=== PATIENT | female | born 1980 | race Caucasian/White ===

== ENCOUNTER 2017-04-14 13:45 | Inpatient (IN) ==
[2017-04-14] MEDS ORDERED: Famotidine 20 MG/2 ML VIAL IVP PRN (13:59)
[2017-04-14] MEDS ORDERED: Metoclopramide 10 MG/2 ML VIAL IVP PRN (13:59)
[2017-04-14] MEDS ORDERED: Naloxone 0.4 MG/ML INJ IVP PRN (13:59)
[2017-04-14] MEDS ORDERED: Ondansetron 4 MG/2 ML VIAL IVP PRN (13:59)
[2017-04-14] MEDS ORDERED: Ringers Solution, Lactated 1,000 ML IVC SCH (14:00)
[2017-04-14] MEDS ORDERED: miSOPROStol 25 MCG TABLET PO PRN (14:35)
[2017-04-14] MEDS ORDERED: Lidocaine 1% 20 ML MDV INFILT PRN (14:35)
[2017-04-14 14:47] LABS: Basophils % 0.3 %; Eosinophils # 0.1 K/mcL (0.0-0.6); Immature Granulocytes % 0.5 % (0-4); Lymphocytes % 24.7 %; Mean Corpuscular HGB Conc 31.4 g/dL (31.6-35.5); Mean Corpuscular Volume 89.1 fL (83.0-100.0); Mean Platelet Volume 10.3 fL (9.4-12.4); Monocytes # 0.5 K/mcL (0.0-1.3); Monocytes % 4.4 %; Neutrophils # 8.4 K/mcL (1.6-8.9); Platelet Count 572 K/mcL (140-400); Red Blood Count 3.93 M/mcL (3.82-4.97); Segmented Neutrophils % 69.1 %
[2017-04-14 14:59] LABS: Alanine Aminotransferase 20 Units/L (7-52); Aspartate Amino Transferase 20 Units/L (13-39); BUN/Creatinine Ratio 20 (6-26); Blood Urea Nitrogen 8 mg/dL (6-20); Lactate Dehydrogenase 123 Units/L (140-271); Uric Acid 4.4 mg/dL (2.3-7.6); eGFR For African Americans > 60 (> 60); eGFR For Non-African Americans > 60 (> 60)
--- NOTE | 2017-04-14 15:02 | OB/GYN History & Physical ---
Date of Encounter: 04/14/17 Time of Encounter: 15:11 Assessment and Plan (1) 39 weeks gestation of Current visit: Yes Status: Acute Plan: - admit to L&D - PIH labs obtained - NST reactive - obtain CBC and drug screen - expectant management. Begin induction with cytotec - anticipate (2) complicated by subutex maintenance, antepartum Current visit: Yes Status: Acute (3) History of heroin use Current visit: Yes Status: Acute History of Present Illness Chief complaint: induction of labor for elevated BP HPI: Ms. Hoover is a 37 year old female at 39+1 weeks presented to labor and delivery for induction of labor 2/2 to elevated blood pressure in the office today and N/V, and changes in vision for the past 4 days. Patient's is uncomplicated subutex use. Reports active movement. Patient denies vaginal bleeding, contractions, leakage of fluids. Denies N/V, changes in vision, SANDRA. Patient follows up with Dr. Cruz. PNL: Blood type A+. GBS neg, RI, HBsAG neg, HIV neg. RPR neg. d Past Med Surg Social Fam HX - Past Medical History Source: patient Medical history: hypertension Psychiatric history: anxiety, depression - Past Surgical History Surgical History: no surgical history - Social History Smoking Status: Current every day smoker Packs per day: 1 Smokeless Tobacco Status: No Alcohol use: none Drug use: marijuana - Family History Sister Adopted: [place]: Summer Allen Age: 39 Living Status: Still Living Hx Family Cardiac Disorders: No Hx Family Respiratory Disorders: No Hx Family Cancer: No Hx Family GI Disorders: No Hx Family Genitourinary Disorders: No Hx Family Endocrine Disorder: No Hx Family Musculoskeletal Disorders: No Hx Family Neuromuscular Disorders: No Hx Family Neurologic Disorders: No Hx Family HEENT Disorders: No Hx Family Autoimmune Disorders: No Hx Family Reproductive Disorders: No Hx Family Psychosocial Disorders: No Hx Family Medical Disorders: No Obstetrical History - Pregnancies : 5 Para: 2 Term: 2 : 0 Ab's: 2 Livin - History/Complications History/Complications: Total pregnancies 5. Total living children 2. Miscarriage(s) 1. (s) 1. # 1: 1999-- elective termination. # 2: 2001--miscarriage--- with hemorrage. # 3 11-17-2002-- vag del at 38 weeks, had increased bp -- induction-- female -- 7 lbs 2 oz at [facility]. # 4: 11-07-2008-- VAG DEL AT 38 WEEKS -- FEMALE 6 LBS 0 OZ-- elevated BP-- INDUCTION-- AT [facility] Medications and Allergies Pepcid 2 tab PO BID 03/12/17 [History] Tablet 1 tab PO DAILY 03/12/17 [History] Subutex 8 mg PO BID 03/12/17 [History] Ferrous Sulfate [Iron] 325 mg PO DAILY 04/14/17 [History] 3 Allergy/AdvReac Type Severity Reaction Status Date / Time No Known Allergies Allergy Verified 08/17/16 12:28 Review of System OB All systems PM: reviewed and no additional remarkable complaints except as stated Exam - Constitutional Constitutional: no acute distress - HEENT HEENT: EOMI - Neck Neck exam: full ROM - Lungs Respiratory exam: CTAB - Cardiovascular Cardiovascular exam: RRR - Abdomen Abdomen: Present: bowel sounds normal - Extremities Extremities exam: full ROM - Cervix Dilation: 1 (per Dr. Cruz's exam) Effacement: 80 - Uterus Uterus exam: Present: normal size Results Result Diagrams: 04/14/17 14:30 04/14/17 14:30 Abnormal lab results WBC 12.1 K/mcL (4.3-11.1) H 04/14/17 14:30 Hgb 11.0 g/dL (11.5-15.4) L 04/14/17 14:30 Hct 35.0 % (35.3-44.9) L 04/14/17 14:30 MCHC 31.4 g/dL (31.6-35.5) L 04/14/17 14:30 RDW 15.0 % (11.5-14.5) H 04/14/17 14:30 Plt Count 572 K/mcL (140-400) H 04/14/17 14:30 Creatinine 0.40 mg/dL (0.60-1.20) L 04/14/17 14:30 Lactate Dehydrogenase 123 Units/L (140-271) L 04/14/17 14:30 All other labs normal. - VTE Reasons for not Prescribing Prophylaxis: Treatment not Indicated - Low risk for VTE - Attending Attestation I examined this patient and my medical decision-making was reviewed with the Resident Physician. I agree with the documented findings, disposition and treatment plan as described. Enid Alvarado CNM
--- NOTE | 2017-04-14 18:49 | Anesthesia Evaluation PreOp ---
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 Currently on Subutex. Started subutex June 2016. Former IV drug user. Had 2 relapses during while on subutex, August and October.), Other (chronic low back pain, pain in both hips.) Anesthesia History: No Prior Anesthetic Complications, Past Anesthesia (Had ORIF of wrist fracture, no problems with GA. No FHAP. Had epidurals with previous 2 pregnancies with no problems.) Alcohol Use: none Drug use: marijuana Medications and Allergies Pepcid 2 tab PO BID 03/12/17 [History] Tablet 1 tab PO DAILY 03/12/17 [History] Subutex 8 mg PO BID 03/12/17 [History] Ferrous Sulfate [Iron] 325 mg PO DAILY 04/14/17 [History] 3 Allergy/AdvReac Type Severity Reaction Status Date / Time No Known Allergies Allergy Verified 08/17/16 12:28 - Meds/Allergy Pre-op Review Medications Reviewed: Yes Allergies Reviewed: Yes Beta Blockers on Current Med List: No Anesthesia Results - Labs 04/14/17 14:30 04/14/17 14:30 Anesthesia Exam 112/62, 95, 16. FHTs 120s. Height: 1.68m Weight: 77kg NPO (# of Hours): >12 Pain Scale: 6 Pain Scale Used: Numeric (1 - 10) - HEENT Pupil (Motor): Pupils equal Mallampati: II Teeth: Poor dentition Oral Opening: Greater than 3 - WHALE FISHERMAN LOC: Oriented WHALE FISHERMAN Motor: Normal RUE, Normal LUE, Normal RLE, Normal LLE, Normal Face WHALE FISHERMAN Sensory: Normal: RUE, LUE, RLE, LLE, Face - Cardiac Rhythm: Regular - Pulmonary Breath Sounds: bilateral Clear Respiratory Effort: Symmetrical Anesthesia Assess/Plan ASA Score: 3 Modified Booker Scale for Level of Consciousness: Cooperative, oriented, and tranquil Anesthetic Plan: Regional Monitoring Plan: Standard Monitors
[2017-04-14] MEDS ORDERED: Bupivacaine-MPF 0.25% 10 ML VIAL EP ONE (18:54)
[2017-04-14] MEDS ORDERED: *HR* FentaNYL (PF) 100 MCG/2 ML VIAL EP ONE (18:54)
[2017-04-14] MEDS ORDERED: Epidural Premix (fent/bupiv) 110 ML EP SCH (19:00)
[2017-04-14] MEDS ORDERED: *HR* Buprenorphine HCl 2 MG SUBLINGUAL TABLET SL SCH (21:00)
[2017-04-14] MEDS ORDERED: Oxytocin 20 units/ LR 1000 mL 20 UNIT/1,000 ML BAG IVC SCH (21:45)
[2017-04-14] MEDS ORDERED: *HR* FentaNYL (PF) 100 MCG/2 ML VIAL ONE (23:56)
[2017-04-14] MEDS ORDERED: Bupivacaine-MPF 0.25% 10 ML VIAL ONE (23:56)
[2017-04-14] MEDS ORDERED: Epidural Premix (fent/bupiv) 110 ML EP ONE (23:56)
[2017-04-15] MEDS ORDERED: Famotidine 20 MG TABLET PO SCH (01:00)
--- NOTE | 2017-04-15 01:02 | Anesthesia Procedures ---
Date of Encounter: 04/15/17 Time of Encounter: 23:59 Procedures: Anesthesia - Epidural/Spinal Patient ID/Chart reviewed: Yes Patient examined: Yes OB Eval: Gestational age: 39 OB Eval: : 5 OB Eval: Hx Para: 2 OB Eval: Dilated at (cm): 3 OB Eval: Contractions: Non-stressed pattern Consent Obtained: Yes Supplemental Oxygen: None/Room Air Site Prep: Aseptic Technique, Sterile prep and drape, Povidone-Iodine 1% Patient position: upright Local Anesthetic: Lidocaine 1% (5) Amount of Local Anesthetic used: 5 Touhy Needle Gauge: 18 Touhy Needle Depth (cm): 5 Catheter Depth at Skin (cm): 15 Test Dose (1.5% Lido + Epi): Volume given (mls): 3 Test Dose Result: Negative Loading Dose: 0.25% Marcaine (mls): 8 Loading Dose: Fentanyl (mcg): 100 Loading Dose Administered: Thru Catheter Infusion Med: 0.125% Bupivacaine w/ 2 mcg/ml Fentanyl Infusion Rate (mls/hr): [address]: Tegaderm, Tape Interspace Used: L2-L3 Loss of Resistance (SUNDAY): Yes Blood: No CSF: No Paresthesia: No Procedure: Attempted procedure initially at L3-4, easily found epidural space, but catheter would not thread. Moved up to L2-3 space and easily placed catheter into epidural space. Vitals + FHT's: 3 Vital Signs Time 2359 0034 0035 0040 0045 BP 113/73 118/75 121/75 115/64 107/59 Pulse 77 86 100 92 89 FHTs 120 120 120 120 120
--- NOTE | 2017-04-15 01:59 | OB Labor Progress Note ---
Date of Encounter: 04/15/17 Time of Encounter: 01:55 Labor Progress Note - Subjective Subjective: Patient resting comfortably after epidural placement - Vital Signs Vital Signs: VSS - Cervix Cervix: 3/80/-2 - Heart Tones Heart Tones: 135 category I - [place]: Contractions every 2-3 m inutes - Plan Plan: Continue routine labor management GBS negative Pain is well controlled Pitocin currently infusing, titrate for adequate labor Anticipate vaginal delivery POC per consult with Dr Lala.
--- NOTE | 2017-04-15 02:19 | OB Labor Progress Note ---
Date of Encounter: 04/15/17 Time of Encounter: 02:23 Labor Progress Note - Subjective Subjective: Patient resting comfortably in bed. - Vital Signs Vital Signs: vss - Cervix Cervix: 3-4/80/-2 - Heart Tones Heart Tones: 130's moderate variability - [place]: contractions every 2-4 minutes - Interventions Interventions: AROM for large amount of clear fluid, IUPC placed without difficulty. Patient and fetus tolerated well. - Plan Plan: Continue routine labor management GBS negative Epidural adequate for pain control IUPC placed/titrate pitocin for adequate labor Anticipate vaginal delivery POC per consult with Dr Lala.
[2017-04-15] MEDS ORDERED: Ibuprofen 600 MG TABLET PO PRN (05:09)
[2017-04-15] MEDS ORDERED: Acetaminophen 325 MG TABLET PO PRN ×2 (05:09→08:02)
[2017-04-15] MEDS ORDERED: Oxytocin 20 units/ LR 1000 mL 20 UNIT/1,000 ML BAG IVC SCH ×2 (05:15→08:02)
[2017-04-15] MEDS ORDERED: Ibuprofen 600 MG TABLET PO ONE (05:24)
--- NOTE | 2017-04-15 05:34 | OB/GYN Procedure Note ---
Delivery - Delivery Date: 04/15/17 Provider: Faith Alvarado ([place] PGY1 Assist) Intrapartum events: none Delivery induction: misoprostol Delivery augmentation: rupture of membranes, pitocin Delivery monitor: external FHT, internal uterine Anesthesia: epidural Estimated Blood Loss: 150 - (s) Infant A Delivery Date: 04/15/17 Infant Delivery Time: 05:33 Presentation: vertex Position: BERRY Route of delivery: Gender: Female Viability: Viable Pounds: 7 Ounces: 8 Weight Gram: 3405 kg at 1 minute: 8 at 5 mins: 8 Shoulder Dystocia: not encountered Placenta: spontaneous Cord: 3 umbilical vessels - Repair Episiotomy: none Laceration Description: None - Complications Delivery complications: none Delivery comments: Patient progressed to complete and began pushing. Patient pushed to of viable, vigorous, female in the BERRY position over an intact perineum. No nuchal, no shoulder dystocia, no meconium encountered. placed on maternal abdomen. Cord double clamped and cut when pulsations ceased. Apgars 8 and 8 at 1 and 5 minutes of age. Placenta delivered spontaneously and appears grossly intact with 3 vessel cord. Upon perineal inspection there are no lacerations noted. EBL 150. Mother stable in recovery. care taken over by nursery team. Dr. Callahan PHY1 assisted with delivery. Dr. Lala notified. - Disposition Mom disposition: stable in LDR [place] disposition: taken to nursery
[2017-04-15] MEDS ORDERED: *HR* Heparin 5,000 UNIT/ML VIAL SQ SCH ×2 (06:00→18:00)
[2017-04-15] MEDS: Prenatal Vit/FA 1 EACH TABLET PO SCH (08:18)
[2017-04-15] MEDS: *HR* Buprenorphine HCl 2 MG SUBLINGUAL TABLET SL SCH ×2 (08:46→21:26)
[2017-04-15] MEDS ORDERED: Prenatal Vit/FA 1 EACH TABLET PO SCH (09:00)
[2017-04-15] MEDS: Ibuprofen 600 MG TABLET PO PRN ×2 (10:15→21:28)
[2017-04-15] MEDS: *HR* Heparin 5,000 UNIT/ML VIAL SQ SCH (19:56)
[2017-04-16] MEDS: Ibuprofen 600 MG TABLET PO PRN (03:03)
[2017-04-16 05:19] LABS: Basophils # 0.1 K/mcL (0.0-0.2); Basophils % 0.4 %; Eosinophils # 0.2 K/mcL (0.0-0.6); Eosinophils % 1.3 %; Hematocrit 28.6 % (35.3-44.9); Immature Granulocytes % 0.6 % (0-4); Lymphocytes % 29.6 %; Mean Corpuscular HGB Conc 32.9 g/dL (31.6-35.5); Mean Corpuscular Hemoglobin 29.1 pg (28.0-33.3); Mean Corpuscular Volume 88.5 fL (83.0-100.0); Mean Platelet Volume 10.1 fL (9.4-12.4); Monocytes # 0.8 K/mcL (0.0-1.3); Monocytes % 6.1 %; Neutrophils # 8.4 K/mcL (1.6-8.9); Platelet Count 506 K/mcL (140-400); Red Blood Count 3.23 M/mcL (3.82-4.97); Red Cell Distribution Width 14.6 % (11.5-14.5)
[2017-04-16 05:22] LABS: Hemoglobin 9.4 g/dL (11.5-15.4)
[2017-04-16] MEDS: *HR* Buprenorphine HCl 2 MG SUBLINGUAL TABLET SL SCH (07:41)
[2017-04-16] MEDS: *HR* Heparin 5,000 UNIT/ML VIAL SQ SCH (07:41)
[2017-04-16] MEDS: Prenatal Vit/FA 1 EACH TABLET PO SCH (07:42)
[2017-04-16 08:27] VITALS: BP 115/79
--- NOTE | 2017-04-16 09:34 | Discharge Summary ---
Date of Encounter: 04/16/17 Time of Encounter: 09:32 - Discharge Diagnosis (1) Vaginal delivery Priority: Primary Status: Acute Comments: Pt meeting all milestones. (2) Breast feeding status of mother Priority: Secondary Status: Acute Comments: Pt has seen (3) History of heroin use Priority: Secondary Status: Acute Comments: Continue subutex - Discharge Medications Prescriptions: Ibuprofen [Motrin] 600 mg PO Q6HR PRN #30 tablet PRN Reason: Cramping Docusate [Colace] 100 mg PO BID #30 capsule Home Medications: Pepcid 2 tab PO BID 03/12/17 [History] Tablet 1 tab PO DAILY 03/12/17 [History] Subutex 8 mg PO BID 03/12/17 [History] Ferrous Sulfate [Iron] 325 mg PO DAILY 04/14/17 [History] Docusate [Colace] 100 mg PO BID #30 capsule 04/16/17 [Rx] Ibuprofen [Motrin] 600 mg PO Q6HR PRN #30 tablet 04/16/17 [Rx] Mupirocin [Bactroban Oint] 1 appl TP BID tube 04/16/17 [Rx] Allergies/Adverse Reactions: 3 Allergy/AdvReac Type Severity Reaction Status Date / Time No Known Allergies Allergy Verified 08/17/16 12:28 Data Procedures and tests throughout hospitalization: Laboratory Tests 04/14/17 04/14/17 04/16/17 14:30 14:30 05:11 WBC 12.1 H 13.5 H RBC 3.93 3.23 L Hgb 11.0 L 9.4 L D Hct 35.0 L 28.6 L MCV 89.1 88.5 MCH 28.0 29.1 MCHC 31.4 L 32.9 RDW 15.0 H 14.6 H Plt Count 572 H 506 H MPV 10.3 10.1 Immature Gran % 0.5 0.6 Seg Neutrophils % 69.1 62.0 Lymphocytes % 24.7 29.6 Monocytes % 4.4 6.1 Eosinophils % 1.0 1.3 Basophils % 0.3 0.4 Neutrophils # 8.4 8.4 Lymphocytes # 3.0 4.0 Monocytes # 0.5 0.8 Eosinophils # 0.1 0.2 Basophils # 0.0 0.1 BUN 8 Creatinine 0.40 L Est GFR ( Amer) > 60 Est GFR (Non-Af Amer) > 60 BUN/Creatinine Ratio 20 Uric Acid 4.4 AST 20 ALT 20 Lactate Dehydrogenase 123 L Labs on day of discharge: Labs from last 24 hours 04/16/17 05:11 WBC 13.5 H RBC 3.23 L Hgb 9.4 L D Hct 28.6 L MCV 88.5 MCH 29.1 MCHC 32.9 RDW 14.6 H Plt Count 506 H MPV 10.1 Immature Gran % 0.6 Seg Neutrophils % 62.0 Lymphocytes % 29.6 Monocytes % 6.1 Eosinophils % 1.3 Basophils % 0.4 Neutrophils # 8.4 Lymphocytes # 4.0 Monocytes # 0.8 Eosinophils # 0.2 Basophils # 0.1 Date of admission: 04/14/17 13:45 Primary care physician: PCP VAUGHN Consults: 04/15/17 05:09 Consult to Stem Dryer Maintainer [CONS] Routine Comment: Vaginal delivery, consult needed Consult to Value Engineer [CONS] Routine Reason for SW Consult: Subutex use Discharging clinician: Lisa Ribeiro Anticipated date of discharge: 04/16/17 - Patient Status Disposition: Home, Self-Care Condition: Good Functional capacity at discharge: independent ambulation Overall status at discharge: patient is progressing back to baseline - Discharge Instructions Follow Up With: NONE,PCP [Primary Care Provider] - Alvaro Cruz MD [Partnered Physician] - - Diet and Activity Activity: increase activity as tolerated Diet: regular diet Hospital Course Reason for admission: induction of labor Delivery: Episiotomy: none Laceration: none Other procedures: none complications: none Discharge diagnosis: IUP at term delivered baby: female Hospital course: - Delivery Date: 04/15/17 Provider: Faith Alvarado ([place] PGY1 Assist) Intrapartum events: none Delivery induction: misoprostol Delivery augmentation: rupture of membranes, pitocin Delivery monitor: external FHT, internal uterine Anesthesia: epidural Estimated Blood Loss: 150 - (s) Infant A Infant Delivery Date: 04/15/17 Infant Delivery Time: 05:33 Presentation: vertex Position: BERRY Route of delivery: Gender: Female Viability: Viable Pounds: 7 Ounces: 8 Weight Gram: 3405 kg at 1 minute: 8 at 5 mins: 8 Shoulder Dystocia: not encountered Placenta: spontaneous Cord: 3 umbilical vessels - Repair Episiotomy: none Laceration Description: None - Complications Delivery complications: none - Disposition Mom disposition: discharge to guest PPD#1 disposition: in nursery for KAYLA observation Time Attestation: Total time spent providing and/or coordinating discharge services: Time Spent: Less than 30 minutes Exam - Constitutional Vitals: Temp Pulse Resp BP Pulse Ox 97.5 F L 78 18 115/79 100 04/16/17 03:30 04/16/17 08:26 04/16/17 08:26 04/16/17 08:26 04/16/17 08:26 General appearance IM: A&O X 3, pleasant, no acute distress - Respiratory Respiratory exam: Present: CTAB - Cardiovascular Cardiovascular exam IM: Present: RRR, +S1, +S2 - GI/Abdominal GI/Abdominal exam IM: soft - External exam: normal external exam Uterine Tone: Firm - Extremities Exam Extremities exam IM: Present: normal inspection - Neurological Exam Neurological exam: normal gait, oriented X3 - Psychiatric Additional comments: reports good mood
== END 2017-04-16 12:53 | disposition home or self-care (01) | DRG 560 ==
LOC: 1NENULAB → OBSVTOIN 13:45 → 1NENUOBS 04-15 08:24
PROVIDERS: ADMIT Obstetrics & Gynecology; ATTEND Obstetrics & Gynecology

== ENCOUNTER 2017-04-25 18:15 | Observation (INO) ==
[2017-04-25 18:42] LABS: Bilirubin,Urine Small (Negative); Blood,Urine Large (Negative); Clarity,Urine Clear (Clear); Color,Urine Yellow (Yellow); Glucose,Urine (UA) Normal (Normal); Ketones,Urine Negative (Negative); Leukocyte Esterase,Urine Negative (Negative); Nitrite,Urine Negative (Negative); Protein,Urine Trace mg/dL (Neg-Trace); Specific Gravity,Urine > 1.030 (1.010-1.025); Urobilinogen,Urine Normal (Normal)
[2017-04-25 18:44] LABS: Bacteria,Urine None Seen per hpf (None-Few); Hyaline Casts,Urine None Seen per lpf (None-Few); Squamous Epithelial Cell,Urine Many per lpf (None-Few); WBC,Urine 15-30 per hpf (0-3)
[2017-04-25 18:59] LABS: Basophils # 0.1 K/mcL (0.0-0.2); Basophils % 0.5 %; Eosinophils # 0.1 K/mcL (0.0-0.6); Hemoglobin 12.7 g/dL (11.5-15.4); Immature Granulocytes % 0.4 % (0-4); Lymphocytes # 2.2 K/mcL (0.6-4.6); Lymphocytes % 20.3 %; Mean Corpuscular HGB Conc 31.8 g/dL (31.6-35.5); Mean Corpuscular Hemoglobin 27.7 pg (28.0-33.3); Mean Corpuscular Volume 87.1 fL (83.0-100.0); Mean Platelet Volume 9.2 fL (9.4-12.4); Monocytes # 0.4 K/mcL (0.0-1.3); Neutrophils # 8.1 K/mcL (1.6-8.9); Platelet Count 538 K/mcL (140-400); Red Blood Count 4.59 M/mcL (3.82-4.97); Red Cell Distribution Width 14.6 % (11.5-14.5); Segmented Neutrophils % 73.8 %
[2017-04-25 19:01] LABS: RBC,Urine 0-3 per hpf (0-3)
[2017-04-25 19:15] LABS: Alanine Aminotransferase 46 Units/L (7-52); Albumin 3.9 g/dL (3.5-5.7); Alkaline Phosphatase 121 Units/L (34-104); Aspartate Amino Transferase 35 Units/L (13-39); BUN/Creatinine Ratio 18 (6-26); Bilirubin,Direct 0.1 mg/dL (0.0-0.2); Bilirubin,Indirect 0.3 mg/dL (0.0-1.2); Bilirubin,Total 0.4 mg/dL (0.3-1.0); Blood Urea Nitrogen 9 mg/dL (6-20); Calcium 9.6 mg/dL (8.6-10.3); Carbon Dioxide 25 mEq/L (23-29); Chloride 103 mEq/L (98-107); Glucose 108 mg/dL (70-105); Lipase 6 Units/L (11-82); Osmolality,Calculated 279 (280-300); Sodium 135 mEq/L (136-145); Total Protein 7.9 g/dL (6.4-8.9); eGFR For African Americans > 60 (> 60); eGFR For Non-African Americans > 60 (> 60)
[2017-04-25] MEDS ORDERED: *HR* FentaNYL (PF) 100 MCG/2 ML VIAL IVP ONE ×2 (19:47→23:07)
[2017-04-25] MEDS ORDERED: 0.9 % Sodium Chloride 1,000 ML IVC ONE (19:47)
--- NOTE | 2017-04-25 19:49 | Emergency Department Note ---
START Narrative - START START: START NOTE: Patient arrives to the treatment area c/o lower abd pain. Recent w/o reported complications. H/O 15 cm ovarian cyst. Labs including CBC, BMP, UA results drawn at triage reviewed by me. Patient uncomfortable appearing on exam. Further care to be completed by Dr. Márquez as of 19:48
[2017-04-25] MEDS ORDERED: Ondansetron 4 MG/2 ML VIAL ONE (19:58)
[2017-04-25] MEDS: Ondansetron 4 MG/2 ML VIAL IVP ONE ×2 (20:07→23:15)
--- NOTE | 2017-04-25 20:19 | Emergency Department Note ---
Disposition Clinical Impression: Vaginal delivery Abdominal pain Qualifiers: Abdominal location: left lower quadrant Qualified Code(s): R10.32 - Left lower quadrant pain Ovarian cyst Qualifiers: Laterality: left Qualified Code(s): N83.202 - Unspecified ovarian cyst, left side Disposition: Admitted As Inpatient Condition: Fair Referrals: NONE,PCP [Primary Care Provider] - Forms: ED Satisfaction Letter, Work/School Release Time of Disposition: 23:17 General Adult HPI - General Chief complaint: ED Abdominal Pain Stated complaint: pain Time Seen by Provider: 04/25/17 19:38 Source: patient Limitations: no limitations Nursing Notes Reviewed: Yes Vital Signs Reviewed: Yes - History of Present Illness HPI Narrative: pt presents for abdominal pain that started this morning just before waking. pt is 10 days at this time. delivered a baby vaginally without issue. she has a know 15 cm cyst on her left ovary. pain is in her left lower abdomen. pt had had worsening pain throughout the day and pain is not going away. pt denies fever, chlls, cp, sob, hardy, vision changes, n/v,d. main complaint and reason for evaluation was pain in the left abdomen. Onset (ago): hour(s) Location: abdomen Radiation: abdomen Pain Severity: moderate Pain Scale: 8 Quality: aching, sharp Consistency: Worsening Improves with: nothing Worsens with: movement Associated symptoms: Reports: denies other symptoms Treatments Prior to Arrival: none - Related Data Home Medications Medication Instructions Recorded Confirmed Pepcid 2 tab PO BID 03/12/17 04/14/17 Tablet 1 tab PO DAILY 03/12/17 04/14/17 Subutex 8 mg PO BID 03/12/17 04/14/17 Ferrous Sulfate [Iron] 325 mg PO DAILY 04/14/17 04/14/17 Previous Rx's Medication Instructions Recorded Docusate [Colace] 100 mg PO BID #30 capsule 04/16/17 Ibuprofen [Motrin] 600 mg PO Q6HR PRN #30 tablet 04/16/17 Mupirocin [Bactroban Oint] 1 appl TP BID tube 04/16/17 Allergies Allergy/AdvReac Type Severity Reaction Status Date / Time No Known Allergies Allergy Verified 08/17/16 12:28 All systems ED: reviewed and negative except as stated. Review of Systems: As Per HPI Constitutional: Denies: fever, chills, weakness ENT ED: Denies: ear pain Cardiovascular: Denies: chest pain, palpitations, dyspnea on exertion, orthopnea Respiratory: Denies: dyspnea, wheezes Gastrointestinal: Reports: abdominal pain. Denies: nausea, vomiting, diarrhea, constipation Musculoskeletal: Denies: back pain, neck pain Integumentary: Denies: rash Neurological: Denies: headache, weakness Psychiatric: Denies: anxiety Past Medical History - Past Medical History Attestation: Yes The following information was validated with the patient. Source: patient Medical history: Reports: no medical history Surgical history: Reports: no surgical history Psychiatric history: Reports: anxiety, depression - Social History Smoking Status: Current every day smoker Smokeless Tobacco Status: No Alcohol use: Reports: none Drug use: Reports: opiates, marijuana Physical Exam - General Limitations: no limitations General appearance: alert - ENT ENT exam: normal exam, normal oropharynx, mucous membranes moist - Neck Neck exam: Present: normal inspection, full ROM, trachea midline. Absent: tenderness - Chest Chest inspection: Present: normal inspection, symmetric chest wall rise. Absent : tenderness - Respiratory Respiratory exam: Present: normal lung sounds bilaterally. Absent: respiratory distress, wheezes - Cardiovascular Cardiovascular exam: Present: regular rate, normal rhythm, normal heart sounds - Abdominal Exam Abdominal exam: Present: soft, tenderness, normal bowel sounds. Absent: distention, guarding, rebound, rigidity, Velasquez's sign, Rovsing's sign, tenderness at McBurney's Point - Extremities Exam Extremities exam: Present: normal inspection - Back Exam Back exam: Present: normal inspection, full ROM. Absent: tenderness - Neurological Exam Neurological exam: Present: alert, oriented X3, CN II-XII intact, normal gait - Skin Skin exam: Present: warm, dry, intact, normal color Course Course Narrative: pt seen and examined at the time of arrival. see hpi. pt is 10 days . denied fever, chills, n/v/d, no hardy, no vision changes. pt is otherwise denying all other issues except for pain in the left lower abdomen that came on this morning just prior to waking from sleep. pt has a know cyst on the left ovary that is 15 cm in diameter. pt is scheduled for surgery to remove the cyst in 3 months. no other new symptoms or complaints. on exam, pain is noted diffusely in the abdomen. concern is that the patient may have torsed the ovary secondary to the cyst. hemodynamics are stable. no fever. abdomen is not rigid. no peritoneal symptoms at this time. lungs are clear, heart regular. no discharge or foul smell vaginally. pt has not been seen by ob since the delivery. fluids, pain medication, labs, ua, and us of abdomen ordered to address torsion at this time. pt may need ct of the abdomen once initial work up is completed. will consult ob once work up is completed. - Reevaluation(s) Reevaluation #1: patient found to have concern for vascular insufficiency to the left ovary. consult placed to obstetrics and gigi. China maxwell and I reviewed the imaging and us. She will review the findings with her Attending Dr. Amos. pt is stable. pt will need further evaluation. no pelvic completed at this time. We will wait for their interpretation of the us for disposition. Time: 22:48 Reevaluation #2: Pt evaluated by big data lead and the attending physician. pt will be taken to the surgical suite for evaluation and treatment. no other recommendations. pain medication given. Time: 23:16 Vital Signs Temperature 97.9 F 04/25/17 18:21 Pulse Rate 77 04/25/17 18:21 Respiratory Rate 18 04/25/17 18:21 Blood Pressure 133/86 04/25/17 18:21 O2 Sat by Pulse Oximetry 100 04/25/17 18:21 Temperature 97.9 F 04/25/17 18:21 Pulse Rate 61 04/25/17 22:24 Respiratory Rate 18 04/25/17 22:24 Blood Pressure 114/93 04/25/17 22:24 O2 Sat by Pulse Oximetry 97 04/25/17 22:24 Oxygen Delivery Oxygen Delivery Room Air Medical Decision Making - MDM Narrative Medical decision making narrative: abdominal pain, post vaginal delivery pain, ovarian cyst - Medical Records Medical records reviewed: Yes I reviewed the patient's medical records. - Lab Data Lab results reviewed: Yes I reviewed the patient's lab results. Result diagrams: 04/25/17 18:49 04/25/17 18:49 Lab Results 04/25/17 04/25/17 04/25/17 Range/Units 18:30 18:49 18:49 WBC 11.0 (4.3-11.1) K/mcL RBC 4.59 (3.82-4.97) M/mcL Hgb 12.7 (11.5-15.4) g/dL Hct 40.0 (35.3-44.9) % MCV 87.1 (83.0-100.0) fL MCH 27.7 L (28.0-33.3) pg MCHC 31.8 (31.6-35.5) g/dL RDW 14.6 H (11.5-14.5) % Plt Count 538 H (140-400) K/mcL MPV 9.2 L (9.4-12.4) fL Immature Gran % 0.4 (0-4) % Seg Neutrophils % 73.8 % Lymphocytes % 20.3 % Monocytes % 4.0 % Eosinophils % 1.0 % Basophils % 0.5 % Neutrophils # 8.1 (1.6-8.9) K/mcL Lymphocytes # 2.2 (0.6-4.6) K/mcL Monocytes # 0.4 (0.0-1.3) K/mcL Eosinophils # 0.1 (0.0-0.6) K/mcL Basophils # 0.1 (0.0-0.2) K/mcL Sodium 135 L (136-145) mEq/L Potassium 5.0 (3.5-5.1) mEq/L Chloride 103 (98-107) mEq/L Carbon Dioxide 25 (23-29) mEq/L BUN 9 (6-20) mg/dL Creatinine 0.49 L (0.60-1.20) mg/dL Est GFR ( Amer) > 60 (> 60) Est GFR (Non-Af Amer) > 60 (> 60) BUN/Creatinine Ratio 18 (6-26) Glucose 108 H (70-105) mg/dL Calculated Osmolality 279 L (280-300) Lactic Acid (0.5-2.2) mmol/L Calcium 9.6 (8.6-10.3) mg/dL Total Bilirubin 0.4 (0.3-1.0) mg/dL Direct Bilirubin 0.1 (0.0-0.2) mg/dL Indirect Bilirubin 0.3 (0.0-1.2) mg/dL AST 35 (13-39) Units/L ALT 46 (7-52) Units/L Alkaline Phosphatase 121 H (34-104) Units/L Serum Total Protein 7.9 (6.4-8.9) g/dL Albumin 3.9 (3.5-5.7) g/dL Globulin 4.0 H (2.4-3.5) g/dL Albumin/Globulin Ratio 1.0 L (1.1-2.2) Lipase 6 L (11-82) Units/L Urine Color Yellow (Yellow) Urine Clarity Clear (Clear) Urine pH 6.0 (5.0-8.0) pH Units Ur Specific [place] > 1.030 H (1.010-1.025) Urine Protein Trace (Neg-Trace) mg/dL Urine Glucose (UA) Normal (Normal) mg/dL Urine Ketones Negative (Negative) mg/dL Urine Blood Large H (Negative) Urine Nitrite Negative (Negative) Urine Bilirubin Small H (Negative) Urine Urobilinogen Normal (Normal) mg/dL Ur Leukocyte Esterase Negative (Negative) Urine Microscopic RBC 0-3 (0-3) per hpf Urine Microscopic WBC 15-30 H (0-3) per hpf Ur Squamous Epith Cells Many H (None-Few) per lpf Urine Bacteria None Seen (None-Few) per hpf Hyaline Casts None Seen (None-Few) per lpf Ur Culture Indicated? NO (NO) 04/25/17 Range/Units 20:44 WBC (4.3-11.1) K/mcL RBC (3.82-4.97) M/mcL Hgb (11.5-15.4) g/dL Hct (35.3-44.9) % MCV (83.0-100.0) fL MCH (28.0-33.3) pg MCHC (31.6-35.5) g/dL RDW (11.5-14.5) % Plt Count (140-400) K/mcL MPV (9.4-12.4) fL Immature Gran % (0-4) % Seg Neutrophils % % Lymphocytes % % Monocytes % % Eosinophils % % Basophils % % Neutrophils # (1.6-8.9) K/mcL Lymphocytes # (0.6-4.6) K/mcL Monocytes # (0.0-1.3) K/mcL Eosinophils # (0.0-0.6) K/mcL Basophils # (0.0-0.2) K/mcL Sodium (136-145) mEq/L Potassium (3.5-5.1) mEq/L Chloride (98-107) mEq/L Carbon Dioxide (23-29) mEq/L BUN (6-20) mg/dL Creatinine (0.60-1.20) mg/dL Est GFR ( Amer) (> 60) Est GFR (Non-Af Amer) (> 60) BUN/Creatinine Ratio (6-26) Glucose (70-105) mg/dL Calculated Osmolality (280-300) Lactic Acid 1.6 (0.5-2.2) mmol/L Calcium (8.6-10.3) mg/dL Total Bilirubin (0.3-1.0) mg/dL Direct Bilirubin (0.0-0.2) mg/dL Indirect Bilirubin (0.0-1.2) mg/dL AST (13-39) Units/L ALT (7-52) Units/L Alkaline Phosphatase (34-104) Units/L Serum Total Protein (6.4-8.9) g/dL Albumin (3.5-5.7) g/dL Globulin (2.4-3.5) g/dL Albumin/Globulin Ratio (1.1-2.2) Lipase (11-82) Units/L Urine Color (Yellow) Urine Clarity (Clear) Urine pH (5.0-8.0) pH Units Ur Specific [place] (1.010-1.025) Urine Protein (Neg-Trace) mg/dL Urine Glucose (UA) (Normal) mg/dL Urine Ketones (Negative) mg/dL Urine Blood (Negative) Urine Nitrite (Negative) Urine Bilirubin (Negative) Urine Urobilinogen (Normal) mg/dL Ur Leukocyte Esterase (Negative) Urine Microscopic RBC (0-3) per hpf Urine Microscopic WBC (0-3) per hpf Ur Squamous Epith Cells (None-Few) per lpf Urine Bacteria (None-Few) per hpf Hyaline Casts (None-Few) per lpf Ur Culture Indicated? (NO) - Radiology Data Radiology results reviewed: Yes I reviewed the patient's radiology results. us concerning for cyst vs. vascular insufficiency
--- NOTE | 2017-04-25 23:34 | OB/GYN History & Physical ---
Date of Encounter: 04/26/17 Time of Encounter: 23:33 Assessment and Plan (1) Ovarian cyst Current visit: Yes Status: Acute Acute abdomen,Ovarian cyst unchanged in size from antepartum US, surgical consent obtained by Dr. Amos Pelvis Ultrasound 04/25/17 19:56 IMPRESSION: 1. No definite findings ovarian torsion. Of note, there is suboptimal visualization of arterial waveforms in the left ovary. However, left ovarian size is unchanged compared to 01/21/2017. 2. 13.1 cm x 12.6 cm x 8.8 cm simple left ovarian physiologic cyst. Recommend follow-up sonography in 1 year. 3. Appropriate enlargement of the uterus given recent childbirth. The endometrium is indistinct, possibly related to status. However, tiny hyperechoic areas within the anterior endometrium could be related to some retained products. Of note, there is fluid within the endometrial cavity, potentially physiologic secretions or blood. 4. Heterogeneous myometrium with indistinct junctional zone margins, findings that can be seen with adenomyosis. D/ / Wang Zelaya MD / Wang Zelaya MD Interpreting Provider: Wang Zelaya MD Risks, benefits, and alternatives discussed with the patient. Informed consent obtained for laparoscopy with possible laparotomy, left oophrectomy and bilateral tubal coagulation/bilateral salpingectomy as patient does not desire future fertility. Qualifiers: Laterality: left Qualified Code(s): N83.202 - Unspecified ovarian cyst, left side (2) History of heroin use Current visit: No Status: Acute On suboxone currently within [facility]. (3) Hepatitis C antibody positive in blood Current visit: Yes Status: Acute (4) Encounter for sterilization Current visit: Yes Status: Acute Papers have previously been signed. Informed consent obtained for permanent sterilization. History of Present Illness Chief complaint: LLQ pain HPI: Ms. Hoover is a 37 year old female 10 days presented to ED with LLQ pain. Pt states she woke up this morning with new onset LLQ pain that increased during the day, currently rates pain 10/10 and it has not been relieved by IV pain medication. Last bowel movement 04/25, Denies fever, flu symptoms, constipation, nausea or emesis, headache today, shortness of breath, visual changes, urinary urgency or dysuria. Continues to have moderate locia, using 6 pads per day. Diagnosed with a large simple left ovarian cyst at suppressed menses. [id number] in January 2017. Pt desires tubal ligation. Past Med Surg Social Fam HX - Past Medical History Source: patient Medical history: hepatitis (C), other (opiod dependance ) Psychiatric history: anxiety, depression - Past Surgical History Surgical History: other (Bone "rebroken" and repaired. Abcess drained on face) - Social History Smoking Status: Current every day smoker Smokeless Tobacco Status: No Alcohol use: none Drug use: opiates, marijuana Current living situation: With Family - Family History Sister Adopted: No Living Status: Still Living Hx Family Cardiac Disorders: No Hx Family Respiratory Disorders: No Hx Family Cancer: No Hx Family GI Disorders: No Hx Family Endocrine Disorder: No Hx Family Neuromuscular Disorders: No Hx Family Neurologic Disorders: No Hx Family HEENT Disorders: No Hx Family Autoimmune Disorders: No Obstetrical History - Pregnancies : 5 Para: 3 Term: 3 : 0 Ab's: 2 Livin Medications and Allergies Pepcid 2 tab PO BID 03/12/17 [History] Tablet 1 tab PO DAILY 03/12/17 [History] Ferrous Sulfate [Iron] 325 mg PO DAILY 04/14/17 [History] Docusate [Colace] 100 mg PO BID #30 capsule 04/16/17 [Rx] Ibuprofen [Motrin] 600 mg PO Q6HR PRN #30 tablet 04/16/17 [Rx] Mupirocin [Bactroban Oint] 1 appl TP BID tube 04/16/17 [Rx] Buprenorphine HCl/Naloxone HCl [Suboxone 8 mg-2 mg Sl Film] 1 each SL BID [History] 3 Allergy/AdvReac Type Severity Reaction Status Date / Time No Known Allergies Allergy Verified 08/17/16 12:28 Review of System OB - Constitutional Constitutional ROS IM: headache(s) (In the last week, but none today. ), no anorexia, no chills, no fatigue, no fever(s), no lethargy - Cardiovascular Cardiovascular: no chest pain with activity, no dyspnea on exertion - Gastrointestinal Gastrointestinal: as per HPI - Menstruation Menstruation: other (Locia continues ) Exam - Vital Signs Vital signs: Initial Vital Signs Temp Pulse Resp BP Pulse Ox 97.9 F 77 18 133/86 100 04/25/17 18:21 18 18:21 04/25/17 18:21 18 18:21 18 18:21 - Constitutional Constitutional: well developed, average body habitus - HEENT HEENT: Mucus Membranes Moist, Other (dentition in poor repair) - Neck Neck exam: full ROM - Lungs Respiratory exam: CTAB - Cardiovascular Cardiovascular exam: +S1, +S2 - Abdomen Abdomen: Present: bowel sounds normal, diffuse tenderness, guarding noted Abdomen detail: right upper quadrant: tenderness (Pt with complaints of severe abdominal pain in all quadrants, Pt rates highest pain in LLQ with palpation.), right lower quadrant: tenderness, left upper quadrant: tenderness, left lower quadrant: tenderness - Extremities Extremities exam: normal capillary refill, normal inspection - Uterus Uterus exam: Present: normal size Results Result Diagrams: 04/25/17 18:49 04/25/17 18:49 Abnormal lab results MCH 27.7 pg (28.0-33.3) L 04/25/17 18:49 RDW 14.6 % (11.5-14.5) H 04/25/17 18:49 Plt Count 538 K/mcL (140-400) H 04/25/17 18:49 MPV 9.2 fL (9.4-12.4) L 18 18:49 Sodium 135 mEq/L (136-145) L 04/25/17 18:49 Creatinine 0.49 mg/dL (0.60-1.20) L 04/25/17 18:49 Glucose 108 mg/dL (70-105) H 18 18:49 Calculated Osmolality 279 (280-300) L 18 18:49 Alkaline Phosphatase 121 Units/L (34-104) H 18 18:49 Globulin 4.0 g/dL (2.4-3.5) H 18 18:49 Albumin/Globulin Ratio 1.0 (1.1-2.2) L 18 18:49 Lipase 6 Units/L (11-82) L 18 18:49 Ur Specific [place] > 1.030 (1.010-1.025) H 04/25/17 18:30 Urine Blood Large (Negative) H 04/25/17 18:30 Urine Bilirubin Small (Negative) H 04/25/17 18:30 Urine Microscopic WBC 15-30 per hpf (0-3) H 04/25/17 18:30 Ur Squamous Epith Cells Many per lpf (None-Few) H 04/25/17 18:30 All other labs normal. US - abdomen: report reviewed, image reviewed
--- NOTE | 2017-04-26 00:06 | Anesthesia Evaluation PreOp ---
Date of Encounter: 04/26/17 Time of Encounter: 00:10 - Past History Planned Operation: Diagnostic Lap Possible Oophorectomy Cardiac History: Denies any Significant Hx Pulmonary History: Smoker RETURN TO VENDOR History: Denies Any Significant HX Other Medical History: Denies Any Significant HX Anesthesia History: No Prior Anesthetic Complications : No Alcohol Use: none Drug use: opiates, marijuana Medications and Allergies Pepcid 2 tab PO BID 03/12/17 [History] Tablet 1 tab PO DAILY 03/12/17 [History] Subutex 8 mg PO BID 03/12/17 [History] Ferrous Sulfate [Iron] 325 mg PO DAILY 04/14/17 [History] Docusate [Colace] 100 mg PO BID #30 capsule 04/16/17 [Rx] Ibuprofen [Motrin] 600 mg PO Q6HR PRN #30 tablet 04/16/17 [Rx] Mupirocin [Bactroban Oint] 1 appl TP BID tube 04/16/17 [Rx] 3 Allergy/AdvReac Type Severity Reaction Status Date / Time No Known Allergies Allergy Verified 08/17/16 12:28 - Meds/Allergy Pre-op Review Medications Reviewed: Yes Allergies Reviewed: Yes Beta Blockers on Current Med List: No Anesthesia Results - Labs 04/25/17 18:49 04/25/17 18:49 Laboratory Tests 04/25/17 04/25/17 18:49 18:49 Hgb 12.7 Hct 40.0 Plt Count 538 H Sodium 135 L Potassium 5.0 BUN 9 Creatinine 0.49 L Anesthesia Exam O2 Sat Height 1.68 m Weight 72.121 kg O2 Sat by Pulse Oximetry 99 O2 Sat by Pulse Oximetry 97 O2 Sat by Pulse Oximetry 100 O2 Sat by Pulse Oximetry 100 O2 Sat by Pulse Oximetry 100 Vital Signs Temp Pulse Resp BP Pulse Ox 97.9 F 77 18 133/86 100 04/25/17 18:21 04/25/17 18:21 04/25/17 18:21 04/25/17 18:21 04/25/17 18:21 Height: 5'6 Weight: 159 lbs NPO (# of Hours): MN Pain Scale: 0 - HEENT Pupil (Motor): Pupils equal, EOMI Mallampati: II Teeth: Normal Oral Opening: Greater than 3 - RETURN TO VENDOR LOC: Oriented RETURN TO VENDOR Motor: Normal RUE, Normal LUE, Normal RLE, Normal LLE, Normal Face RETURN TO VENDOR Sensory: Normal: RUE, LUE, RLE, LLE, Face - Cardiac Rhythm: Regular Murmur: None JVD: No Carotid Bruit: No - Pulmonary Breath Sounds: bilateral Clear Respiratory Effort: Symmetrical Anesthesia Assess/Plan ASA Score: 2, E Modified Booker Scale for Level of Consciousness: Cooperative, oriented, and tranquil Anesthetic Plan: General, Regional Monitoring Plan: Standard Monitors Recovery Plan: PACU (Discussed GA and possible TAP Block post op, agrees to proceed)
[2017-04-26] MEDS ORDERED: *HR* Rocuronium Bromide 50 MG/5 ML VIAL ONE (00:10)
[2017-04-26] MEDS ORDERED: *HR* FentaNYL (PF) 100 MCG/2 ML VIAL ONE (00:10)
[2017-04-26] MEDS ORDERED: Dexamethasone 4 MG/ML VIAL ONE (00:10)
[2017-04-26] MEDS ORDERED: *HR* Propofol 200 MG/20 ML VIAL IVP ONE (00:10)
[2017-04-26] MEDS ORDERED: Lidocaine -MPF 2% 2 ML VIAL ONE (00:10)
[2017-04-26] MEDS ORDERED: Ondansetron 4 MG/2 ML VIAL ONE (00:10)
[2017-04-26] MEDS ORDERED: Albuterol 2.5 MG/3 ML NEBULIZER ONE (00:27)
[2017-04-26] MEDS ORDERED: Ringers Solution, Lactated 1,000 ML ONE (00:27)
[2017-04-26] MEDS ORDERED: Bupivacaine/EPI 1:200k 0.5%PF 30 ML VIAL ONE (00:43)
[2017-04-26] MEDS ORDERED: Famotidine 20 MG/2 ML VIAL ONE (00:44)
[2017-04-26] MEDS ORDERED: Lidocaine 1% 20 ML MDV ONE (00:45)
[2017-04-26] MEDS ORDERED: *HR* Ropivacaine/PF 0.5% 20 ML VIAL ONE (00:45)
[2017-04-26] MEDS ORDERED: *HR* PHENYLEPHRINE 1,000 MCG/10 ML SYRINGE IVP ONE (01:17)
[2017-04-26] MEDS ORDERED: Neostigmine Methylsulfate 3 MG/3 ML SYRINGE ONE (02:21)
--- NOTE | 2017-04-26 02:33 | OB/GYN Procedure Note ---
Laparoscopy Procedure - Diagnosis Date of procedure: 04/26/17 Pre-op diagnosis: acute pelvic pain, ovarian cyst (left ovarian torsion, undesired fertility) Post-op diagnosis: same - Procedure Laparoscopy procedure: operative laparoscopy, left salpingo oophorectomy, other (right salpingectomy) Surgeon: Simona Amos Was there an doctor assistant present: No Anesthesia provider: Jose Alberto Lang Anesthesia Type: General Estimated blood loss (cc): 10 Complications: none Specimens: left ovary, right fallopian tube, left fallopian tube Findings: enlarged left ovary was dark in appearance and torsed on IP ligament. Normal appearing right ovary and tube. uterus. Disposition: PACU Narrative: Patient is taken to the operative suite and placed under general anesthesia without difficulty. She was then prepped and draped in normal sterile fashion in the dorsal lithotomy position. Timeout was then performed. Antibiotics were given at room time. A weighted speculum was placed in the patient's vagina and the anterior lip of the cervix grasped with single-tooth tenaculum. Uterine manipulator is then placed. Attention is then turned to the patient's abdomen.The infra umbilical area is anesthetized using half percent Marcaine with epinephrine and a stab incision is then made. A bladeless trocar is then inserted under direct visualization. Pneumoperitoneum was then created. Evaluation the pelvis reveals an enlarged left ovary that is dark in appearance and torsed on the left infundibulopelvic ligament. A 12 mm suprapubic port is then placed under direct visualization. A 5 mm left pelvic port is then placed under direct visualization. This enlarged ovary is retracted medially and the infundibulopelvic ligament and tube were transected and coagulated using the LigaSure device thus freeing the ovary and tube. Attention is then turned to the patient's right tube which is normal in appearance, the tube is dissected off the mesosalpinx and transected. The right tube was then placed in an Endo Catch bag and removed from the abdomen. The left ovary was then drained of 750 mL of blood-tinged and serosanguineous fluid. The right ovary is then brought to the suprapubic incision which was extended to allow removal of the ovarian complex. The fascial incision at the suprapubic location is then closed using 0 Vicryl in a running locked fashion. Pneumoperitoneum was then reestablished. Irrigation was used to clear the abdomen of all clots and debris. Hemostasis assured at all dissection points. The left pelvic port was then removed under direct visualization. The gas allowed to escape from the abdomen through the umbilical trocar. The umbilical trochars and removed. The suprapubic port skin incision is closed with 3-0 Vicryl in a running fashion. The remainder of the incisions are closed using 4- 0 Vicryl in an interrupted fashion. Steri-Strips and sterile dressing are placed. All instruments removed from the patient's vagina. Sponge and needle counts correct in the procedure. Patient was taken to PACU extubated and in stable condition.
--- NOTE | 2017-04-26 03:12 | Anesthesia Procedures ---
Date of Encounter: 04/26/17 Time of Encounter: 00:05 Procedures: Anesthesia - Nerve Block Procedure Date: 04/26/17 Time: 02:40 Pre-op Diagnosis: Torsion Ovary Surgical Procedure: Diagnostic Lap Oophorectomy Checklist: Correct Patient Identifier Correct side: Right Blood Thinner: No Monitor Applied: EKG, BP, Pulse Oximetry Indication: Post Op Analgesia Pre-op Neuro Deficits: No Block Type: Other (TAP Block) Catheter placed: No Depth at skin (cm): 2 Sterile Technique: Yes Ultrasound used: Yes Anatomy identified: Yes Visual spread of Local: Yes Neuro Stimulation: No Blood on Needle Aspiration: No Smooth Injection of Local: Yes Pain with Injection of Local: No Prep: Chlorhexadine Needle: 22 x 50 mm Stimuplex Local: Ropivacaine (0.25%), Other (Lidocaine 1%) Volume (cc): 50cc Number of Attempts: 1 Complications: None/effective block Vitals: Vital Signs/O2 Sat/Glucose, Most Current Temp Pulse Resp BP Pulse Ox 04/26/17 03:03 68 14 105/64 97 04/26/17 02:53 97.9 F 79 12 104/75 92 04/25/17 23:40 22 112/58 04/25/17 23:17 66 22 114/93 99
--- NOTE | 2017-04-26 03:14 | Anesthesia Evaluation Post Op ---
Date of Encounter: 04/26/17 Time of Encounter: 03:25 - Vital Signs Vital Signs: Vital Signs/O2 Sat/Glucose, Most Current Temp Pulse Resp BP Pulse Ox 04/26/17 03:03 68 14 105/64 97 04/26/17 02:53 97.9 F 79 12 104/75 92 04/25/17 23:40 22 112/58 04/25/17 23:17 66 22 114/93 99 - Lungs Lungs: Clear Ascult./Percussion - Airway Airway: Non-obstructed - Cardiovascular Regular Rate - Mental Status Mental Status: Alert & Oriented, Answers Appropriately - Pain Pain Scale: 0 - Nausea Vomiting Nausea Vomiting: Not Present - Hydration Hydration: Ice chips - Discharge PostOp Status: Transfer Patient to floor
[2017-04-26] MEDS ORDERED: Ringers Solution, Lactated 1,000 ML IVC SCH (03:50)
[2017-04-26] MEDS ORDERED: *HR* OxyCODONE Immed Rel 5 MG TABLET PO PRN (03:50)
[2017-04-26] MEDS ORDERED: Ibuprofen 600 MG TABLET PO PRN (03:50)
[2017-04-26] MEDS ORDERED: Naloxone 0.4 MG/ML INJ IVP PRN (03:50)
[2017-04-26] MEDS: *HR* OxyCODONE Immed Rel 5 MG TABLET PO PRN ×2 (04:07→08:43)
[2017-04-26 08:45] VITALS: BP 91/43
[2017-04-26] MEDS ORDERED: (Suboxone 8 Mg-2 Mg SL) SL SCH (09:00)
--- NOTE | 2017-04-26 11:09 | Discharge Summary ---
Outpatient Proc Discharge Plan - Plan Prescriptions: OxyCODONE Immed Rel [Roxicodone 5 MG] 10 mg PO Q4HR PRN 2 Days #12 tablet PRN Reason: Moderate Pain (4-6) Home Medications: Pepcid 2 tab PO BID 03/12/17 [History] Tablet 1 tab PO DAILY 03/12/17 [History] Ferrous Sulfate [Iron] 325 mg PO DAILY 04/14/17 [History] Docusate [Colace] 100 mg PO BID #30 capsule 04/16/17 [Rx] Ibuprofen [Motrin] 600 mg PO Q6HR PRN #30 tablet 04/16/17 [Rx] Mupirocin [Bactroban Oint] 1 appl TP BID tube 04/16/17 [Rx] Buprenorphine HCl/Naloxone HCl [Suboxone 8 mg-2 mg Sl Film] 1 each SL BID [History] OxyCODONE Immed Rel [Roxicodone 5 MG] 10 mg PO Q4HR PRN 2 Days #12 tablet [Rx]
== END 2017-04-26 11:50 | disposition home or self-care (01) ==
LOC: EMEROO 18:15 → 1NENUOBS 18:15
PROVIDERS: ADMIT Obstetrics & Gynecology; ATTEND Obstetrics & Gynecology

== ENCOUNTER 2018-05-25 10:44 | Inpatient (IN) ==
[2018-05-25 11:56] LABS: Bilirubin,Urine Large (Negative); Blood,Urine Negative (Negative); Clarity,Urine Cloudy (Clear); Color,Urine Orange (Yellow); Glucose,Urine (UA) Normal (Normal); Ketones,Urine Trace mg/dL (Negative); Leukocyte Esterase,Urine Small (Negative); Nitrite,Urine Positive (Negative); Protein,Urine 30 mg/dL (Neg-Trace); Specific Gravity,Urine 1.021 (1.010-1.025); Urobilinogen,Urine Normal (Normal)
[2018-05-25 12:02] LABS: Bacteria,Urine None Seen per hpf (None-Few); Hyaline Casts,Urine None Seen per lpf (None-Few); RBC,Urine 0-3 per hpf (0-3); Squamous Epithelial Cell,Urine Many per lpf (None-Few); WBC,Urine 0-3 per hpf (0-3)
[2018-05-25 12:32] LABS: Basophils % 0.5 %; Eosinophils % 0.4 %; Hematocrit 43.6 % (35.3-44.9); Hemoglobin 14.2 g/dL (11.5-15.4); Immature Granulocytes % 0.2 % (0-4); Lymphocytes # 1.3 K/mcL (0.6-4.6); Lymphocytes % 15.7 %; Mean Corpuscular HGB Conc 32.6 g/dL (31.6-35.5); Mean Corpuscular Hemoglobin 28.3 pg (28.0-33.3); Mean Platelet Volume 10.6 fL (9.4-12.4); Monocytes # 0.4 K/mcL (0.0-1.3); Monocytes % 4.9 %; Neutrophils # 6.7 K/mcL (1.6-8.9); Platelet Count 291 K/mcL (140-400); Red Blood Count 5.01 M/mcL (3.82-4.97); Red Cell Distribution Width 15.2 % (11.5-14.5); Segmented Neutrophils % 78.3 %
[2018-05-25 12:43] LABS: Alanine Aminotransferase 392 Units/L (7-52); Albumin 4.6 g/dL (3.5-5.7); Albumin/Globulin Ratio 1.2 (1.1-2.2); Alkaline Phosphatase 568 Units/L (34-104); Aspartate Amino Transferase 222 Units/L (13-39); BUN/Creatinine Ratio 11 (6-26); Bilirubin,Direct 5.7 mg/dL (0.0-0.2); Bilirubin,Indirect 2.4 mg/dL (0.0-1.2); Bilirubin,Total 8.1 mg/dL (0.3-1.0); Blood Urea Nitrogen 6 mg/dL (6-20); Carbon Dioxide 30 mEq/L (23-29); Chloride 98 mEq/L (98-107); Glucose 102 mg/dL (70-105); Lipase 7 Units/L (11-82); Osmolality,Calculated 280 (280-300); Sodium 136 mEq/L (136-145); Total Protein 8.6 g/dL (6.4-8.9); eGFR For Non-African Americans > 60 (> 60)
[2018-05-25] MEDS ORDERED: 0.9 % Sodium Chloride 1,000 ML IVC ONE ×2 (14:35→21:52)
[2018-05-25] MEDS ORDERED: Ketorolac 30 MG/ML VIAL IVP ONE (14:35)
[2018-05-25] MEDS ORDERED: Metoclopramide 10 MG/2 ML VIAL IVP ONE (14:36)
--- NOTE | 2018-05-25 14:39 | Emergency Department Note ---
Disposition Clinical Impression: Obstructive jaundice Disposition: Admitted As Inpatient Condition: Fair Referrals: Elisa Steele MD [Primary Care Provider] - Forms: ED Satisfaction Letter Time of Disposition: 17:33 General Adult HPI - General Chief complaint: ED Nausea/Vomiting/Diarrhea Stated complaint: Mulitple complaints Time Seen by Provider: 05/25/18 14:30 Source: patient Limitations: no limitations - History of Present Illness HPI Narrative: This is a 38-year-old female presents emergency department for acute jaundice. Beginning just this week. She has had some pain in the right upper quadrant. She states that her urine is discolored. Pain is rated as a 10 out of 10. She states that she is having trouble with food and fluid intake. No fever. No recent travel. No sick contacts. Pain Scale: 9 - Related Data Home Medications Medication Instructions Recorded Confirmed Pepcid 2 tab PO BID 03/12/17 04/14/17 Tablet 1 tab PO DAILY 03/12/17 04/14/17 Ferrous Sulfate [Iron] 325 mg PO DAILY 04/14/17 04/14/17 Buprenorphine HCl/Naloxone HCl 1 each SL BID 04/26/17 04/26/17 [Suboxone 8 mg-2 mg Sl Film] Previous Rx's Medication Instructions Recorded Docusate [Colace] 100 mg PO BID #30 capsule 04/16/17 Ibuprofen [Motrin] 600 mg PO Q6HR PRN #30 tablet 04/16/17 Mupirocin [Bactroban Oint] 1 appl TP BID tube 04/16/17 OxyCODONE Immed Rel [Roxicodone 5 10 mg PO Q4HR PRN 2 Days #12 tablet 04/26/17 MG] Allergies Allergy/AdvReac Type Severity Reaction Status Date / Time No Known Allergies Allergy Verified 08/17/16 12:28 All systems ED: reviewed and negative except as stated. Constitutional: Denies: fever Cardiovascular: Denies: chest pain Respiratory: Denies: dyspnea Gastrointestinal: Reports: nausea, vomiting Past Medical History - Past Medical History Medical history: Reports: hepatitis, other Surgical history: Reports: other (Bone "rebroken" and repaired. Abcess drained on face) Psychiatric history: Reports: anxiety, depression - Social History Smoking Status: Current every day smoker Smokeless Tobacco Status: No Alcohol use: Reports: none Drug use: Reports: opiates, marijuana Physical Exam - General Limitations: no limitations General appearance: alert, in no apparent distress - Head Head exam: atraumatic, normocephalic - Eye Eye exam: Present: EOMI, scleral icterus - ENT ENT exam: normal oropharynx - Neck Neck exam: Present: normal inspection - Chest Chest inspection: Present: normal inspection, symmetric chest wall rise - Respiratory Respiratory exam: Present: normal lung sounds bilaterally. Absent: wheezes - Cardiovascular Cardiovascular exam: Present: regular rate, normal rhythm - Abdominal Exam Abdominal exam: Present: other (RUQ tenderness) - Neurological Exam Neurological exam: Present: alert, oriented X3 - Psychiatric Psychiatric exam: Present: normal affect - Skin Skin exam: Present: other (Jaundiced appearing) Course Course Narrative: This patient presents with grossly obvious jaundice and scleral icterus. Her total bilirubin is greater than 8 and her liver transaminases are elevated. She does have right upper quadrant pain. This is suggestive of a biliary obstr uctive process. We have obtained a gallbladder ultrasound which was interpreted by the radiologist with evidence of cholecystitis but also dilatation of the common bile duct which in conjunction with the labs suggest that she likely has a CBD stone. The case was initially discussed with general surgery Dr. Desean Crane do feel that this should go to medicine with a GI consult and this has been arranged. Vital Signs Temperature 98.8 F 05/25/18 10:56 Pulse Rate 98 05/25/18 10:56 Respiratory Rate 15 05/25/18 10:56 Blood Pressure 150/81 05/25/18 10:56 O2 Sat by Pulse Oximetry 96 05/25/18 10:56 Temperature 98.8 F 05/25/18 10:56 Pulse Rate 66 05/25/18 16:43 Respiratory Rate 16 05/25/18 16:43 Blood Pressure 112/81 05/25/18 16:43 O2 Sat by Pulse Oximetry 99 05/25/18 16:43 Oxygen Delivery Oxygen Delivery Room Air Medical Decision Making - Medical Records Medical records reviewed: Yes I reviewed the patient's medical records. - Lab Data Lab results reviewed: Yes I reviewed the patient's lab results. Result diagrams: 05/25/18 11:41 05/25/18 11:41 Lab Results 05/25/18 05/25/18 05/25/18 Range/Units 11:32 11:32 11:41 WBC 8.5 (4.3-11.1) K/mcL RBC 5.01 H (3.82-4.97) M/mcL Hgb 14.2 (11.5-15.4) g/dL Hct 43.6 (35.3-44.9) % MCV 87.0 (83.0-100.0) fL MCH 28.3 (28.0-33.3) pg MCHC 32.6 (31.6-35.5) g/dL RDW 15.2 H (11.5-14.5) % Plt Count 291 (140-400) K/mcL MPV 10.6 (9.4-12.4) fL Immature Gran % 0.2 (0-4) % Seg Neutrophils % 78.3 % Lymphocytes % 15.7 % Monocytes % 4.9 % Eosinophils % 0.4 % Basophils % 0.5 % Neutrophils # 6.7 (1.6-8.9) K/mcL Lymphocytes # 1.3 (0.6-4.6) K/mcL Monocytes # 0.4 (0.0-1.3) K/mcL Eosinophils # 0.0 (0.0-0.6) K/mcL Basophils # 0.0 (0.0-0.2) K/mcL Sodium (136-145) mEq/L Potassium (3.5-5.1) mEq/L Chloride (98-107) mEq/L Carbon Dioxide (23-29) mEq/L BUN (6-20) mg/dL Creatinine (0.60-1.20) mg/dL Est GFR ( Amer) (> 60) Est GFR (Non-Af Amer) (> 60) BUN/Creatinine Ratio (6-26) Glucose (70-105) mg/dL Calculated Osmolality (280-300) Calcium (8.6-10.3) mg/dL Total Bilirubin (0.3-1.0) mg/dL Direct Bilirubin (0.0-0.2) mg/dL Indirect Bilirubin (0.0-1.2) mg/dL AST (13-39) Units/L ALT (7-52) Units/L Alkaline Phosphatase (34-104) Units/L Serum Total Protein (6.4-8.9) g/dL Albumin (3.5-5.7) g/dL Globulin (2.4-3.5) g/dL Albumin/Globulin Ratio (1.1-2.2) Lipase (11-82) Units/L Urine Color [place] A (Yellow) Urine Clarity Cloudy A (Clear) Urine pH 7.0 (5.0-8.0) pH Units Ur Specific [place] 1.021 (1.010-1.025) Urine Protein 30 H (Neg-Trace) mg/dL Urine Glucose (UA) Normal (Normal) mg/dL Urine Ketones Trace H (Negative) mg/dL Urine Blood Negative (Negative) Urine Nitrite Positive A (Negative) Urine Bilirubin Large H (Negative) Urine Urobilinogen Normal (Normal) mg/dL Ur Leukocyte Esterase Small H (Negative) Urine Microscopic RBC 0-3 (0-3) per hpf Urine Microscopic WBC 0-3 (0-3) per hpf Ur Squamous Epith Cells Many H (None-Few) per lpf Urine Bacteria None Seen (None-Few) per hpf Hyaline Casts None Seen (None-Few) per lpf Urine Test Negative (Negative) 05/25/18 Range/Units 11:41 WBC (4.3-11.1) K/mcL RBC (3.82-4.97) M/mcL Hgb (11.5-15.4) g/dL Hct (35.3-44.9) % MCV (83.0-100.0) fL MCH (28.0-33.3) pg MCHC (31.6-35.5) g/dL RDW (11.5-14.5) % Plt Count (140-400) K/mcL MPV (9.4-12.4) fL Immature Gran % (0-4) % Seg Neutrophils % % Lymphocytes % % Monocytes % % Eosinophils % % Basophils % % Neutrophils # (1.6-8.9) K/mcL Lymphocytes # (0.6-4.6) K/mcL Monocytes # (0.0-1.3) K/mcL Eosinophils # (0.0-0.6) K/mcL Basophils # (0.0-0.2) K/mcL Sodium 136 (136-145) mEq/L Potassium 4.0 (3.5-5.1) mEq/L Chloride 98 (98-107) mEq/L Carbon Dioxide 30 H (23-29) mEq/L BUN 6 (6-20) mg/dL Creatinine 0.57 L (0.60-1.20) mg/dL Est GFR ( Amer) > 60 (> 60) Est GFR (Non-Af Amer) > 60 (> 60) BUN/Creatinine Ratio 11 (6-26) Glucose 102 (70-105) mg/dL Calculated Osmolality 280 (280-300) Calcium 10.0 (8.6-10.3) mg/dL Total Bilirubin 8.1 H (0.3-1.0) mg/dL Direct Bilirubin 5.7 H (0.0-0.2) mg/dL Indirect Bilirubin 2.4 H (0.0-1.2) mg/dL AST 222 H (13-39) Units/L ALT 392 H (7-52) Units/L Alkaline Phosphatase 568 H (34-104) Units/L Serum Total Protein 8.6 (6.4-8.9) g/dL Albumin 4.6 (3.5-5.7) g/dL Globulin 4.0 H (2.4-3.5) g/dL Albumin/Globulin Ratio 1.2 (1.1-2.2) Lipase 7 L (11-82) Units/L Urine Color (Yellow) Urine Clarity (Clear) Urine pH (5.0-8.0) pH Units Ur Specific [place] (1.010-1.025) Urine Protein (Neg-Trace) mg/dL Urine Glucose (UA) (Normal) mg/dL Urine Ketones (Negative) mg/dL Urine Blood (Negative) Urine Nitrite (Negative) Urine Bilirubin (Negative) Urine Urobilinogen (Normal) mg/dL Ur Leukocyte Esterase (Negative) Urine Microscopic RBC (0-3) per hpf Urine Microscopic WBC (0-3) per hpf Ur Squamous Epith Cells (None-Few) per lpf Urine Bacteria (None-Few) per hpf Hyaline Casts (None-Few) per lpf Urine Test (Negative) - Radiology Data Radiology results reviewed: Yes I reviewed the patient's radiology results.
[2018-05-25] MEDS ORDERED: *HR* FentaNYL (PF) 100 MCG/2 ML VIAL IVP ONE (17:07)
--- NOTE | 2018-05-25 18:23 | Internal Med History&Physical ---
Date of Encounter: 05/25/18 Time of Encounter: 11:00 Internal Medicine - H&P: HPI Chief complaint: Abdominal pain Admitted From: Home Plans for Post Hospital Care: Home History of present illness: Patient is a 38-year-old female with past medical history significant for IV drug abuse and hepatitis C who presents to the ER due to abdominal pain and jaundice. She reports a one-week history of generalized abdominal pain and jaundice with nausea/vomiting. Patient decided to come to the ER for evaluation. In the ER patient was found to have elevated transaminases with a total bili of 8.1 direct bili of 5.7 and direct bili of 2.4 AST of 222 ALT 392 and alk phosphatase 568. Upper quadrant ultrasound demonstrated cholelithiasis along with findings concerning for acute cholecystitis with positive Velasquez sign. She will be admitted to medical surgical floor for further management. Past Med Surg Social Fam HX - Past Medical History Medical history: hepatitis, other Psychiatric history: anxiety, depression - Past Surgical History Surgical History: other (Bone "rebroken" and repaired. Abcess drained on face) - Social History Smoking Status: Current every day smoker Smokeless Tobacco Status: No Alcohol use: none Drug use: opiates, marijuana - Family History Sister Adopted: No Living Status: Still Living Hx Family Cardiac Disorders: No Hx Family Respiratory Disorders: No Hx Family Cancer: No Hx Family GI Disorders: No Hx Family Endocrine Disorder: No Hx Family Neuromuscular Disorders: No Hx Family Neurologic Disorders: No Hx Family HEENT Disorders: No Hx Family Autoimmune Disorders: No Internal Medicine - H&P: Meds Pepcid 2 tab PO BID 03/12/17 [History] Tablet 1 tab PO DAILY 03/12/17 [History] Ferrous Sulfate [Iron] 325 mg PO DAILY 04/14/17 [History] Docusate [Colace] 100 mg PO BID #30 capsule 04/16/17 [Rx] Ibuprofen [Motrin] 600 mg PO Q6HR PRN #30 tablet 04/16/17 [Rx] Mupirocin [Bactroban Oint] 1 appl TP BID tube 04/16/17 [Rx] Buprenorphine HCl/Naloxone HCl [Suboxone 8 mg-2 mg Sl Film] 1 each SL BID 04/26/17 [History] OxyCODONE Immed Rel [Roxicodone 5 MG] 10 mg PO Q4HR PRN 2 Days #12 tablet 04/26/17 [Rx] Allergy/AdvReac Type Severity Reaction Status Date / Time No Known Allergies Allergy Verified 08/17/16 12:28 All Systems PM: A 10-system review of systems was performed and is negative for pertinent findings except as documented above in the HPI. - Constitutional Vitals: Temp Pulse Resp BP Pulse Ox 98.8 F 75 16 100/70 99 05/25/18 10:56 05/25/18 17:00 05/25/18 17:00 05/25/18 17:00 05/25/18 17:00 General appearance: Present: A&O X 3 Exam: As above - Head Head exam: Present: normocephalic - Eye Eye exam: Present: normal appearance - Respiratory Respiratory exam: Present: CTAB. Absent: accessory muscle use, rales, rhonchi, wheezes - Cardiovascular Cardiovascular exam: Present: RRR, +S1, +S2. Absent: diastolic murmur, gallop, rubs, systolic murmur - GI/Abdominal GI/Abdominal exam: Present: normal bowel sounds, soft, no peritoneal signs. Absent: distended, tenderness - Neurological Exam Neurological exam: Present: oriented X3 - Psychiatric Psychiatric exam: Present: normal mood Internal Med - H&P Results - Labs CBC & Chem 7: 05/25/18 11:41 05/25/18 11:41 Labs: Short CBC 05/25/18 Range/Units 11:41 WBC 8.5 (4.3-11.1) K/mcL Hgb 14.2 (11.5-15.4) g/dL Hct 43.6 (35.3-44.9) % Plt Count 291 (140-400) K/mcL Neutrophils # 6.7 (1.6-8.9) K/mcL BMP 05/25/18 11:41 Sodium 136 Potassium 4.0 Chloride 98 Carbon Dioxide 30 H BUN 6 Creatinine 0.57 L Glucose 102 Calcium 10.0 Liver Function 05/25/18 Range/Units 11:41 Total Bilirubin 8.1 H (0.3-1.0) mg/dL Direct Bilirubin 5.7 H (0.0-0.2) mg/dL AST 222 H (13-39) Units/L ALT 392 H (7-52) Units/L Alkaline Phosphatase 568 H (34-104) Units/L Albumin 4.6 (3.5-5.7) g/dL Urine 05/25/18 Range/Units 11:32 Urine Color [place] A (Yellow) Urine Clarity Cloudy A (Clear) Urine pH 7.0 (5.0-8.0) pH Units Ur Specific [employer] [facility] 1.021 (1.010-1.025) Urine Protein 30 H (Neg-Trace) mg/dL Urine Glucose (UA) Normal (Normal) mg/dL - Impressions ITS Impressions Gallbladder Ultrasound 05/25/18 14:34 IMPRESSION: Cholelithiasis along with findings concerning for acute cholecystitis with positive sonographic Velasquez's sign along with gallbladder wall thickening. Distention of common bile duct along with intrahepatic biliary ducts without definite intraluminal filling defect to the visualized common bile duct but possibly with some tapering of the duct towards intrapancreatic portion. With the clinical history of jaundice consider further evaluation with MRCP or ERCP. D/ / 05/25/2018 16:11:40 Filemon Palmer MD / renetta Interpreting Provider: Filemon Palmer MD - Assessment and Plan (1) Jaundice Current Visit: Yes Status: Acute Assessment and plan: Patient presents with a one-week history of jaundice with abdominal pain found to have elevated transaminases on admission. Patient with cholelithiasis on right upper quadrant ultrasound therefore concerns of obstructive jaundice. Will order MRCP GI will be consulted for potential ERCP (2) Cholecystitis with cholelithiasis Current Visit: Yes Status: Acute Assessment and plan: Right Upper quadrant ultrasound demonstrated cholelithiasis along with findings concerning for acute cholecystitis with positive Velasquez sign. Discussed with general surgery who recommends GI consultation for potential ERCP first before evaluating for potential cholecystectomy Qualifiers: Biliary obstruction: with biliary obstruction Qualified Code(s): K80.01 - Calculus of gallbladder with acute cholecystitis with obstruction (3) Elevated transaminase level Current Visit: Yes Status: Acute Assessment and plan: In the ER patient was found to have elevated transaminases with a total bili of 8.1 direct bili of 5.7 and direct bili of 2.4 AST of 222 ALT 392 and alk phosphatase 568. Right Upper quadrant ultrasound demonstrated cholelithiasis along with findings concerning for acute cholecystitis with positive Velasquez sign. Patient does have a history of hepatitis C Will order hepatitis panel GI consulted and appreciate recommendations (4) History of heroin use Current Visit: No Status: Acute Assessment and plan: Patient with history of 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 Currently on Suboxone - Time Spent With Patient Total time spent is greater than 50% in coordination of care (as documented) at patient's floor/unit and/or counseling patient:
[2018-05-25] MEDS ORDERED: Naloxone 0.4 MG/ML INJ IVP PRN (18:40)
[2018-05-25 21:44] LABS: Basophils % 0.4 %; Eosinophils % 0.3 %; Hematocrit 39.1 % (35.3-44.9); Hemoglobin 13.1 g/dL (11.5-15.4); Immature Granulocytes % 0.3 % (0-4); Lymphocytes # 1.7 K/mcL (0.6-4.6); Lymphocytes % 18.1 %; Mean Corpuscular HGB Conc 33.5 g/dL (31.6-35.5); Mean Corpuscular Hemoglobin 29.2 pg (28.0-33.3); Mean Corpuscular Volume 87.1 fL (83.0-100.0); Mean Platelet Volume 10.8 fL (9.4-12.4); Monocytes # 0.6 K/mcL (0.0-1.3); Monocytes % 6.1 %; Neutrophils # 6.9 K/mcL (1.6-8.9); Platelet Count 251 K/mcL (140-400); Red Blood Count 4.49 M/mcL (3.82-4.97); Red Cell Distribution Width 15.2 % (11.5-14.5); Segmented Neutrophils % 74.8 %
[2018-05-25] MEDS ORDERED: cefTRIAXone 2,000 MG in Water for inj. (sterile) 20 ML 20 ML IVP SCH (22:00)
[2018-05-25 22:04] LABS: Albumin 4.1 g/dL (3.5-5.7); Albumin/Globulin Ratio 1.2 (1.1-2.2); Bilirubin,Direct 5.2 mg/dL (0.0-0.2); Bilirubin,Indirect 2.6 mg/dL (0.0-1.2); Bilirubin,Total 7.8 mg/dL (0.3-1.0); Globulin 3.5 g/dL (2.4-3.5); Total Protein 7.6 g/dL (6.4-8.9)
[2018-05-25] MEDS: MetroNIDAZOLE 500 MG/100 ML 500 MG/100 ML BAG IVPB SCH (23:10)
--- NOTE | 2018-05-26 00:01 | Event Note ---
Date of Encounter: 05/25/18 Time of Encounter: 21:30 Received results of patient's MRCP: IMPRESSION: 1. Obstructing choledocholithiasis. Severe intrahepatic biliary ductal dilatation and dilatation of the proximal half of the common bowel duct secondary to a 1.4 cm obstructing mid common bowel duct stone. 2. Gallbladder loaded with stones most between 1 and 1.5 cm in size. Discussed case with Dr. Melo. He agreed to see patient in the morning, recommended starting the patient on cipro. We started the patient on cipro and flagyl, patient also positive for likely UTI. Also started patient on continued therapy of subutex as her home suboxone is not available. Discussed with pharmacy and 10mg dose appeared to be what she was on at home.
[2018-05-26] MEDS: *HR* Buprenorphine HCl 2 MG SUBLINGUAL TABLET SL SCH ×2 (00:09→08:51)
[2018-05-26] MEDS: Ketorolac 30 MG/ML VIAL IVP PRN ×3 (01:54→15:51)
[2018-05-26] MEDS: Ondansetron 4 MG/2 ML VIAL IVP PRN ×2 (01:55→10:50)
[2018-05-26 06:18] LABS: Basophils % 0.5 %; Eosinophils # 0.1 K/mcL (0.0-0.6); Eosinophils % 1.2 %; Hematocrit 36.4 % (35.3-44.9); Hemoglobin 11.8 g/dL (11.5-15.4); Immature Granulocytes % 0.3 % (0-4); Lymphocytes # 1.5 K/mcL (0.6-4.6); Lymphocytes % 19.3 %; Mean Corpuscular HGB Conc 32.4 g/dL (31.6-35.5); Mean Corpuscular Hemoglobin 28.4 pg (28.0-33.3); Mean Corpuscular Volume 87.5 fL (83.0-100.0); Monocytes # 0.5 K/mcL (0.0-1.3); Monocytes % 6.5 %; Neutrophils # 5.5 K/mcL (1.6-8.9); Platelet Count 220 K/mcL (140-400); Red Blood Count 4.16 M/mcL (3.82-4.97); Red Cell Distribution Width 15.3 % (11.5-14.5); Segmented Neutrophils % 72.2 %
[2018-05-26 06:37] LABS: Alanine Aminotransferase 368 Units/L (7-52); Albumin 3.5 g/dL (3.5-5.7); Albumin/Globulin Ratio 1.1 (1.1-2.2); Alkaline Phosphatase 459 Units/L (34-104); Aspartate Amino Transferase 252 Units/L (13-39); BUN/Creatinine Ratio 15 (6-26); Blood Urea Nitrogen 8 mg/dL (6-20); Calcium 8.7 mg/dL (8.6-10.3); Carbon Dioxide 28 mEq/L (23-29); Chloride 103 mEq/L (98-107); Globulin 3.1 g/dL (2.4-3.5); Glucose 85 mg/dL (70-105); Osmolality,Calculated 284 (280-300); Potassium 3.5 mEq/L (3.5-5.1); Sodium 138 mEq/L (136-145); Total Protein 6.6 g/dL (6.4-8.9); eGFR For Non-African Americans > 60 (> 60)
[2018-05-26] MEDS: MetroNIDAZOLE 500 MG/100 ML 500 MG/100 ML BAG IVPB SCH ×3 (08:51→23:47)
--- NOTE | 2018-05-26 10:57 | Gastroenterology Consult Note ---
<Wang Calzada - Last Filed: 05/26/18 10:54> Date of Encounter: 05/26/18 Time of Encounter: 10:00 - Assessment and plan (1) Choledocholithiasis Current Visit: Yes Status: Acute Assessment and plan: MRCP with obstructing choledocholithiasis severe intrahepatic biliary ductal dilation, dilation of proximal half of CBD secondary to 1.4 cm obstructing mid CBD stone. Liver ultrasound with cholelithiasis, cholecystitis, and choledocholithiasis. On admission TB 8.1, DB 5.7, AST 222, ALT 392, and alk phos 568. Today TB 8, AST 252, ALT 368, alk phos 459. Plan for ERCP. Keep NPO for procedure. (2) Hep C w/o coma, chronic Current Visit: Yes Status: Acute Assessment and plan: Hepatitis C viral load 6.2 million with genotype 3A on 11/25/2016. Check liver workup (AFP, alpha-1 antitrypsin, MI, ceruloplasmin, F actin, ferritin, fibrosis score, hepatitis C quantitative and genotype, AMA, PT/INR). Instructed patient to not share any thing that could potentially cause bleeding such as razors, nail clippers, hair clippers. Instructed patient that if they were to cut themselves they need to clean up the blood or if someone else cleans up they need to wear gloves. Instructed patient they need to use protection while having sex. (3) Cholecystitis with cholelithiasis Current Visit: Yes Status: Acute Qualifiers: Biliary obstruction: with biliary obstruction Qualified Code(s): K80.01 - Calculus of gallbladder with acute cholecystitis with obstruction - Time Spent With Patient Total time spent is greater than 50% in coordination of care (as documented) at patient's floor/unit and/or counseling patient: GI History of Present Illness - Data of Consult Patient: new to practice Consult date: 05/26/18 Requesting Physician: Geena Ramos MD - Consult Narrative Reason for consult: Obstructive jaundice History of present illness: Ms. Hoover is a 38 year old female with PMHx of hepatitis C, IVDU who presented to the ED with abdominal pain and jaundice. She reports history of IV drug use with shared needles, several tattoos, and sexual partner with hepatitis C. She denies any intranasal drug use. She 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 been clean for 2 years. On admission TB 8.1, DB 5.7, AST 222, ALT 392, and alk phos 568. MRCP with obstructing choledocholithiasis severe intrahepatic biliary ductal dilation, dilation of proximal half of CBD secondary to 1.4 cm obstructing mid CBD stone. Liver ultrasound with cholelithiasis, cholecystitis, and choledocholithiasis. Procedures: None NSAIDs: None Anticoagulation: None Past Med Surg Social Fam HX - Past Medical History Medical history: hepatitis, other Psychiatric history: anxiety, depression - Past Surgical History Surgical History: other Additional surgical history: L ovary removed Apr 2017 - Social History Smoking Status: Current every day smoker Smokeless Tobacco Status: No Alcohol use: none Drug use: opiates, marijuana - Family History Sister Adopted: No Living Status: Still Living Hx Family Cardiac Disorders: No Hx Family Respiratory Disorders: No Hx Family Cancer: No Hx Family GI Disorders: No Hx Family Endocrine Disorder: No Hx Family Neuromuscular Disorders: No Hx Family Neurologic Disorders: No Hx Family HEENT Disorders: No Hx Family Autoimmune Disorders: No - Gastrointestinal Gastrointestinal: Present: as per HPI - Constitutional Constitutional: as per HPI - EENT Eyes: as per HPI Ears: Present: as per HPI Nose, mouth and throat: Present: as per HPI - Cardiovascular Cardiovascular ROS: Present: as per HPI - Respiratory Respiratory IM: Present: as per HPI - Genitourinary Genitourinary: Absent: change in color, Urinary frequency - Neurological ROS Neurological GI: Present: as per HPI - Hematologic/Lymphatic Hematologic/Lymphatic pediatric: Present: as per HPI - Musculoskeletal Musculoskeletal ROS GI: Present: as per HPI - Integumentary Integumentary GI: Present: as per HPI - Psychiatric ROS Psychiatric GI: Present: as per HPI - Endocrine Endocrine IM: Present: as per HPI - Constitutional Vitals: Temp Pulse Resp BP Pulse Ox 98.4 F 91 15 148/80 94 05/26/18 10:34 05/26/18 10:34 05/26/18 10:34 05/26/18 10:34 05/26/18 10:34 General appearance: Present: cooperative, A&O X 3, no acute distress, answers questions appropriately - Head Head exam: Present: atraumatic, normocephalic - Eye Eye exam: Present: scleral icterus - ENT ENT exam: Present: mucous membranes dry - Neck Neck exam general surgery: Present: normal inspection, trachea midline - Respiratory Respiratory exam: Present: CTAB. Absent: rales, rhonchi - Cardiovascular Cardiovascular exam: Present: RRR, +S1, +S2 - GI/Abdominal GI/Abdominal exam: Present: soft, tenderness (RUQ), no peritoneal signs. Absent: distended, firm, guarding - Rectal Rectal exam: Present: deferred - Extremities Exam Extremities exam: Present: warm - Neurological Exam Neurological exam: Present: no focal deficits - Psychiatric Psychiatric exam: Present: normal affect, normal mood - Skin Skin exam: Present: dry, intact, warm. Absent: normal color (Jaundice) Results - Labs CBC & Chem 7: 05/26/18 05:26 05/26/18 05:26 Labs: Last Result Calcium 8.7 mg/dL (8.6-10.3) 05/26/18 05:26 Entire Visit Hgb 11.8 g/dL (11.5-15.4) 05/26/18 05:26 Hct 36.4 % (35.3-44.9) 05/26/18 05:26 Total Bilirubin 8.0 mg/dL (0.3-1.0) H 05/26/18 05:26 AST 252 Units/L (13-39) H 05/26/18 05:26 ALT 368 Units/L (7-52) H 05/26/18 05:26 Lipase 7 Units/L (11-82) L 05/25/18 11:41 - Impressions Impressions Gallbladder Ultrasound 05/25/18 14:34 IMPRESSION: Cholelithiasis along with findings concerning for acute cholecystitis with positive sonographic Velasquez's sign along with gallbladder wall thickening. Distention of common bile duct along with intrahepatic biliary ducts without definite intraluminal filling defect to the visualized common bile duct but possibly with some tapering of the duct towards intrapancreatic portion. With the clinical history of jaundice consider further evaluation with MRCP or ERCP. D/ / 05/25/2018 16:11:40 Filemon Palmer MD / [facility] Interpreting Provider: Filemon Palmer MD Abdomen MRI 05/25/18 18:30 IMPRESSION: 1. Obstructing choledocholithiasis. Severe intrahepatic biliary ductal dilatation and dilatation of the proximal half of the common bowel duct secondary to a 1.4 cm obstructing mid common bowel duct stone. 2. Gallbladder loaded with stones most between 1 and 1.5 cm in size. The findings were sent to the Radiology Results Communication Center at 8:39 pm on 05/25/2018to be communicated to a licensed caregiver. D/ / Desmond Williamson MD / Desmond Williamson MD Interpreting Provider: Desmond Williamson MD Consult Discharge Plan - Plan Referrals: Elisa Steele MD [Primary Care Provider] - <Skyalr Meloed - Last Filed: 05/26/18 19:00> Date of Encounter: 05/26/18 Time of Encounter: 17:00 - Time Spent With Patient Total time spent is greater than 50% in coordination of care (as documented) at patient's floor/unit and/or counseling patient: GI History of Present Illness - Data of Consult Requesting Physician: Geena Ramos MD - Consult Narrative History of present illness: Ms. Hoover is a 38 year old female - Constitutional Vitals: Temp Pulse Resp BP Pulse Ox 98.2 F 71 18 118/74 98 05/26/18 18:47 05/26/18 18:47 05/26/18 18:47 05/26/18 18:47 05/26/18 18:47 Results - Labs CBC & Chem 7: 05/26/18 05:26 05/26/18 05:26 Labs: Last Result Calcium 8.7 mg/dL (8.6-10.3) 05/26/18 05:26 Ferritin 95 ng/mL (10-120) 05/26/18 11:56 Entire Visit Hgb 11.8 g/dL (11.5-15.4) 05/26/18 05:26 Hct 36.4 % (35.3-44.9) 05/26/18 05:26 PT 11.5 Seconds (9.4-12.1) 05/26/18 11:56 Ferritin 95 ng/mL (10-120) 05/26/18 11:56 Total Bilirubin 8.0 mg/dL (0.3-1.0) H 05/26/18 05:26 AST 252 Units/L (13-39) H 05/26/18 05:26 ALT 368 Units/L (7-52) H 05/26/18 05:26 Lipase 7 Units/L (11-82) L 05/25/18 11:41 - ABG ABG results: PT/INR, D-dimer PT 11.5 Seconds (9.4-12.1) 05/26/18 11:56 - Impressions Impressions Abdomen MRI 05/25/18 18:30 IMPRESSION: 1. Obstructing choledocholithiasis. Severe intrahepatic biliary ductal dilatation and dilatation of the proximal half of the common bowel duct secondary to a 1.4 cm obstructing mid common bowel duct stone. 2. Gallbladder loaded with stones most between 1 and 1.5 cm in size. The findings were sent to the Radiology Results Communication Center at 8:39 pm on 05/25/2018to be communicated to a licensed caregiver. D/ / Desmond Williamson MD / Desmond Williamson MD Interpreting Provider: Desmond Williamson MD - Attending Attestation I have personally performed a face to face evaluation on this patient. I have reviewed and agree with the care plan. History and Exam by me shows: Patient seen . Admitted because of jaundice. On examination patient is deeply jaundice. Assessment: Patient with the underlying history of hepatitis C now with large gallstone and also a large CBD stone with obstructive jaundice. Recommendation : ERCP with the possible stent placement and removal of the stone
[2018-05-26 12:23] LABS: Prothrombin Time 11.5 Seconds (9.4-12.1)
--- NOTE | 2018-05-26 14:22 | Internal Med Progress Note ---
Hospitalist Progress Note - Encounter Date of Encounter: 05/26/18 Time of Encounter: 14:19 - Subjective Interval History: Pt seen and examined at bedside. Reports of right upper quadrant abd pain with radiation to the back. Denies any nausea or vomiting. Denies any dysuria or increased urinary frequency. MRCP reviewed, GI consulted, pt tentatively scheduled for ERCP later today. Ten point ROS negative except as listed above - Exam Vitals: Temp Pulse Resp BP Pulse Ox 98.7 F 73 15 143/78 99 05/26/18 14:00 05/26/18 14:00 05/26/18 14:00 05/26/18 14:00 05/26/18 14:00 Exam: General: No acute distress, AAO x 3, jaundiced HEENT: EOMI, NC/AT, scleral icterus Respiratory: Clear to auscultate bilaterally, no wheezing, no rales Cardiovascular: Regular, Rate, Rhythm, No murmurs GI: Soft, RUQ tenderness to palpation, non distended, normal bowel sounds Ext: No edema, no tenderness, positive pulses Neuro: AAO x 3, no focal deficits - Assessment and Plan (1) Cholecystitis with cholelithiasis Current Visit: Yes Status: Acute Assessment and Plan: MRCP reviewed, obstructing stone on CBD GI on board and evaluation appreciated tentatively scheduled for ERCP later today NPO at this time continue IV fluids, pain control, IV abx (2) Jaundice Current Visit: Yes Status: Acute Assessment and Plan: as listed above (3) History of heroin use Current Visit: No Status: Acute Assessment and Plan: Patient with history of 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 Currently on Suboxone (4) Elevated transaminase level Current Visit: Yes Status: Acute Assessment and Plan: Likely secondary to choledocholithiasis scheduled for ERCP later today (5) Hep C w/o coma, chronic Current Visit: Yes Status: Acute Assessment and Plan: GI on board, evaluation appreciated continue workup as per GI (6) UTI (urinary tract infection) Current Visit: Yes Status: Acute Assessment and Plan: continue IV abx f/u urine culture report DVT Prophylaxis: SCDs - Time Spent with Patient Total time spent is greater than 50% in coordination of care (as documented) at patient's floor/unit and/or counseling patient: 25 - 35 minutes (patient/RN/case management/pharmacist) Internal Medicine: Result - Labs CBC & Chem 7: 05/26/18 05:26 05/26/18 05:26 Labs: Short CBC 05/25/18 05/26/18 Range/Units 21:29 05:26 WBC 9.2 7.6 (4.3-11.1) K/mcL Hgb 13.1 11.8 (11.5-15.4) g/dL Hct 39.1 36.4 (35.3-44.9) % Plt Count 251 220 (140-400) K/mcL Neutrophils # 6.9 5.5 (1.6-8.9) K/mcL BMP 05/26/18 05:26 Sodium 138 Potassium 3.5 Chloride 103 Carbon Dioxide 28 BUN 8 Creatinine 0.54 L Glucose 85 Calcium 8.7 Liver Function 05/25/18 05/26/18 Range/Units 21:29 05:26 Total Bilirubin 7.8 H 8.0 H (0.3-1.0) mg/dL Direct Bilirubin 5.2 H (0.0-0.2) mg/dL AST 265 H 252 H (13-39) Units/L ALT 396 H 368 H (7-52) Units/L Alkaline Phosphatase 497 H 459 H (34-104) Units/L Albumin 4.1 3.5 (3.5-5.7) g/dL - ABG Interpretation ABG results: PT/INR, D-dimer PT 11.5 Seconds (9.4-12.1) 05/26/18 11:56 - Impressions Impressions Gallbladder Ultrasound 05/25/18 14:34 IMPRESSION: Cholelithiasis along with findings concerning for acute cholecystitis with positive sonographic Velasquez's sign along with gallbladder wall thickening. Distention of common bile duct along with intrahepatic biliary ducts without definite intraluminal filling defect to the visualized common bile duct but possibly with some tapering of the duct towards intrapancreatic portion. With the clinical history of jaundice consider further evaluation with MRCP or ERCP. D/ / 05/25/2018 16:11:40 Filemon Palmer MD / [facility] Interpreting Provider: Filemon Palmer MD Abdomen MRI 05/25/18 18:30 IMPRESSION: 1. Obstructing choledocholithiasis. Severe intrahepatic biliary ductal dilatation and dilatation of the proximal half of the common bowel duct secondary to a 1.4 cm obstructing mid common bowel duct stone. 2. Gallbladder loaded with stones most between 1 and 1.5 cm in size. The findings were sent to the Radiology Results Communication Center at 8:39 pm on 05/25/2018to be communicated to a licensed caregiver. D/ / Desmond Williamson MD / Desmond Williamson MD Interpreting Provider: Desmond Williamson MD Consult Discharge Plan - Plan Referrals: Elisa Steele MD [Primary Care Provider] - (1) Cholecystitis with cholelithiasis Qualifiers: Biliary obstruction: with biliary obstruction Qualified Code(s): K80.01 - Calculus of gallbladder with acute cholecystitis with obstruction (6) UTI (urinary tract infection) Qualifiers: Urinary tract infection type: site unspecified Hematuria presence: without hematuria Qualified Code(s): N39.0 - Urinary tract infection, site not specified
--- NOTE | 2018-05-26 14:48 | Anesthesia Evaluation PreOp ---
Date of Encounter: 05/26/18 Time of Encounter: 15:07 - Past History Planned Operation: ERCP Cardiac History: Denies any Significant Hx Pulmonary History: Smoker WOUND NURSE History: Other (HO HEROIN ABUSE - NON FOR 2 YEARS, ON BUPRENORPHINE) Other Medical History: Hepatic (HEP C, LFTs USUALLY NORMAL, CURRENTLY WITH OBSTRUCTIVE JAUNDICE), GERD (SEVERE) Anesthesia History: No Prior Anesthetic Complications, Past Anesthesia : No Test: Negative (05/25/18) Alcohol Use: none Drug use: opiates, marijuana Medications and Allergies Buprenorphine HCl [Subutex] 10 mg SL DAILY 05/25/18 [History] FLUoxetine HCl [PROzac] 20 mg PO DAILY 05/25/18 [History] Allergy/AdvReac Type Severity Reaction Status Date / Time No Known Allergies Allergy Verified 08/17/16 12:28 - Meds/Allergy Pre-op Review Medications Reviewed: Yes Allergies Reviewed: Yes Anesthesia Results - Labs 05/26/18 05:26 05/26/18 05:26 Laboratory Tests 05/25/18 05/26/18 11:41 05:26 Est GFR (Non-Af Amer) > 60 Calcium 8.7 Total Bilirubin 8.0 H AST 252 H ALT 368 H Alkaline Phosphatase 459 H Serum Total Protein 6.6 Albumin 3.5 Albumin/Globulin Ratio 1.1 Lipase 7 L Laboratory Tests 05/25/18 11:32 Urine Test Negative Anesthesia Exam Vital Signs/O2 Sat/Glucose, Most Recent Temp Pulse Resp BP Pulse Ox 98.7 F 73 15 143/78 99 05/26/18 14:00 05/26/18 14:00 05/26/18 14:00 05/26/18 14:00 05/26/18 14:00 Blood Glucose* 98 Weight: 79 KG - BMI 28 NPO (# of Hours): 8 - HEENT Mallampati: I Teeth: Poor dentition (MULTIPLE CARIES, BROKEN, CHIPPED) Oral Opening: Greater than 3 - Cardiac Rhythm: Regular - Pulmonary Breath Sounds: bilateral Clear Respiratory Effort: Symmetrical Anesthesia Assess/Plan ASA Score: 3 Anesthetic Plan: General Monitoring Plan: Standard Monitors Recovery Plan: PACU
[2018-05-26] MEDS ORDERED: Ondansetron 4 MG/2 ML VIAL ONE (18:32)
[2018-05-26] MEDS ORDERED: *HR* Promethazine 25 MG/ML VIAL ONE (18:32)
[2018-05-26] MEDS ORDERED: *HR* Propofol 200 MG/20 ML VIAL IVP ONE (18:41)
[2018-05-26] MEDS ORDERED: *HR* Succinylcholine 200 MG/10 ML VIAL IVP ONE (18:41)
[2018-05-26] MEDS ORDERED: *HR* FentaNYL (PF) 100 MCG/2 ML VIAL ONE (18:41)
[2018-05-26] MEDS ORDERED: Lidocaine -MPF 2% 2 ML VIAL ONE (18:41)
[2018-05-26] MEDS ORDERED: Dexamethasone 4 MG/ML VIAL ONE (19:42)
[2018-05-26] MEDS ORDERED: *HR* Promethazine 25 MG/ML VIAL IVP PRN (19:43)
[2018-05-26] MEDS ORDERED: *HR* Meperidine 25 MG/ML SYRINGE IVP PRN (19:43)
[2018-05-26] MEDS ORDERED: *HR* FentaNYL (PF) 100 MCG/2 ML VIAL IVP PRN (19:43)
[2018-05-26] MEDS ORDERED: *HR* OxyCODONE Immed Rel 5 MG TABLET PO PRN (19:43)
[2018-05-26] MEDS ORDERED: 0.9 % Sodium Chloride 500 ML IVC SCH (19:45)
[2018-05-26] MEDS ORDERED: Indomethacin 50 MG SUPP.RECT RC ONE (20:34)
--- NOTE | 2018-05-26 21:29 | Anesthesia Evaluation Post Op ---
Date of Encounter: 05/26/18 Time of Encounter: 21:27 - Vital Signs Vital Signs: Vital Signs/O2 Sat, Most Current Temp Pulse Resp BP Pulse Ox 98 F 73 12 130/69 98 05/26/18 21:20 05/26/18 21:20 05/26/18 21:20 05/26/18 21:20 05/26/18 21:20 - Lungs Lungs: Clear Ascult./Percussion - Airway Airway: Non-obstructed - Cardiovascular Regular Rate - Mental Status Mental Status: Asleep with brisk response to light stimulation - Pain Pain Scale: 0 Pain Scale used: Numeric (1 - 10) - Nausea Vomiting Nausea Vomiting: Not Present - Hydration Hydration: Ice chips - Discharge PostOp Status: Transfer Patient to floor
[2018-05-27] MEDS: Ketorolac 30 MG/ML VIAL IVP PRN ×2 (04:18→16:39)
[2018-05-27 04:51] LABS: Basophils % 0.1 %; Hematocrit 42.4 % (35.3-44.9); Hemoglobin 13.9 g/dL (11.5-15.4); Immature Granulocytes % 0.4 % (0-4); Lymphocytes # 0.8 K/mcL (0.6-4.6); Lymphocytes % 7.5 %; Mean Corpuscular HGB Conc 32.8 g/dL (31.6-35.5); Mean Corpuscular Hemoglobin 28.8 pg (28.0-33.3); Mean Platelet Volume 11.2 fL (9.4-12.4); Monocytes # 0.2 K/mcL (0.0-1.3); Monocytes % 1.5 %; Neutrophils # 10.1 K/mcL (1.6-8.9); Platelet Count 269 K/mcL (140-400); Red Blood Count 4.82 M/mcL (3.82-4.97); Red Cell Distribution Width 15.2 % (11.5-14.5); Segmented Neutrophils % 90.5 %
[2018-05-27] MEDS: Ondansetron 4 MG/2 ML VIAL IVP PRN ×3 (05:10→18:17)
[2018-05-27 05:29] LABS: Alanine Aminotransferase 461 Units/L (7-52); Albumin/Globulin Ratio 1.1 (1.1-2.2); Alkaline Phosphatase 517 Units/L (34-104); Aspartate Amino Transferase 314 Units/L (13-39); BUN/Creatinine Ratio 17 (6-26); Bilirubin,Total 8.6 mg/dL (0.3-1.0); Blood Urea Nitrogen 11 mg/dL (6-20); Calcium 9.4 mg/dL (8.6-10.3); Carbon Dioxide 21 mEq/L (23-29); Chloride 102 mEq/L (98-107); Globulin 3.6 g/dL (2.4-3.5); Glucose 159 mg/dL (70-105); Magnesium 1.9 mg/dL (1.6-2.6); Osmolality,Calculated 291 (280-300); Phosphorous 3.7 mg/dL (2.7-4.5); Potassium 4.4 mEq/L (3.5-5.1); Sodium 139 mEq/L (136-145); Total Protein 7.6 g/dL (6.4-8.9); eGFR For Non-African Americans > 60 (> 60)
[2018-05-27] MEDS ORDERED: traMADol 50 MG TABLET PO ONE (06:12)
[2018-05-27] MEDS: MetroNIDAZOLE 500 MG/100 ML 500 MG/100 ML BAG IVPB SCH ×2 (08:55→16:39)
[2018-05-27] MEDS: *HR* Buprenorphine HCl 2 MG SUBLINGUAL TABLET SL SCH (08:55)
[2018-05-27] MEDS ORDERED: OXYCODONE Oral CONC 10 MG/0.5 ML ORAL.SYG SL PRN ×2 (09:53→10:33)
[2018-05-27] MEDS ORDERED: Isovue-370 500 ML BOTTLE IVP ONE (10:12)
[2018-05-27] MEDS ORDERED: *HR* Morphine 2 MG/ML SYRINGE IVP PRN (10:13)
--- NOTE | 2018-05-27 10:30 | Internal Med Progress Note ---
Hospitalist Progress Note - Encounter Date of Encounter: 05/27/18 Time of Encounter: 09:45 - Subjective Interval History: Pt seen and examined at bedside. Sitting in bed and reports of severe abdominal pain associated with nausea. s/p ERCP on 05/26/18 with stent placement. I spoke with Dr. Melo, stat CT abd/pelvis with PO and IV contrast ordered Broadened abx coverage pain medications adjusted. Ten point ROS negative except as listed above. - Exam Vitals: Temp Pulse Resp BP Pulse Ox 98.2 F 73 15 119/67 98 05/27/18 10:10 05/27/18 10:10 05/27/18 10:10 05/27/18 10:10 05/27/18 10:10 Exam: General: No acute distress, AAO x 3, jaundiced HEENT: EOMI, NC/AT, scleral icterus Respiratory: Clear to auscultate bilaterally, no wheezing, no rales Cardiovascular: Regular, Rate, Rhythm, No murmurs GI: Soft, RUQ tenderness to palpation, non distended, normal bowel sounds Ext: No edema, no tenderness, positive pulses Neuro: AAO x 3, no focal deficits - Assessment and Plan (1) Cholecystitis with cholelithiasis Current Visit: Yes Status: Acute Assessment and Plan: MRCP reviewed, obstructing stone on CBD GI on board and evaluation appreciated s/p ERCP on 05/26/18 with stent placement will obtain CT abd/pelvis with PO and IV contrast d/c Ciprofloxacin continue Flagyl and start Zosyn continue IV fluids, pain control (2) Jaundice Current Visit: Yes Status: Acute Assessment and Plan: as listed above (3) History of heroin use Current Visit: No Status: Acute Assessment and Plan: Patient with history of 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 Currently on Suboxone (4) Elevated transaminase level Current Visit: Yes Status: Acute Assessment and Plan: Likely secondary to choledocholithiasis GI on board, evaluation appreciated (5) Hep C w/o coma, chronic Current Visit: Yes Status: Acute Assessment and Plan: GI on board, evaluation appreciated continue workup as per GI (6) UTI (urinary tract infection) Current Visit: Yes Status: Acute Assessment and Plan: continue IV abx urine culture negative thus far DVT Prophylaxis: SCDs - Time Spent with Patient Total time spent is greater than 50% in coordination of care (as documented) at patient's floor/unit and/or counseling patient: Greater than 35 minutes Plan of Care Discussed with: patient (patient/RN/[employer] consultant/pharmacist) Internal Medicine: Result - Labs CBC & Chem 7: 05/27/18 04:17 05/27/18 04:17 Labs: Short CBC 05/27/18 Range/Units 04:17 WBC 11.2 H (4.3-11.1) K/mcL Hgb 13.9 D (11.5-15.4) g/dL Hct 42.4 (35.3-44.9) % Plt Count 269 (140-400) K/mcL Neutrophils # 10.1 H (1.6-8.9) K/mcL BMP 05/27/18 04:17 Sodium 139 Potassium 4.4 D Chloride 102 Carbon Dioxide 21 L BUN 11 Creatinine 0.63 Glucose 159 H Calcium 9.4 Liver Function 05/27/18 Range/Units 04:17 Total Bilirubin 8.6 H (0.3-1.0) mg/dL AST 314 H (13-39) Units/L ALT 461 H (7-52) Units/L Alkaline Phosphatase 517 H (34-104) Units/L Albumin 4.0 (3.5-5.7) g/dL - ABG Interpretation ABG results: PT/INR, D-dimer PT 11.5 Seconds (9.4-12.1) 05/26/18 11:56 - Impressions Impressions Cath/Invasive Procedure 05/26/18 19:28 IMPRESSION: Multiple filling defects in the common duct compatible with choledocholithiasis. A plastic stent is placed in the duct. D/ / Preston Crane MD / Preston Crane MD Interpreting Provider: Preston Crane MD Consult Discharge Plan - Plan Referrals: Elisa Steele MD [Primary Care Provider] - (1) Cholecystitis with cholelithiasis Qualifiers: Biliary obstruction: with biliary obstruction Qualified Code(s): K80.01 - Calculus of gallbladder with acute cholecystitis with obstruction (6) UTI (urinary tract infection) Qualifiers: Urinary tract infection type: site unspecified Hematuria presence: without hematuria Qualified Code(s): N39.0 - Urinary tract infection, site not spe cified
[2018-05-27] MEDS: Piperacillin/Tazobactam 3.375 GM in 0.9 % Sodium Chloride Mini Bag 100 ML IVPB SCH ×2 (10:53→18:18)
[2018-05-27] MEDS ORDERED: 0.9 % Sodium Chloride 1,000 ML ONE (11:31)
[2018-05-27] MEDS: 0.9 % Sodium Chloride 1,000 ML IVC SCH ×2 (11:37→18:20)
[2018-05-27 12:39] LABS: Amylase 703 Units/L (29-103)
[2018-05-27 12:52] LABS: Lipase > 1800 Units/L (11-82)
[2018-05-27] MEDS: OXYCODONE Oral CONC 10 MG/0.5 ML ORAL.SYG SL PRN ×2 (13:14→19:43)
--- NOTE | 2018-05-27 13:59 | Gastroenterology Progress Note ---
<CalzadaWang al Nigel - Last Filed: 05/27/18 13:57> Date of Encounter: 05/27/18 Time of Encounter: 10:40 - Assessment and plan (1) Choledocholithiasis Current Visit: Yes Status: Acute Assessment and plan: ERCP completed yesterday. Severe cholangitis noted, large stone noted but was unable to be removed. Temporary stent placed. TB 8.6, AST 314, ALT 461 today. Monitor hepatic panel daily. Continue antibiotics, pain control, and IV fluids. CT A/P ordered by primary team. (2) Hep C w/o coma, chronic Current Visit: Yes Status: Acute Assessment and plan: Hepatitis C viral load 6.2 million with genotype 3A on 11/25/2016. Check liver workup (AFP, alpha-1 antitrypsin, MI, ceruloplasmin, F actin, ferritin, fibrosis score, hepatitis C quantitative and genotype, AMA, PT/INR). Instructed patient to not share any thing that could potentially cause bleeding such as razors, nail clippers, hair clippers. Instructed patient that if they were to cut themselves they need to clean up the blood or if someone else cleans up they need to wear gloves. Instructed patient they need to use protection while having sex. (3) Cholecystitis with cholelithiasis Current Visit: Yes Status: Acute Qualifiers: Biliary obstruction: with biliary obstruction Qualified Code(s): K80.01 - Calculus of gallbladder with acute cholecystitis with obstruction - Time Spent With Patient Total time spent is greater than 50% in coordination of care (as documented) at patient's floor/unit and/or counseling patient: - Subjective Interval history: ERCP completed yesterday by Dr. Melo. Patient complaining of left sided abdominal pain this AM. - Constitutional Vitals: Temp Pulse Resp BP Pulse Ox 98.4 F 79 15 127/76 99 05/27/18 13:51 05/27/18 13:51 05/27/18 13:51 05/27/18 13:51 05/27/18 13:51 General appearance: Present: cooperative, A&O X 3, no acute distress, answers questions appropriately - Head Head exam: Present: atraumatic, normocephalic - Eye Eye exam: Present: normal appearance, sclera anicteric - ENT ENT exam: Present: mucous membranes moist - Neck Neck exam general surgery: Present: normal inspection, trachea midline - Respiratory Respiratory exam: Present: CTAB. Absent: rales, rhonchi - Cardiovascular Cardiovascular exam: Present: RRR, +S1, +S2 - GI/Abdominal GI/Abdominal exam: Present: soft, tenderness (LUQ and LLQ pain with palpation, mild RUQ tenderness), no peritoneal signs. Absent: distended, firm, guarding - Rectal Rectal exam: Present: deferred - Extremities Exam Extremities exam: Present: warm - Neurological Exam Neurological exam: Present: no focal deficits - Psychiatric Psychiatric exam: Present: normal affect, normal mood - Skin Skin exam: Present: dry, intact, normal color, warm Results - Labs CBC & Chem 7: 05/27/18 04:17 05/27/18 04:17 Labs: Last Result Calcium 9.4 mg/dL (8.6-10.3) 05/27/18 04:17 Ferritin 95 ng/mL (10-120) 05/26/18 11:56 Entire Visit Hgb 13.9 g/dL (11.5-15.4) D 05/27/18 04:17 Hct 42.4 % (35.3-44.9) 05/27/18 04:17 PT 11.5 Seconds (9.4-12.1) 05/26/18 11:56 Ferritin 95 ng/mL (10-120) 05/26/18 11:56 Total Bilirubin 8.6 mg/dL (0.3-1.0) H 05/27/18 04:17 AST 314 Units/L (13-39) H 05/27/18 04:17 ALT 461 Units/L (7-52) H 05/27/18 04:17 Amylase 703 Units/L (29-103) H 05/27/18 04:17 Lipase > 1800 Units/L (11-82) H 05/27/18 04:17 - ABG ABG results: PT/INR, D-dimer PT 11.5 Seconds (9.4-12.1) 05/26/18 11:56 - Impressions Impressions Cath/Invasive Procedure 05/26/18 19:28 IMPRESSION: Multiple filling defects in the common duct compatible with choledocholithiasis. A plastic stent is placed in the duct. D/ / Preston Crane MD / Preston Crane MD Interpreting Provider: Preston Crane MD Abdomen/Pelvis CT 05/27/18 12:30 IMPRESSION: 1. Interval placement of a common bile duct stent with decreasing biliary dilation. 2. Findings of acute pancreatitis with large amounts of new retroperitoneal/peripancreatic free fluid and moderate amount of ascites in the abdomen and pelvis. 3. Cholelithiasis with gallbladder filled with stones. Pericholecystic fluid is nonspecific given the acute pancreatitis. D/ / 05/27/2018 13:17:45 Fausto Bedoya MD / merced Interpreting Provider: Fausto Bedoya MD Consult Discharge Plan - Plan Referrals: Elisa Steele MD [Primary Care Provider] - <Mahad Melo - Last Filed: 05/27/18 17:37> Date of Encounter: 05/27/18 Time of Encounter: 10:00 - Time Spent With Patient Total time spent is greater than 50% in coordination of care (as documented) at patient's floor/unit and/or counseling patient: - Constitutional Vitals: Temp Pulse Resp BP Pulse Ox 98.4 F 79 15 127/76 99 05/27/18 13:51 05/27/18 13:51 05/27/18 13:51 05/27/18 13:51 05/27/18 13:51 Results - Labs CBC & Chem 7: 05/27/18 04:17 05/27/18 04:17 Labs: Last Result Calcium 9.4 mg/dL (8.6-10.3) 05/27/18 04:17 Ferritin 95 ng/mL (10-120) 05/26/18 11:56 Entire Visit Hgb 13.9 g/dL (11.5-15.4) D 05/27/18 04:17 Hct 42.4 % (35.3-44.9) 05/27/18 04:17 PT 11.5 Seconds (9.4-12.1) 05/26/18 11:56 Ferritin 95 ng/mL (10-120) 05/26/18 11:56 Total Bilirubin 8.6 mg/dL (0.3-1.0) H 05/27/18 04:17 AST 314 Units/L (13-39) H 05/27/18 04:17 ALT 461 Units/L (7-52) H 05/27/18 04:17 Amylase 703 Units/L (29-103) H 05/27/18 04:17 Lipase > 1800 Units/L (11-82) H 05/27/18 04:17 - ABG ABG results: PT/INR, D-dimer PT 11.5 Seconds (9.4-12.1) 05/26/18 11:56 - Impressions Impressions Cath/Invasive Procedure 05/26/18 19:28 IMPRESSION: Multiple filling defects in the common duct compatible with choledocholithiasis. A plastic stent is placed in the duct. D/ / Preston Crane MD / Preston Crane MD Interpreting Provider: Preston Crane MD Abdomen/Pelvis CT 05/27/18 12:30 IMPRESSION: 1. Interval placement of a common bile duct stent with decreasing biliary dilation. 2. Findings of acute pancreatitis with large amounts of new retroperitoneal/peripancreatic free fluid and moderate amount of ascites in the abdomen and pelvis. 3. Cholelithiasis with gallbladder filled with stones. Pericholecystic fluid is nonspecific given the acute pancreatitis. D/ / 05/27/2018 13:17:45 Fausto Bedoya MD / merced Interpreting Provider: Fausto Bedoya MD - Attending Attestation I have personally performed a face to face evaluation on this patient. I have reviewed and agree with the care plan. History and Exam by me shows: Patient seen complaining of diffuse upper abdominal pain and also not passing any flatus. On examination: Abdomen is not distended but does has diffuse tenderness. Assessment: Patient with large CBD stone with the obstructive jaundice status post ERCP with stent placement and also finding of severe cholangitis now with post-ERCP pancreatitis. Recommendation: IV fluid nothing by mouth, CT of the abdomen, changing antibiotics to Zosyn,. Pain control.
[2018-05-27] MEDS ORDERED: Triamcinolone Acet Dentl Paste 5 GM TUBE TP PRN (15:17)
[2018-05-28] MEDS: Ketorolac 30 MG/ML VIAL IVP PRN ×2 (00:36→08:41)
[2018-05-28] MEDS: Piperacillin/Tazobactam 3.375 GM in 0.9 % Sodium Chloride Mini Bag 100 ML IVPB SCH ×3 (01:47→17:34)
[2018-05-28] MEDS: 0.9 % Sodium Chloride 1,000 ML IVC SCH ×3 (01:47→22:35)
[2018-05-28] MEDS: OXYCODONE Oral CONC 10 MG/0.5 ML ORAL.SYG SL PRN ×3 (04:21→19:10)
[2018-05-28 06:11] LABS: Basophils % 0.2 %; Eosinophils # 0.1 K/mcL (0.0-0.6); Hematocrit 34.6 % (35.3-44.9); Immature Granulocytes % 0.2 % (0-4); Lymphocytes # 1.9 K/mcL (0.6-4.6); Lymphocytes % 19.6 %; Mean Corpuscular HGB Conc 32.7 g/dL (31.6-35.5); Mean Corpuscular Volume 88.9 fL (83.0-100.0); Mean Platelet Volume 10.9 fL (9.4-12.4); Monocytes # 0.4 K/mcL (0.0-1.3); Monocytes % 4.4 %; Neutrophils # 7.4 K/mcL (1.6-8.9); Platelet Count 228 K/mcL (140-400); Red Blood Count 3.89 M/mcL (3.82-4.97); Red Cell Distribution Width 15.3 % (11.5-14.5); Segmented Neutrophils % 74.6 %
[2018-05-28 06:12] LABS: Hemoglobin 11.3 g/dL (11.5-15.4)
[2018-05-28 06:30] LABS: Alanine Aminotransferase 322 Units/L (7-52); Albumin 3.1 g/dL (3.5-5.7); Albumin/Globulin Ratio 1.1 (1.1-2.2); Alkaline Phosphatase 336 Units/L (34-104); Aspartate Amino Transferase 188 Units/L (13-39); BUN/Creatinine Ratio 17 (6-26); Bilirubin,Total 2.9 mg/dL (0.3-1.0); Blood Urea Nitrogen 8 mg/dL (6-20); Calcium 7.8 mg/dL (8.6-10.3); Carbon Dioxide 25 mEq/L (23-29); Chloride 108 mEq/L (98-107); Globulin 2.8 g/dL (2.4-3.5); Glucose 97 mg/dL (70-105); Magnesium 1.6 mg/dL (1.6-2.6); Osmolality,Calculated 288 (280-300); Phosphorous 2.6 mg/dL (2.7-4.5); Potassium 3.4 mEq/L (3.5-5.1); Sodium 140 mEq/L (136-145); Total Protein 5.9 g/dL (6.4-8.9); eGFR For Non-African Americans > 60 (> 60)
[2018-05-28] MEDS ORDERED: Potassium Chloride 20 MEQ, Lidocaine 1% 2 ML in D5% in Water 250 ML IVPB ONE (07:58)
[2018-05-28] MEDS: *HR* Buprenorphine HCl 2 MG SUBLINGUAL TABLET SL SCH (08:26)
--- NOTE | 2018-05-28 12:48 | Internal Med Progress Note ---
Hospitalist Progress Note - Encounter Date of Encounter: 05/28/18 Time of Encounter: 12:09 - Subjective Interval History: Pt seen and examined with RN present at bedside. Pt resting in bed and reports of severe abdominal pain that is not controlled with current pain medications. Pt does not clinically appear to be in any painful distress and reports of being hungry, and requesting initiation of diet. She denies any nausea or vomiting at this time. Pt is noted to be on Subutex which is likely inhibiting the efficacy of opioid medications. No overnight events reported. Ten point ROS negative except as listed above - Exam Vitals: Temp Pulse Resp BP Pulse Ox 98.2 F 84 18 118/74 97 05/28/18 11:08 05/28/18 11:08 05/28/18 11:08 05/28/18 11:08 05/28/18 11:08 Exam: General: No acute distress, AAO x 3 HEENT: EOMI, NC/AT, scleral icterus Respiratory: Clear to auscultate bilaterally, no wheezing, no rales Cardiovascular: Regular, Rate, Rhythm, No murmurs GI: Soft, diffuse abd tenderness to palpation, non distended, normal bowel sounds Ext: No edema, no tenderness, positive pulses Neuro: AAO x 3, no focal deficits - Assessment and Plan (1) Cholecystitis with cholelithiasis Current Visit: Yes Status: Acute Assessment and Plan: MRCP reviewed, obstructing stone on CBD GI on board and evaluation appreciated s/p ERCP on 05/26/[address] abd/pelvis reviewed, findings consistent with acute pancreatitis continue Zosyn continue IV fluids, pain control extensive counseling provided in regards to opiod use and associated risks will initiate PO intake as per GI (2) Jaundice Current Visit: Yes Status: Acute Assessment and Plan: as listed above (3) History of heroin use Current Visit: No Status: Chronic Assessment and Plan: Patient with history of 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 Currently on Subutex (4) Elevated transaminase level Current Visit: Yes Status: Acute Assessment and Plan: Likely secondary to choledocholithiasis GI on board, evaluation appreciated improving (5) Hep C w/o coma, chronic Current Visit: Yes Status: Chronic Assessment and Plan: GI on board, evaluation appreciated continue workup as per GI (6) UTI (urinary tract infection) Current Visit: Yes Status: Acute Assessment and Plan: continue IV abx urine culture reported no growth will treat for a total of 5 days DVT Prophylaxis: SCDs - Time Spent with Patient Total time spent is greater than 50% in coordination of care (as documented) at patient's floor/unit and/or counseling patient: 25 - 35 minutes Plan of Care Discussed with: patient (patient/RN/pharmacist/technical healthcare consultant/case management) Internal Medicine: Result - Labs CBC & Chem 7: 05/28/18 05:34 05/28/18 05:34 Labs: Short CBC 05/28/18 Range/Units 05:34 WBC 9.9 (4.3-11.1) K/mcL Hgb 11.3 L D (11.5-15.4) g/dL Hct 34.6 L (35.3-44.9) % Plt Count 228 (140-400) K/mcL Neutrophils # 7.4 (1.6-8.9) K/mcL BMP 05/28/18 05:34 Sodium 140 Potassium 3.4 L Chloride 108 H Carbon Dioxide 25 BUN 8 Creatinine 0.46 L Glucose 97 Calcium 7.8 L Liver Function 05/28/18 Range/Units 05:34 Total Bilirubin 2.9 H (0.3-1.0) mg/dL AST 188 H (13-39) Units/L ALT 322 H (7-52) Units/L Alkaline Phosphatase 336 H (34-104) Units/L Albumin 3.1 L (3.5-5.7) g/dL - ABG Interpretation ABG results: PT/INR, D-dimer PT 11.5 Seconds (9.4-12.1) 05/26/18 11:56 - Impressions Impressions Abdomen/Pelvis CT 05/27/18 12:30 IMPRESSION: 1. Interval placement of a common bile duct stent with decreasing biliary dilation. 2. Findings of acute pancreatitis with large amounts of new retroperitoneal/peripancreatic free fluid and moderate amount of ascites in the abdomen and pelvis. 3. Cholelithiasis with gallbladder filled with stones. Pericholecystic fluid is nonspecific given the acute pancreatitis. D/ / 05/27/2018 13:17:45 Fausto Bedoya MD / merced Interpreting Provider: Fausto Bedoya MD Consult Discharge Plan - Plan Referrals: Elisa Steele MD [Primary Care Provider] - (1) Cholecystitis with cholelithiasis Qualifiers: Biliary obstruction: with biliary obstruction Qualified Code(s): K80.01 - Calculus of gallbladder with acute cholecystitis with obstruction (6) UTI (urinary tract infection) Qualifiers: Urinary tract infection type: site unspecified Hematuria presence: without hematuria Qualified Code(s): N39.0 - Urinary tract infection, site not specified
[2018-05-28 13:21] LABS: AFP Tumor Marker Non-Pregnant 2 ng/mL (0-9); Myeloperoxidase Ab 0 AU/mL (0-19); Serine Protease-3 Antibody 1 AU/mL (0-19)
[2018-05-28] MEDS: Ketorolac 30 MG/ML VIAL IVP SCH ×2 (17:33→23:44)
[2018-05-28] MEDS: Ondansetron 4 MG/2 ML VIAL IVP PRN (19:11)
[2018-05-29] MEDS: Piperacillin/Tazobactam 3.375 GM in 0.9 % Sodium Chloride Mini Bag 100 ML IVPB SCH ×3 (02:17→17:46)
[2018-05-29] MEDS: OXYCODONE Oral CONC 10 MG/0.5 ML ORAL.SYG SL PRN ×3 (02:28→23:49)
[2018-05-29] MEDS: Ketorolac 30 MG/ML VIAL IVP SCH ×4 (05:47→23:07)
[2018-05-29] MEDS: 0.9 % Sodium Chloride 1,000 ML IVC SCH ×4 (05:47→19:41)
[2018-05-29 08:57] LABS: Basophils % 0.4 %; Eosinophils # 0.1 K/mcL (0.0-0.6); Eosinophils % 1.1 %; Hematocrit 31.5 % (35.3-44.9); Hemoglobin 10.4 g/dL (11.5-15.4); Immature Granulocytes % 0.2 % (0-4); Lymphocytes % 23.6 %; Mean Corpuscular Hemoglobin 29.8 pg (28.0-33.3); Mean Corpuscular Volume 90.3 fL (83.0-100.0); Mean Platelet Volume 10.5 fL (9.4-12.4); Monocytes # 0.4 K/mcL (0.0-1.3); Monocytes % 5.2 %; Neutrophils # 5.8 K/mcL (1.6-8.9); Platelet Count 222 K/mcL (140-400); Red Blood Count 3.49 M/mcL (3.82-4.97); Red Cell Distribution Width 14.7 % (11.5-14.5); Segmented Neutrophils % 69.5 %
[2018-05-29 09:16] LABS: Alanine Aminotransferase 214 Units/L (7-52); Albumin/Globulin Ratio 1.1 (1.1-2.2); Alkaline Phosphatase 268 Units/L (34-104); Aspartate Amino Transferase 86 Units/L (13-39); Bilirubin,Total 2.1 mg/dL (0.3-1.0); Blood Urea Nitrogen 5 mg/dL (6-20); Calcium 7.9 mg/dL (8.6-10.3); Carbon Dioxide 24 mEq/L (23-29); Chloride 107 mEq/L (98-107); Globulin 2.7 g/dL (2.4-3.5); Glucose 74 mg/dL (70-105); Magnesium 1.8 mg/dL (1.6-2.6); Osmolality,Calculated 282 (280-300); Phosphorous 2.8 mg/dL (2.7-4.5); Potassium 3.4 mEq/L (3.5-5.1); Sodium 138 mEq/L (136-145); Total Protein 5.7 g/dL (6.4-8.9)
[2018-05-29] MEDS: *HR* Buprenorphine HCl 2 MG SUBLINGUAL TABLET SL SCH (09:21)
[2018-05-29 09:30] LABS: BUN/Creatinine Ratio 15 (6-26); eGFR For Non-African Americans > 60 (> 60)
[2018-05-29 10:14] LABS: HCV Quant Interpretation DETECTED (Not Detected); HCV Quant Log <1.00 log IU/mL
[2018-05-29 10:44] LABS: F-Actin (sm muscle) Ab IgG 13 Units (0-19)
[2018-05-29 11:18] LABS: ANA IgG by ELISA NONE DETECTED (None Detected)
--- NOTE | 2018-05-29 14:15 | Internal Med Progress Note ---
Hospitalist Progress Note - Encounter Date of Encounter: 05/29/18 Time of Encounter: 13:32 - Subjective Interval History: Pt seen and examined at bedside. Resting in bed and reports of feeling significantly better compared to previous day. Pain better controlled. States she feels hungry and requests to initiate diet. Denies any nausea or vomiting at this time. Ten point ROS negative except as listed above. No overnight events were reported - Exam Vitals: Temp Pulse Resp BP Pulse Ox 98.8 F 84 14 133/84 97 05/29/18 13:47 05/29/18 13:47 05/29/18 13:47 05/29/18 13:47 05/29/18 13:47 Exam: General: No acute distress, AAO x 3 HEENT: EOMI, NC/AT, no scleral icterus Respiratory: Clear to auscultate bilaterally, no wheezing, no rales Cardiovascular: Regular, Rate, Rhythm, No murmurs GI: Soft,nontender, non distended, normal bowel sounds Ext: No edema, no tenderness, positive pulses Neuro: AAO x 3, no focal deficits - Assessment and Plan (1) Cholecystitis with cholelithiasis Current Visit: Yes Status: Acute Assessment and Plan: MRCP reviewed, obstructing stone on CBD GI on board and evaluation appreciated s/p ERCP on 05/26/[address] abd/pelvis reviewed, findings consistent with acute pancreatitis continue Zosyn continue IV fluids, pain control will start clear liquid diet (2) Jaundice Current Visit: Yes Status: Resolved Assessment and Plan: as listed above (3) History of heroin use Current Visit: No Status: Chronic Assessment and Plan: Patient with history of 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 Currently on Subutex (4) Elevated transaminase level Current Visit: Yes Status: Acute Assessment and Plan: Likely secondary to choledocholithiasis GI on board, evaluation appreciated improving (5) Hep C w/o coma, chronic Current Visit: Yes Status: Chronic Assessment and Plan: GI on board, evaluation appreciated workup as per GI (6) UTI (urinary tract infection) Current Visit: Yes Status: Acute Assessment and Plan: continue IV abx urine culture reported no growth will treat for a total of 5 days DVT Prophylaxis: SCDs pt encouraged to get out of bed to chair and increase activity as tolerated - Time Spent with Patient Total time spent is greater than 50% in coordination of care (as documented) at patient's floor/unit and/or counseling patient: 25 - 35 minutes Plan of Care Discussed with: patient Internal Medicine: Result - Labs CBC & Chem 7: 05/29/18 08:46 05/29/18 08:46 Labs: Short CBC 05/29/18 Range/Units 08:46 WBC 8.3 (4.3-11.1) K/mcL Hgb 10.4 L (11.5-15.4) g/dL Hct 31.5 L (35.3-44.9) % Plt Count 222 (140-400) K/mcL Neutrophils # 5.8 (1.6-8.9) K/mcL BMP 05/29/18 08:46 Sodium 138 Potassium 3.4 L Chloride 107 Carbon Dioxide 24 BUN 5 L Creatinine 0.33 L Glucose 74 Calcium 7.9 L Liver Function 05/29/18 Range/Units 08:46 Total Bilirubin 2.1 H (0.3-1.0) mg/dL AST 86 H (13-39) Units/L ALT 214 H (7-52) Units/L Alkaline Phosphatase 268 H (34-104) Units/L Albumin 3.0 L (3.5-5.7) g/dL - ABG Interpretation ABG results: PT/INR, D-dimer PT 11.5 Seconds (9.4-12.1) 05/26/18 11:56 Consult Discharge Plan - Plan Referrals: Elisa Steele MD [Primary Care Provider] - (1) Cholecystitis with cholelithiasis Qualifiers: Biliary obstruction: with biliary obstruction Qualified Code(s): K80.01 - Calculus of gallbladder with acute cholecystitis with obstruction (6) UTI (urinary tract infection) Qualifiers: Urinary tract infection type: site unspecified Hematuria presence: without hematuria Qualified Code(s): N39.0 - Urinary tract infection, site not specified
[2018-05-30] MEDS: Piperacillin/Tazobactam 3.375 GM in 0.9 % Sodium Chloride Mini Bag 100 ML IVPB SCH ×3 (02:32→18:17)
[2018-05-30] MEDS: 0.9 % Sodium Chloride 1,000 ML IVC SCH ×4 (02:32→22:57)
[2018-05-30] MEDS: Ketorolac 30 MG/ML VIAL IVP SCH ×4 (05:16→22:56)
[2018-05-30 06:43] LABS: Basophils % 0.5 %; Eosinophils # 0.1 K/mcL (0.0-0.6); Eosinophils % 1.6 %; Hemoglobin 9.3 g/dL (11.5-15.4); Immature Granulocytes % 0.2 % (0-4); Lymphocytes # 1.6 K/mcL (0.6-4.6); Lymphocytes % 19.5 %; Mean Corpuscular HGB Conc 32.1 g/dL (31.6-35.5); Mean Corpuscular Hemoglobin 28.9 pg (28.0-33.3); Mean Corpuscular Volume 90.1 fL (83.0-100.0); Mean Platelet Volume 11.2 fL (9.4-12.4); Monocytes # 0.4 K/mcL (0.0-1.3); Monocytes % 5.3 %; Platelet Count 222 K/mcL (140-400); Red Blood Count 3.22 M/mcL (3.82-4.97); Red Cell Distribution Width 14.4 % (11.5-14.5); Segmented Neutrophils % 72.9 %
[2018-05-30 07:02] LABS: Alanine Aminotransferase 157 Units/L (7-52); Albumin 2.9 g/dL (3.5-5.7); Albumin/Globulin Ratio 1.1 (1.1-2.2); Alkaline Phosphatase 231 Units/L (34-104); Aspartate Amino Transferase 44 Units/L (13-39); BUN/Creatinine Ratio 9 (6-26); Bilirubin,Total 1.9 mg/dL (0.3-1.0); Blood Urea Nitrogen 3 mg/dL (6-20); Carbon Dioxide 27 mEq/L (23-29); Chloride 107 mEq/L (98-107); Globulin 2.7 g/dL (2.4-3.5); Glucose 103 mg/dL (70-105); Magnesium 1.7 mg/dL (1.6-2.6); Osmolality,Calculated 285 (280-300); Phosphorous 2.5 mg/dL (2.7-4.5); Potassium 3.6 mEq/L (3.5-5.1); Sodium 139 mEq/L (136-145); Total Protein 5.6 g/dL (6.4-8.9); eGFR For Non-African Americans > 60 (> 60)
[2018-05-30] MEDS: *HR* Buprenorphine HCl 2 MG SUBLINGUAL TABLET SL SCH (09:41)
[2018-05-30] MEDS: OXYCODONE Oral CONC 10 MG/0.5 ML ORAL.SYG SL PRN ×2 (10:50→16:42)
--- NOTE | 2018-05-30 13:34 | Internal Med Progress Note ---
Hospitalist Progress Note - Encounter Date of Encounter: 05/30/18 Time of Encounter: 12:20 - Subjective Interval History: Pt seen and examined at bedside. Pain improving, reports of having a bowel movement. Tolerating clear liquid diet well. Will advance to full diet tonight. Ten point ROS negative except as listed above No overnight events reported. - Exam Vitals: Temp Pulse Resp BP Pulse Ox 98.5 F 70 14 130/80 99 05/30/18 11:30 05/30/18 11:30 05/30/18 11:30 05/30/18 11:30 05/30/18 11:30 Exam: General: No acute distress, AAO x 3 HEENT: EOMI, NC/AT, no scleral icterus Respiratory: Clear to auscultate bilaterally, no wheezing, no rales Cardiovascular: Regular, Rate, Rhythm, No murmurs GI: Soft,nontender, non distended, normal bowel sounds Ext: No edema, no tenderness, positive pulses Neuro: AAO x 3, no focal deficits - Assessment and Plan (1) Cholecystitis with cholelithiasis Current Visit: Yes Status: Acute Assessment and Plan: MRCP reviewed, obstructing stone on CBD GI on board and evaluation appreciated s/p ERCP on 05/26/[address] abd/pelvis reviewed, findings consistent with acute pancreatitis continue Zosyn continue IV fluids, pain control will advance to full liquid diet if continues to improve, tentative d/c in am (2) Jaundice Current Visit: Yes Status: Resolved Assessment and Plan: as listed above (3) History of heroin use Current Visit: No Status: Chronic Assessment and Plan: Patient with history of 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 Currently on Subutex (4) Elevated transaminase level Current Visit: Yes Status: Acute Assessment and Plan: Likely secondary to choledocholithiasis GI on board, evaluation appreciated improving (5) Hep C w/o coma, chronic Current Visit: Yes Status: Chronic Assessment and Plan: GI on board, evaluation appreciated workup as per GI (6) UTI (urinary tract infection) Current Visit: Yes Status: Acute Assessment and Plan: continue IV abx urine culture reported no growth will treat for a total of 5 days DVT Prophylaxis: SCDs pt encouraged to get out of bed to chair and increase activity as tolerated - Time Spent with Patient Total time spent is greater than 50% in coordination of care (as documented) at patient's floor/unit and/or counseling patient: Plan of Care Discussed with: patient (patient/RN) Internal Medicine: Result - Labs CBC & Chem 7: 05/30/18 05:26 05/30/18 05:26 Labs: Short CBC 05/30/18 Range/Units 05:26 WBC 8.2 (4.3-11.1) K/mcL Hgb 9.3 L (11.5-15.4) g/dL Hct 29.0 L (35.3-44.9) % Plt Count 222 (140-400) K/mcL Neutrophils # 6.0 (1.6-8.9) K/mcL BMP 05/30/18 05:26 Sodium 139 Potassium 3.6 Chloride 107 Carbon Dioxide 27 BUN 3 L Creatinine 0.34 L Glucose 103 Calcium 8.0 L Liver Function 05/30/18 Range/Units 05:26 Total Bilirubin 1.9 H (0.3-1.0) mg/dL AST 44 H (13-39) Units/L ALT 157 H (7-52) Units/L Alkaline Phosphatase 231 H (34-104) Units/L Albumin 2.9 L (3.5-5.7) g/dL - ABG Interpretation ABG results: PT/INR, D-dimer PT 11.5 Seconds (9.4-12.1) 05/26/18 11:56 Consult Discharge Plan - Plan Referrals: Elisa Steele MD [Primary Care Provider] - (1) Cholecystitis with cholelithiasis Qualifiers: Biliary obstruction: with biliary obstruction Qualified Code(s): K80.01 - Calculus of gallbladder with acute cholecystitis with obstruction (6) UTI (urinary tract infection) Qualifiers: Urinary tract infection type: site unspecified Hematuria presence: without hematuria Qualified Code(s): N39.0 - Urinary tract infection, site not specified
[2018-05-31] MEDS: Piperacillin/Tazobactam 3.375 GM in 0.9 % Sodium Chloride Mini Bag 100 ML IVPB SCH ×3 (02:51→17:55)
[2018-05-31] MEDS: Ketorolac 30 MG/ML VIAL IVP SCH ×3 (04:31→17:54)
[2018-05-31] MEDS: 0.9 % Sodium Chloride 1,000 ML IVC SCH ×3 (04:33→17:53)
[2018-05-31 06:39] LABS: Basophils % 0.4 %; Eosinophils # 0.2 K/mcL (0.0-0.6); Eosinophils % 2.1 %; Hematocrit 29.4 % (35.3-44.9); Hemoglobin 9.6 g/dL (11.5-15.4); Immature Granulocytes % 0.3 % (0-4); Lymphocytes # 1.9 K/mcL (0.6-4.6); Lymphocytes % 26.7 %; Mean Corpuscular HGB Conc 32.7 g/dL (31.6-35.5); Mean Corpuscular Hemoglobin 29.5 pg (28.0-33.3); Mean Corpuscular Volume 90.5 fL (83.0-100.0); Mean Platelet Volume 11.6 fL (9.4-12.4); Monocytes # 0.4 K/mcL (0.0-1.3); Monocytes % 5.7 %; Neutrophils # 4.7 K/mcL (1.6-8.9); Platelet Count 249 K/mcL (140-400); Red Blood Count 3.25 M/mcL (3.82-4.97); Red Cell Distribution Width 14.3 % (11.5-14.5); Segmented Neutrophils % 64.8 %
[2018-05-31 06:55] LABS: Alanine Aminotransferase 119 Units/L (7-52); Albumin 3.1 g/dL (3.5-5.7); Albumin/Globulin Ratio 1.1 (1.1-2.2); Alkaline Phosphatase 213 Units/L (34-104); Aspartate Amino Transferase 27 Units/L (13-39); BUN/Creatinine Ratio 6 (6-26); Bilirubin,Total 1.7 mg/dL (0.3-1.0); Blood Urea Nitrogen 2 mg/dL (6-20); Calcium 8.5 mg/dL (8.6-10.3); Carbon Dioxide 26 mEq/L (23-29); Chloride 108 mEq/L (98-107); Globulin 2.7 g/dL (2.4-3.5); Glucose 107 mg/dL (70-105); Magnesium 1.6 mg/dL (1.6-2.6); Osmolality,Calculated 291 (280-300); Phosphorous 2.8 mg/dL (2.7-4.5); Potassium 3.2 mEq/L (3.5-5.1); Sodium 142 mEq/L (136-145); Total Protein 5.8 g/dL (6.4-8.9); eGFR For Non-African Americans > 60 (> 60)
[2018-05-31] MEDS ORDERED: Potassium Chloride 40 MEQ, Lidocaine 1% 2 ML in D5% in Water 500 ML IVPB ONE (08:15)
[2018-05-31] MEDS ORDERED: Nitroglycerin 0.4 MG TAB.SUBL SL PRN (09:04)
[2018-05-31] MEDS: *HR* Buprenorphine HCl 2 MG SUBLINGUAL TABLET SL SCH (09:28)
[2018-05-31] MEDS: Ondansetron 4 MG/2 ML VIAL IVP PRN ×2 (09:36→17:54)
--- NOTE | 2018-05-31 10:09 | General Surgery Consult Note ---
Date of Encounter: 05/31/18 Time of Encounter: 09:30 Assessment and Plan (1) Cholecystitis with cholelithiasis Current Visit: Yes Status: Acute Patient will need cholecystectomy after cardiac clearance (plan for surgery in the next 24-48 hours) NPO after midnight for possible surgery tomorrow 06/01/18 IV antibiotics- continue Zosyn IV fluids- rate per hospitalist Supportive care and pain control GI and DVT prophylaxis Ambulate hallways TID Incentive spirometer every 1 hour while awake Consent for cholecystectomy Qualifiers: Biliary obstruction: with biliary obstruction Qualified Code(s): K80.01 - Calculus of gallbladder with acute cholecystitis with obstruction (2) Nausea & vomiting Current Visit: Yes Status: Acute IV fluids Supportive care Antiemetics as needed Qualifiers: Vomiting type: unspecified Vomiting Intractability: non-intractable Qualified Code(s): R11.2 - Nausea with vomiting, unspecified (3) Pancreatitis, gallstone Current Visit: Yes Status: Acute Central epigastric pain resolving check lipase (4) New onset atrial fibrillation Current Visit: Yes Status: Acute Management per hospitalist Requested cardiology evauation for new onset atrial fibrillation- clearance for surgical intervention (5) Hep C w/o coma, chronic Current Visit: Yes Status: Chronic (6) DVT prophylaxis Current Visit: Yes Status: Acute EPCDs to bilateral lower extremities for DVT prophylaxis Ambulate hallways TID with assistance History of Present Illness Consult date: 05/31/18 Reason for consult: gallstones (with acute cholecystitis) Requesting physician: Geena Ramos History of present illness: Ms. Hoover is a 38 year old female with a past medical history significant for Hepatitis C, IBS, Anxiety and depression. She presented to the hospital with a 1 week history of abdominal pain. The pain was located in the RUQ and epigastric region. She states that the pain was severe and she has never experienced anything like it in the past. She states that the pain radiated into her back and shoulders. She states that the pain has significantly improved after ERCP and stent placement. She reports associated nausea and vomiting which initially improved after ERCP but returned last evening. She is having dry heaves this morning. She denies any hematemesis or coffee ground emesis. She has had 2 bowel movements in the past 2 days which were described as being loose. Denies any melena or hematochezia. She admits to having increased belching and bloating. Reports symptoms of heartburn which are chronic for her. She admits to having chest pressure and shortness of breath today. She has had a EKG which shows new onset of atrial fibrillation. She admits to having lower extremity swelling but denies any leg pain. We have been asked to see and evaluate the patient for recommendations regarding acute cholecystitis. Past Med Surg Social Fam HX - Past Medical History Source: patient Medical history: GERD, hepatitis (C), other Psychiatric history: anxiety, depression - Past Surgical History Surgical History: other Additional surgical history: L ovary removed Apr 2017 - Social History Smoking Status: Current every day smoker Smokeless Tobacco Status: No Alcohol use: none Drug use: opiates, marijuana, IV Drug Use (last use was June 08, 2016 per patient) Current living situation: Home - Independent Activity Level: Independent ambulation - Family History Mother Adopted: No Living Status: Still Living Hx Family Cardiac Disorders: Yes (MD X 2) Hx Family Respiratory Disorders: No Hx Family Cancer: No Hx Family GI Disorders: No Hx Family Endocrine Disorder: No Hx Family Neuromuscular Disorders: No Hx Family Neurologic Disorders: No Hx Family HEENT Disorders: No Hx Family Autoimmune Disorders: No Father History Unknown: Yes Living Status: Still Living Medications and Allergies Buprenorphine HCl [Subutex] 10 mg SL DAILY 05/25/18 [History] FLUoxetine HCl [PROzac] 20 mg PO DAILY 05/25/18 [History] Allergy/AdvReac Type Severity Reaction Status Date / Time No Known Allergies Allergy Verified 08/17/16 12:28 Review of Systems All systems PM: reviewed and no additional remarkable complaints except as stated (in the HPI) All systems PM: The remainder of the systems were reviewed and are negative General Surgery Exam Initial Vital Signs Temp Pulse Resp BP Pulse Ox 98.8 F 98 15 150/81 96 05/25/18 10:56 05/25/18 10:56 05/25/18 10:56 05/25/18 10:56 05/25/18 10:56 - General physical appearance well developed, well nourished, moderate distress - Eyes normal ocular movement - ENT normal mucosa, atraumatic, normocephalic - Neck trachea midline - Respiratory normal respiratory effort, clear to auscultation, other (Right lung breath sounds diminished) - Cardiovascular Cardiovascular exam: Present: irregular rhythm - Abdomen Abdomen general surgery: Present: bowel sounds present, soft, tender (mild) Abdominal Tenderness: Present: epigastic - Integumentary Integumentary general surgery: Present: warm and dry - Neurologic Present: CN 2-12 grossly intact - Musculoskeletal Present: normal gait, normal posture - Psychiatric Psychiatric general surgery: Present: appropriate, oriented to person, oriented to place, oriented to time, speech is normal, memory intact Exam Initial Vital Signs Temp Pulse Resp BP Pulse Ox 98.8 F 98 15 150/81 96 05/25/18 10:56 05/25/18 10:56 05/25/18 10:56 05/25/18 10:56 05/25/18 10:56 Results - Labs 05/31/18 05:27 05/31/18 05:27 Abnormal lab results RBC 3.25 M/mcL (3.82-4.97) L 05/31/18 05:27 Hgb 9.6 g/dL (11.5-15.4) L 05/31/18 05:27 Hct 29.4 % (35.3-44.9) L 05/31/18 05:27 Potassium 3.2 mEq/L (3.5-5.1) L 05/31/18 05:27 Chloride 108 mEq/L (98-107) H 05/31/18 05:27 BUN 2 mg/dL (6-20) L 05/31/18 05:27 Creatinine 0.34 mg/dL (0.60-1.20) L 05/31/18 05:27 Glucose 107 mg/dL (70-105) H 05/31/18 05:27 Calcium 8.5 mg/dL (8.6-10.3) L 05/31/18 05:27 Total Bilirubin 1.7 mg/dL (0.3-1.0) H 05/31/18 05:27 Direct Bilirubin 5.2 mg/dL (0.0-0.2) H 05/25/18 21:29 Indirect Bilirubin 2.6 mg/dL (0.0-1.2) H 05/25/18 21:29 ALT 119 Units/L (7-52) H 05/31/18 05:27 Alkaline Phosphatase 213 Units/L (34-104) H 05/31/18 05:27 Serum Total Protein 5.8 g/dL (6.4-8.9) L 05/31/18 05:27 Albumin 3.1 g/dL (3.5-5.7) L 05/31/18 05:27 Amylase 703 Units/L (29-103) H 05/27/18 04:17 Lipase > 1800 Units/L (11-82) H 05/27/18 04:17 Urine Color Converse (Yellow) A 05/25/18 11:32 Urine Clarity Cloudy (Clear) A 05/25/18 11:32 Urine Protein 30 mg/dL (Neg-Trace) H 05/25/18 11:32 Urine Ketones Trace mg/dL (Negative) H 05/25/18 11:32 Urine Nitrite Positive (Negative) A 05/25/18 11:32 Urine Bilirubin Large (Negative) H 05/25/18 11:32 Ur Leukocyte Esterase Small (Negative) H 05/25/18 11:32 Ur Squamous Epith Cells Many per lpf (None-Few) H 05/25/18 11:32 Hepatitis C RNA Quant DETECTED (Not Detected) A 05/26/18 11:56 Diabetes panel 05/31/18 Range/Units 05:27 Sodium 142 (136-145) mEq/L Potassium 3.2 L (3.5-5.1) mEq/L Chloride 108 H (98-107) mEq/L Carbon Dioxide 26 (23-29) mEq/L BUN 2 L (6-20) mg/dL Creatinine 0.34 L (0.60-1.20) mg/dL Glucose 107 H (70-105) mg/dL Calcium 8.5 L (8.6-10.3) mg/dL AST 27 (13-39) Units/L ALT 119 H (7-52) Units/L Alkaline Phosphatase 213 H (34-104) Units/L Albumin 3.1 L (3.5-5.7) g/dL Calcium panel 05/31/18 Range/Units 05:27 Calcium 8.5 L (8.6-10.3) mg/dL Phosphorus 2.8 (2.7-4.5) mg/dL Albumin 3.1 L (3.5-5.7) g/dL Pituitary panel 05/31/18 Range/Units 05:27 Sodium 142 (136-145) mEq/L Potassium 3.2 L (3.5-5.1) mEq/L Chloride 108 H (98-107) mEq/L Carbon Dioxide 26 (23-29) mEq/L BUN 2 L (6-20) mg/dL Creatinine 0.34 L (0.60-1.20) mg/dL Glucose 107 H (70-105) mg/dL Calcium 8.5 L (8.6-10.3) mg/dL Adrenal panel 05/31/18 Range/Units 05:27 Sodium 142 (136-145) mEq/L Potassium 3.2 L (3.5-5.1) mEq/L Chloride 108 H (98-107) mEq/L Carbon Dioxide 26 (23-29) mEq/L BUN 2 L (6-20) mg/dL Creatinine 0.34 L (0.60-1.20) mg/dL Glucose 107 H (70-105) mg/dL Calcium 8.5 L (8.6-10.3) mg/dL Total Bilirubin 1.7 H (0.3-1.0) mg/dL AST 27 (13-39) Units/L ALT 119 H (7-52) Units/L Alkaline Phosphatase 213 H (34-104) Units/L Albumin 3.1 L (3.5-5.7) g/dL All other labs normal. - Imaging Additional studies: Gallbladder Ultrasound 05/25/18 14:34 IMPRESSION: Cholelithiasis along with findings concerning for acute cholecystitis with positive sonographic Velasquez's sign along with gallbladder wall thickening. Distention of common bile duct along with intrahepatic biliary ducts without definite intraluminal filling defect to the visualized common bile duct but possibly with some tapering of the duct towards intrapancreatic portion. With the clinical history of jaundice consider further evaluation with MRCP or ERCP. D/ / 05/25/2018 16:11:40 Filemon Palmer MD / [email or web address] Interpreting Provider: Filemon Palmer MD Abdomen MRI 05/25/18 18:30 IMPRESSION: 1. Obstructing choledocholithiasis. Severe intrahepatic biliary ductal dilatation and dilatation of the proximal half of the common bowel duct secondary to a 1.4 cm obstructing mid common bowel duct stone. 2. Gallbladder loaded with stones most between 1 and 1.5 cm in size. The findings were sent to the [facility]iology [facility] at 8:39 pm on 05/25/2018to be communicated to a licensed caregiver. D/ / Desmond Williamson MD / Desmond Williamson MD Interpreting Provider: Desmond Williamson MD Cath/Invasive Procedure 05/26/18 19:28 IMPRESSION: Multiple filling defects in the common duct compatible with choledocholithiasis. A plastic stent is placed in the duct. D/ / Preston Crane MD / Preston Crane MD Interpreting Provider: Preston Crane MD Abdomen/Pelvis CT 05/27/18 12:30 IMPRESSION: 1. Interval placement of a common bile duct stent with decreasing biliary dilation. 2. Findings of acute pancreatitis with large amounts of new retroperitoneal/peripancreatic free fluid and moderate amount of ascites in the abdomen and pelvis. 3. Cholelithiasis with gallbladder filled with stones. Pericholecystic fluid is nonspecific given the acute pancreatitis. D/ / 05/27/2018 13:17:45 Fausto Bedoya MD / merced Interpreting Provider: Fausto Bedoya MD Consult Discharge Plan - Plan Referrals: Elisa Steele MD [Primary Care Provider] - - Attending Attestation For this encounter, I have reviewed the [employer] or PA documentation, treatment plan, and medical decision making; and I have had face to face time with this patient.
[2018-05-31 10:17] LABS: Troponin I < 0.03 ng/mL (< 0.04)
[2018-05-31 11:09] LABS: Lipase 21 Units/L (11-82)
[2018-05-31] MEDS: *HR* Heparin 5,000 UNIT/ML VIAL SQ SCH ×2 (11:45→17:54)
--- NOTE | 2018-05-31 13:51 | Internal Med Progress Note ---
Hospitalist Progress Note - Encounter Date of Encounter: 05/31/18 Time of Encounter: 08:35 - Subjective Interval History: Pt seen and examined at bedside. Pt reported of diffuse chest pressure like pain with radiation to the left arm. EKG reported Afib with 55bpm. TNI negative. CP discomfort resolved spontaneously. She denied any abd pain,nausea, or vomiting. NO overnight events reported. Ten point ROS negative except as listed above. General surgery consulted for evaluation for cholecystectomy. Pt tentatively scheduled for laproscopic cholecystectomy in am pending cardiac clearance - Exam Vitals: Temp Pulse Resp BP Pulse Ox 98.4 F 84 16 151/81 97 05/31/18 10:35 05/31/18 10:35 05/31/18 10:35 05/31/18 10:35 05/31/18 10:35 Exam: General: No acute distress, AAO x 3 HEENT: EOMI, NC/AT, no scleral icterus Respiratory: Clear to auscultate bilaterally, no wheezing, no rales Cardiovascular: Regular, Rate, Rhythm, No murmurs GI: Soft,nontender, non distended, normal bowel sounds Ext: No edema, no tenderness, positive pulses Neuro: AAO x 3, no focal deficits - Assessment and Plan (1) Cholecystitis with cholelithiasis Current Visit: Yes Status: Acute Assessment and Plan: MRCP reviewed, obstructing stone on CBD GI on board and evaluation appreciated s/p ERCP on 05/26/[address] abd/pelvis reviewed, findings consistent with acute pancreatitis continue Zosyn continue IV fluids, pain control general surgery evaluation appreciated, tentatively scheduled for laproscopic cholecystecomy in am (06/01/18), pending cardiac clearance cardiology evaluation requested (2) Jaundice Current Visit: Yes Status: Resolved Assessment and Plan: as listed above (3) History of heroin use Current Visit: No Status: Chronic Assessment and Plan: Patient with history of 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 Currently on Subutex (4) Elevated transaminase level Current Visit: Yes Status: Acute Assessment and Plan: Likely secondary to choledocholithiasis GI on board, evaluation appreciated improving (5) Hep C w/o coma, chronic Current Visit: Yes Status: Chronic Assessment and Plan: GI on board, evaluation appreciated workup as per GI (6) UTI (urinary tract infection) Current Visit: Yes Status: Acute Assessment and Plan: continue IV abx urine culture reported no growth will treat for a total of 5 days (7) A-fib Current Visit: Yes Status: Acute Assessment and Plan: new onset afib will obtain 2D echo rate controlled cardiology evaluation requested continue tele monitoring (8) Hypokalemia Current Visit: Yes Status: Acute Assessment and Plan: K supplemented continue to monitor electrolytes and replace as needed DVT Prophylaxis: heparin SQ - Time Spent with Patient Total time spent is greater than 50% in coordination of care (as documented) at patient's floor/unit and/or counseling patient: Plan of Care Discussed with: patient (patient/RN/case management/content management consultant) Internal Medicine: Result - Labs CBC & Chem 7: 05/31/18 05:27 05/31/18 05:27 Labs: Short CBC 05/31/18 Range/Units 05:27 WBC 7.2 (4.3-11.1) K/mcL Hgb 9.6 L (11.5-15.4) g/dL Hct 29.4 L (35.3-44.9) % Plt Count 249 (140-400) K/mcL Neutrophils # 4.7 (1.6-8.9) K/mcL BMP 05/31/18 05:27 Sodium 142 Potassium 3.2 L Chloride 108 H Carbon Dioxide 26 BUN 2 L Creatinine 0.34 L Glucose 107 H Calcium 8.5 L Cardiac Enzymes 05/31/18 Range/Units 09:19 Troponin I < 0.03 (< 0.04) ng/mL Liver Function 05/31/18 Range/Units 05:27 Total Bilirubin 1.7 H (0.3-1.0) mg/dL AST 27 (13-39) Units/L ALT 119 H (7-52) Units/L Alkaline Phosphatase 213 H (34-104) Units/L Albumin 3.1 L (3.5-5.7) g/dL - ABG Interpretation ABG results: PT/INR, D-dimer PT 11.5 Seconds (9.4-12.1) 05/26/18 11:56 - Impressions Impressions Chest X-Ray 05/31/18 10:23 IMPRESSION: Small right effusion and right basilar airspace disease which could represent atelectasis or pneumonia. D/ / Basilio Vilchis MD / Basilio Vilchis MD Interpreting Provider: Basilio Vilchis MD Consult Discharge Plan - Plan Referrals: Elisa Steele MD [Primary Care Provider] - (1) Cholecystitis with cholelithiasis Qualifiers: Biliary obstruction: with biliary obstruction Qualified Code(s): K80.01 - Calculus of gallbladder with acute cholecystitis with obstruction (6) UTI (urinary tract infection) Qualifiers: Urinary tract infection type: site unspecified Hematuria presence: without hematuria Qualified Code(s): N39.0 - Urinary tract infection, site not specified (7) A-fib Qualifiers: Atrial fibrillation type: unspecified Qualified Code(s): I48.91 - Unspecified atrial fibrillation
--- NOTE | 2018-05-31 15:15 | Cardiology Consult Note ---
<Larry Vee - Last Filed: 05/31/18 16:00> Date of Encounter: 05/31/18 Time of Encounter: 15:12 Assessment and Plan (1) Pre-operative cardiovascular examination Current Visit: Yes Status: Acute Pre-operative risk stratification for cholecystectomy. No known personal cardiac hx. Chest pressure/dyspnea/back pain overnight in setting of acute cholecystitis. Reports worsening with inspiration--pleuritic component. ECG reveals ectopic atrial rhythm--HR 40s-50s. TTE ordered to evaluate structure and function. Prior to hospitalization, able to achieve 4 METS without chest pain or dyspnea. Continue telemetry. K 3.2--replace. If no significant findings on TTE, will be acceptable risk to undergo cholecystectomy. Will discuss and review with Dr. Ram. (2) Ectopic atrial rhythm Current Visit: Yes Status: Acute Ectopic atrial rhythm HR 40s-50s. Not on any AV ashish blockers--avoid. Continue tele. K 3.2--replace. (3) Fluid overload Current Visit: Yes Status: Acute Reports mild BLE and BUE swelling. I/Os reviewed. Net positive 8.5 L with total intake of 16.8L of IV fluids/antibiotics. Reports increase in weight. Will give one time dose of IV Lasix 40mg. Qualifiers: Hypervolemia type: unspecified Qualified Code(s): E87.70 - Fluid overload, unspecified Discussion w patient/family: The assessment and plan as outlined above was discussed with the patient and/or family members who expressed understanding and agreement. All questions were answered. Thank you for involving us in the care of your patient. Please call with any questions. I will discuss all the above with Dr. Ram and make changes as necessary. History of Present Illness Consult date: 05/31/18 Requesting physician: Geena Ramos Consult reason: pre-op risk stratification Chief complaint: ABD pain History of present illness: Ms. Hoover is a 38 year old female with PMH of IVDU, tobacco abuse, Hepatitis C that presented to the hospital with a 1 week history of abdominal pain. The pain was located in the RUQ and epigastric region, radiated into her back and shoulders. She has been found to have acute cholecystitis. Pain improved after ERCP and stent placement. She reports associated n/v which initially improved after ERCP but returned last evening. Reports increased belching and bloating. Reports symptoms of heartburn which are chronic for her. She admits to having chest pressure, shortness of breath overnight and dizziness overnight. She states it improved with IV fluids. Chest pain is worse with inspiration. ECG was concerning for rhythm change with bradycardia and cardiology consulted for further recs and for pre-op risk stratification for cholecystectomy. ECG reviewed--ectopic atrial rhythm, HR 40s-50s at bedside. Past Med Surg Social Fam HX - Past Medical History Medical history: GERD, hepatitis (C), other Psychiatric history: anxiety, depression - Past Surgical History Surgical History: other Additional surgical history: L ovary removed Apr 2017 - Social History Smoking Status: Current every day smoker Smokeless Tobacco Status: No Alcohol use: none Drug use: opiates, marijuana, IV Drug Use (last use was June 08, 2016 per patient) - Family History Sister Adopted: No Living Status: Still Living Hx Family Cardiac Disorders: No Hx Family Respiratory Disorders: No Hx Family Cancer: No Hx Family GI Disorders: No Hx Family Endocrine Disorder: No Hx Family Neuromuscular Disorders: No Hx Family Neurologic Disorders: No Hx Family HEENT Disorders: No Hx Family Autoimmune Disorders: No Mother Adopted: No Living Status: Still Living Hx Family Cardiac Disorders: Yes (RI X 2) Hx Family Respiratory Disorders: No Hx Family Cancer: No Hx Family GI Disorders: No Hx Family Endocrine Disorder: No Hx Family Neuromuscular Disorders: No Hx Family Neurologic Disorders: No Hx Family HEENT Disorders: No Hx Family Autoimmune Disorders: No Father History Unknown: Yes Living Status: Still Living Medications and Allergies Buprenorphine HCl [Subutex] 10 mg SL DAILY 05/25/18 [History] FLUoxetine HCl [PROzac] 20 mg PO DAILY 05/25/18 [History] Allergy/AdvReac Type Severity Reaction Status Date / Time No Known Allergies Allergy Verified 08/17/16 12:28 All Systems Review: The remainder of the systems were reviewed and are negative - Cardiovascular Cardiovascular: as per HPI, chest pain at rest, diaphoresis, dyspnea at rest, lightheadedness - Gastrointestinal Gastrointestinal: abdominal pain, nausea Physical Examination Vital Signs, Last 4 Hours Temp Pulse Resp BP Pulse Ox 05/31/18 14:49 97.8 F 52 16 151/80 99 Vital Signs Temp Pulse Resp BP Pulse Ox 05/31/18 14:49 97.8 F 52 16 151/80 99 05/31/18 10:35 98.4 F 84 16 151/81 97 05/31/18 09:54 98.1 F 59 18 157/67 97 05/31/18 08:48 98.7 F 49 16 151/85 96 05/31/18 08:01 98.2 F 77 15 158/78 98 05/31/18 07:35 98 05/31/18 03:55 98.1 F 74 14 162/82 98 05/30/18 19:43 98.4 F 69 14 159/89 100 Intake and Output 05/30/18 05/31/18 05/31/18 23:59 07:59 15:59 Intake Total 2120 / 2120 1440 / 1440 624 / 624 Output Total 450 / 450 1000 / 1000 950 / 950 Balance 1670 / 1670 440 / 440 -326 / -326 Intake: IV Fluids 1999 / 1999 1200 / 1200 624 / 624 0.9 % Sodium Chloride 1,000 ML 1999 / 1999 1000 / 1000 @ 150 mls/hr IVC .Q6H40M [facility] Rx #:[id number] Magnesium Sulfate 1 GM In 0.9 % 102 / 102 Sodium Chloride 100 ML @ 100 mls/hr IVPB ONCE ONE Rx#: [id number] Zosyn 3.375 GM In 0.9 % Sodium 200 / 200 Chloride (Mini-Bag +) 100 ML @ 25 mls/hr IVPB Q8H [facility] Rx#: [id number] KCl 40 MEQ Xylocaine 2 ML In 522 / 522 Dextrose 5% 500 ML @ 130.5 mls/ hr IVPB ONCE ONE Rx#:[id number] Oral 120 / 120 240 / 240 0 / 0 Output: Urine 450 / 450 1000 / 1000 900 / 900 Emesis 50 / 50 Other: Meal Lunch Percent of Meal Consumed 0% Stool Size Moderate Weight 88.4 kg Patient Weight 05/31/18 23:59 Weight 88.4 kg General: Conversant, No Apparent Distress HEENT: Atraumatic, Normocephaly, Mucus Membranes Moist Neck: No JVD, Normal carotid pulses Cardiac: Reg Rate and Rhythm, Normal S1 and S2, No Murmur Lungs: Normal Breath Sounds, No Wheeze, Rales, Rhonchi Neuro: Alert and responsive, No focal deficits noted Abdomen: Soft Skin: No rashes noted on visualized skin Musculoskeletal: No Chest Wall Tenderness Extremities: No Clubbing, No Cyanosis, Normal Pulses, Other (trivial BLE edema) Results 05/31/18 05:27 05/31/18 05:27 Lab Results 05/31/18 05/31/18 05/31/18 05:27 05:27 09:19 WBC 7.2 Hgb 9.6 L Hct 29.4 L Plt Count 249 Sodium 142 Potassium 3.2 L Chloride 108 H Carbon Dioxide 26 BUN 2 L Creatinine 0.34 L Glucose 107 H Calcium 8.5 L Magnesium 1.6 Total Bilirubin 1.7 H AST 27 ALT 119 H Alkaline Phosphatase 213 H Troponin I < 0.03 Lipase 21 Short CBC 05/31/18 Range/Units 05:27 WBC 7.2 (4.3-11.1) K/mcL Hgb 9.6 L (11.5-15.4) g/dL Hct 29.4 L (35.3-44.9) % Plt Count 249 (140-400) K/mcL Neutrophils # 4.7 (1.6-8.9) K/mcL BMP 05/31/18 Range/Units 05:27 Sodium 142 (136-145) mEq/L Potassium 3.2 L (3.5-5.1) mEq/L Chloride 108 H (98-107) mEq/L Carbon Dioxide 26 (23-29) mEq/L BUN 2 L (6-20) mg/dL Creatinine 0.34 L (0.60-1.20) mg/dL Glucose 107 H (70-105) mg/dL Calcium 8.5 L (8.6-10.3) mg/dL Cardiac Enzymes 05/31/18 Range/Units 09:19 Troponin I < 0.03 (< 0.04) ng/mL Liver Function 05/31/18 Range/Units 05:27 Total Bilirubin 1.7 H (0.3-1.0) mg/dL AST 27 (13-39) Units/L ALT 119 H (7-52) Units/L Alkaline Phosphatase 213 H (34-104) Units/L Albumin 3.1 L (3.5-5.7) g/dL Impressions Chest X-Ray 05/31/18 10:23 IMPRESSION: Small right effusion and right basilar airspace disease which could represent atelectasis or pneumonia. D/ / Basilio Vilchis MD / Basilio Vilchis MD Interpreting Provider: Basilio Vilchis MD Active Medications Buprenorphine HCl (Subutex) 10 mg SL DAILY [facility]; Protocol Stop: 11/24/18 23:46 Last Admin: 05/31/18 09:28 Dose: 10 mg Calcium Carbonate (Tums) 1,000 mg PO Q4HR PRN; Protocol PRN Reason: Heartburn Stop: 11/25/18 06:36 Last Admin: 05/30/18 23:01 Dose: 1,000 mg Heparin Sodium (Porcine) (Heparin) 5,000 unit SQ Q12HCO [facility] Stop: 11/30/18 11:01 Last Admin: 05/31/18 11:45 Dose: 5,000 unit Piperacillin Sod/Tazobactam (Sod 3.375 gm/ Sodium Chloride) 100 mls @ 25 mls/hr IVPB Q8H [facility] Stop: 11/26/18 10:13 Last Admin: 05/31/18 11:46 Dose: 25 mls/hr Sodium Chloride (0.9 % Sodium Chloride) 1,000 mls @ 100 mls/hr IVC .Q10H [facility] Stop: 11/30/18 14:01 Ketorolac Tromethamine (Toradol) 30 mg IVP Q6HR [facility] Stop: 06/02/18 20:00 Last Admin: 05/31/18 11:45 Dose: 30 mg Naloxone HCl (Narcan) 0.4 mg IVP Q2M PRN PRN Reason: SEE COMMENTS Stop: 11/24/18 18:41 Nitroglycerin (Nitroglycerin) 0.4 mg SL Q5M PRN PRN Reason: Chest Pain Stop: 11/30/18 09:05 Ondansetron HCl (Zofran) 4 mg IVP Q6HR PRN PRN Reason: Nausea And Vomiting Stop: 11/24/18 18:41 Last Admin: 05/31/18 09:36 Dose: 4 mg Oxycodone HCl (Oxycodone Oral Conc) 15 mg SL Q6HR PRN; Protocol PRN Reason: moderate to severe pain Stop: 11/26/18 09:54 Last Admin: 05/30/18 16:42 Dose: 15 mg Triamcinolone Acetonide (Kenalog In Orabase) 1 appl TP TID PRN PRN Reason: to oral sores Stop: 11/26/18 21:01 Last Admin: 05/27/18 18:20 Dose: 1 appl - Imaging and Cardiology Echo: pending - EKG Interpretation EKG results cardiology: personally reviewed (ectopic atrial rhythm HR 51.), ot her (12 hr tele AVG HR) Consult Discharge Plan - Plan Referrals: Elisa Steele MD [Primary Care Provider] - <VirgilrichardCherelle - Last Filed: 05/31/18 16:23> Date of Encounter: 05/31/18 - Attending Attestation I examined this patient and my medical decision-making was reviewed with 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 I agree with the documented findings, disposition and treatment plan as de scribed. Ms. Hoover presents with atypical chest discomfort in setting of acute cholecystitis. Troponin negative. ECG without acute findings. Patient able to achieve at least 4 METS at home. Impression/Plan: 1. Pre op CV risk assessment: Chest pain not indicative of ACS. Able to achieve at least 4 METS. Await echo findings. 2. Ectopic atrial rhythm: Noted on ECG. A benign finding in setting of acute gallbladder disease. Echo to evaluate for structural abnormalities. 3. Fluid overload: Patient complaining of feeling swollen. Objective data demonstrated net positive 8.5L having received 16.8L in IV fluids. Will give one dose of IV lasix. Echo pending. Assessment and Plan Discussion w patient/family: The assessment and plan as outlined above was discussed with the patient and/or family members who expressed understanding and agreement. All questions were answered. Thank you for involving us in the care of your patient. Please call with any questions. History of Present Illness History of present illness: Ms. Hoover is a 38 year old female All Systems Review: The remainder of the systems were reviewed and are negative Physical Examination Vital Signs, Last 4 Hours Temp Pulse Resp BP Pulse Ox 05/31/18 14:49 97.8 F 52 16 151/80 99 Results 05/31/18 05:27 05/31/18 05:27 Lab Results 05/31/18 05/31/18 05/31/18 05:27 05:27 09:19 WBC 7.2 Hgb 9.6 L Hct 29.4 L Plt Count 249 Sodium 142 Potassium 3.2 L Chloride 108 H Carbon Dioxide 26 BUN 2 L Creatinine 0.34 L Glucose 107 H Calcium 8.5 L Magnesium 1.6 Total Bilirubin 1.7 H AST 27 ALT 119 H Alkaline Phosphatase 213 H Troponin I < 0.03 Lipase 21
--- NOTE | 2018-05-31 17:25 | Electrocardiograph Report ---
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
[2018-05-31] MEDS: OXYCODONE Oral CONC 10 MG/0.5 ML ORAL.SYG SL PRN (21:24)
[2018-05-31] MEDS ORDERED: *HR* Promethazine 25 MG/ML VIAL IVP ONE (22:42)
[2018-06-01] MEDS: Ketorolac 30 MG/ML VIAL IVP SCH ×5 (00:16→23:51)
[2018-06-01] MEDS: Ondansetron 4 MG/2 ML VIAL IVP PRN ×2 (00:16→21:20)
[2018-06-01] MEDS: Piperacillin/Tazobactam 3.375 GM in 0.9 % Sodium Chloride Mini Bag 100 ML IVPB SCH ×3 (01:22→18:01)
[2018-06-01] MEDS: OXYCODONE Oral CONC 10 MG/0.5 ML ORAL.SYG SL PRN ×2 (03:46→16:22)
[2018-06-01] MEDS: 0.9 % Sodium Chloride 1,000 ML IVC SCH (04:33)
[2018-06-01] MEDS: *HR* Heparin 5,000 UNIT/ML VIAL SQ SCH ×2 (05:15→18:00)
[2018-06-01 05:54] LABS: Basophils % 0.5 %; Eosinophils # 0.2 K/mcL (0.0-0.6); Eosinophils % 2.3 %; Hematocrit 28.2 % (35.3-44.9); Hemoglobin 9.6 g/dL (11.5-15.4); Immature Granulocytes % 0.4 % (0-4); Lymphocytes # 2.6 K/mcL (0.6-4.6); Lymphocytes % 35.4 %; Mean Corpuscular Hemoglobin 29.3 pg (28.0-33.3); Mean Platelet Volume 10.9 fL (9.4-12.4); Monocytes # 0.4 K/mcL (0.0-1.3); Monocytes % 5.7 %; Neutrophils # 4.1 K/mcL (1.6-8.9); Platelet Count 302 K/mcL (140-400); Red Blood Count 3.28 M/mcL (3.82-4.97); Red Cell Distribution Width 14.3 % (11.5-14.5); Segmented Neutrophils % 55.7 %
[2018-06-01 06:25] LABS: Alanine Aminotransferase 94 Units/L (7-52); Albumin 3.1 g/dL (3.5-5.7); Albumin/Globulin Ratio 1.1 (1.1-2.2); Alkaline Phosphatase 194 Units/L (34-104); Aspartate Amino Transferase 22 Units/L (13-39); BUN/Creatinine Ratio 6 (6-26); Bilirubin,Total 1.6 mg/dL (0.3-1.0); Blood Urea Nitrogen 2 mg/dL (6-20); Calcium 8.4 mg/dL (8.6-10.3); Carbon Dioxide 30 mEq/L (23-29); Chloride 107 mEq/L (98-107); Globulin 2.9 g/dL (2.4-3.5); Glucose 96 mg/dL (70-105); Magnesium 1.6 mg/dL (1.6-2.6); Osmolality,Calculated 288 (280-300); Phosphorous 3.3 mg/dL (2.7-4.5); Potassium 3.3 mEq/L (3.5-5.1); Sodium 141 mEq/L (136-145); eGFR For Non-African Americans > 60 (> 60)
[2018-06-01] MEDS ORDERED: Furosemide 40 MG/4 ML VIAL IVP ONE (07:55)
[2018-06-01] MEDS ORDERED: Potassium Chloride 20 MEQ, Lidocaine 1% 2 ML in D5% in Water 250 ML IVPB ONE (08:24)
[2018-06-01] MEDS: *HR* Buprenorphine HCl 2 MG SUBLINGUAL TABLET SL SCH (08:57)
--- NOTE | 2018-06-01 09:50 | Internal Med Progress Note ---
Hospitalist Progress Note - Encounter Date of Encounter: 06/01/18 Time of Encounter: 08:26 - Subjective Interval History: Pt seen and examined at bedside. Resting in bed and denies any chest pain or discomfort at this time. Pt received a dose of lasix yesterday and reports of increased urination. I will discontinue patient's IV fluids Pt is scheduled for Laproscopic Cholecystectomy today No overnight events were reported Ten point ROS is negative except as listed above - Exam Vitals: Temp Pulse Resp BP Pulse Ox 97.7 F 67 16 145/82 96 06/01/18 07:02 06/01/18 07:02 06/01/18 07:02 06/01/18 07:02 06/01/18 09:09 Exam: General: No acute distress, AAO x 3 HEENT: EOMI, NC/AT, no scleral icterus Respiratory: Clear to auscultate bilaterally, no wheezing, no rales Cardiovascular: Regular, Rate, Rhythm, No murmurs GI: Soft,nontender, non distended, normal bowel sounds Ext: No edema, no tenderness, positive pulses Neuro: AAO x 3, no focal deficits - Assessment and Plan (1) Cholecystitis with cholelithiasis Current Visit: Yes Status: Acute Assessment and Plan: MRCP reviewed, obstructing stone on CBD GI on board and evaluation appreciated s/p ERCP on 05/26/[address] abd/pelvis reviewed, findings consistent with acute pancreatitis continue Zosyn continue IV fluids, pain control general surgery evaluation appreciated, scheduled for laproscopic cholecystecomy today (06/01/18) (2) Jaundice Current Visit: Yes Status: Resolved Assessment and Plan: as listed above (3) History of heroin use Current Visit: No Status: Chronic Assessment and Plan: Patient with history of 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 Currently on Subutex (4) Elevated transaminase level Current Visit: Yes Status: Acute Assessment and Plan: Likely secondary to choledocholithiasis GI on board, evaluation appreciated improving (5) Hep C w/o coma, chronic Current Visit: Yes Status: Chronic Assessment and Plan: GI on board, evaluation appreciated workup as per GI (6) UTI (urinary tract infection) Current Visit: Yes Status: Acute Assessment and Plan: continue IV abx urine culture reported no growth will treat for a total of 5 days (7) A-fib Current Visit: Yes Status: Ruled-out Assessment and Plan: Cardiology input appreciated rhythm consistent with ectopic atrial rhythm continue tele monitoring no further intervention recommended (8) Hypokalemia Current Visit: Yes Status: Acute Assessment and Plan: K supplemented continue to monitor electrolytes and replace as needed DVT Prophylaxis: heparin SQ - Time Spent with Patient Total time spent is greater than 50% in coordination of care (as documented) at patient's floor/unit and/or counseling patient: Plan of Care Discussed with: patient (patient/RN) Internal Medicine: Result - Labs CBC & Chem 7: 06/01/18 05:39 06/01/18 05:39 Labs: Short CBC 06/01/18 Range/Units 05:39 WBC 7.4 (4.3-11.1) K/mcL Hgb 9.6 L (11.5-15.4) g/dL Hct 28.2 L (35.3-44.9) % Plt Count 302 (140-400) K/mcL Neutrophils # 4.1 (1.6-8.9) K/mcL BMP 06/01/18 05:39 Sodium 141 Potassium 3.3 L Chloride 107 Carbon Dioxide 30 H BUN 2 L Creatinine 0.32 L Glucose 96 Calcium 8.4 L Cardiac Enzymes 05/31/18 Range/Units 09:19 Troponin I < 0.03 (< 0.04) ng/mL Liver Function 06/01/18 Range/Units 05:39 Total Bilirubin 1.6 H (0.3-1.0) mg/dL AST 22 (13-39) Units/L ALT 94 H (7-52) Units/L Alkaline Phosphatase 194 H (34-104) Units/L Albumin 3.1 L (3.5-5.7) g/dL - ABG Interpretation ABG results: PT/INR, D-dimer PT 11.5 Seconds (9.4-12.1) 05/26/18 11:56 - Impressions Impressions Chest X-Ray 05/31/18 10:23 IMPRESSION: Small right effusion and right basilar airspace disease which could represent atelectasis or pneumonia. D/ / Basilio Vilchis MD / Basilio Vilchis MD Interpreting Provider: Basilio Vilchis MD Consult Discharge Plan - Plan Referrals: Elisa Steele MD [Primary Care Provider] - (1) Cholecystitis with cholelithiasis Qualifiers: Biliary obstruction: with biliary obstruction Qualified Code(s): K80.01 - Calculus of gallbladder with acute cholecystitis with obstruction (6) UTI (urinary tract infection) Qualifiers: Urinary tract infection type: site unspecified Hematuria presence: without hematuria Qualified Code(s): N39.0 - Urinary tract infection, site not specified (7) A-fib Qualifiers: Atrial fibrillation type: unspecified Qualified Code(s): I48.91 - Unspecified atrial fibrillation
--- NOTE | 2018-06-01 11:14 | General Surgery Progress Note ---
Date of Encounter: 06/01/18 Time of Encounter: 10:00 - Assessment and Plan (1) Cholecystitis with cholelithiasis Current Visit: Yes Status: Acute Patient is tentatively placed on the operative scheduled for 06/02/[address] Ochoa, pending echocardiogram and cardiovascular risk stratification. She is okay to have full liquid diet today. NPO at midnight. Qualifiers: Cholelithiasis location: gallbladder Cholecystitis acuity: acute Biliary obstruction: with biliary obstruction Qualified Code(s): K80.01 - Calculus of gallbladder with acute cholecystitis with obstruction Subjective Patient reports: no new complaints, still having pain, pain is less, voiding w/o difficulty, flatus, bowel movement, afebrile Objective Vital Signs - Last 8 Hours Temp Pulse Resp BP Pulse Ox 06/01/18 10:25 98.0 F 98 18 104/66 98 06/01/18 09:09 96 06/01/18 07:02 97.7 F 67 16 145/82 96 06/01/18 04:31 98.1 F 71 14 144/80 96 Intake and Output 05/31/18 06/01/18 06/01/18 23:59 07:59 15:59 Intake Total 1584 / 1584 1100 / 1100 0 / 0 Output Total 1250 / 1250 3500 / 3500 2600 / 2600 Balance 334 / 334 -2400 / -2400 -2600 / -2600 Intake: IV Fluids 1464 / 1464 1100 / 1100 0.9 % Sodium Chloride 1,000 ML 1000 / 1000 1000 / 1000 @ 100 mls/hr IVC .Q10H [facility] Rx#: [id number] Zosyn 3.375 GM In 0.9 % Sodium 100 / 100 100 / 100 Chloride (Mini-Bag +) 100 ML @ 25 mls/hr IVPB Q8H [facility] Rx#: [id number] Oral 120 / 120 0 / 0 0 / 0 Output: Urine 1150 / 1150 3500 / 3500 2600 / 2600 Emesis 100 / 100 Other: Meal Dinner NPO Percent of Meal Consumed 25% 0% Blood Glucose* 83 - General physical appearance no distress - Eyes normal ocular movement - ENT poor residential, atraumatic, normocephalic - Neck Neck exam: trachea midline - Respiratory normal expansion, normal respiratory effort, clear to auscultation - Cardiovascular Cardiovascular exam: Present: irregular rhythm - Abdomen Abdomen: Present: bowel sounds present, soft, tender Abdominal Tenderness: RUQ - Integumentary no rash - Neurologic normal coordination, normal sensation - Musculoskeletal normal posture - Psychiatric oriented to time, oriented to person, oriented to place, speech is normal, mem ory intact - Labs 06/01/18 05:39 06/01/18 05:39 Diabetes panel 06/01/18 Range/Units 05:39 Sodium 141 (136-145) mEq/L Potassium 3.3 L (3.5-5.1) mEq/L Chloride 107 (98-107) mEq/L Carbon Dioxide 30 H (23-29) mEq/L BUN 2 L (6-20) mg/dL Creatinine 0.32 L (0.60-1.20) mg/dL Glucose 96 (70-105) mg/dL Calcium 8.4 L (8.6-10.3) mg/dL AST 22 (13-39) Units/L ALT 94 H (7-52) Units/L Alkaline Phosphatase 194 H (34-104) Units/L Albumin 3.1 L (3.5-5.7) g/dL Calcium panel 06/01/18 Range/Units 05:39 Calcium 8.4 L (8.6-10.3) mg/dL Phosphorus 3.3 (2.7-4.5) mg/dL Albumin 3.1 L (3.5-5.7) g/dL Pituitary panel 06/01/18 Range/Units 05:39 Sodium 141 (136-145) mEq/L Potassium 3.3 L (3.5-5.1) mEq/L Chloride 107 (98-107) mEq/L Carbon Dioxide 30 H (23-29) mEq/L BUN 2 L (6-20) mg/dL Creatinine 0.32 L (0.60-1.20) mg/dL Glucose 96 (70-105) mg/dL Calcium 8.4 L (8.6-10.3) mg/dL Adrenal panel 06/01/18 Range/Units 05:39 Sodium 141 (136-145) mEq/L Potassium 3.3 L (3.5-5.1) mEq/L Chloride 107 (98-107) mEq/L Carbon Dioxide 30 H (23-29) mEq/L BUN 2 L (6-20) mg/dL Creatinine 0.32 L (0.60-1.20) mg/dL Glucose 96 (70-105) mg/dL Calcium 8.4 L (8.6-10.3) mg/dL Total Bilirubin 1.6 H (0.3-1.0) mg/dL AST 22 (13-39) Units/L ALT 94 H (7-52) Units/L Alkaline Phosphatase 194 H (34-104) Units/L Albumin 3.1 L (3.5-5.7) g/dL Consult Discharge Plan - Plan Referrals: Elisa Steele MD [Primary Care Provider] -
--- NOTE | 2018-06-01 12:06 | Cardiology Progress Note ---
Date of Encounter: 06/01/18 Time of Encounter: 12:03 Assessment and Plan (1) Pre-operative cardiovascular examination Current Visit: Yes Status: Acute Pre-operative risk stratification for cholecystectomy. No known personal cardiac hx. Chest pressure/dyspnea/back pain overnight 05/31 in setting of acute cholecystitis. Now resolved. ECG 05/31 ectopic atrial rhythm--HR 40s-50s. HR now improved, 60s SR at bedside. 12 hr tele AVG HR 55. TTE EF 60%, normal wall motion, no significant valvular dysfunction. Prior to hospitalization, able to achieve 4 METS without chest pain or dyspnea. Pt is acceptable risk to undergo cholecystectomy. Cardiology signing off. Reconsult PRN. (2) Ectopic atrial rhythm Current Visit: Yes Status: Acute Now resolved. SR HR 60s at bedside currently. Not on any AV ashish blockers--avoid. Continue tele. K 3.3--replace. (3) Fluid overload Current Visit: Yes Status: Acute Reports mild BLE and BUE swelling . I/Os reviewed. Was net positive 8.5 L with total intake of 16.8L of IV fluids/antibiotics. Gave time dose of IV Lasix 40mg. -2600mL this AM. Feeling much better. Qualifiers: Hypervolemia type: unspecified Qualified Code(s): E87.70 - Fluid overload, unspecified Discussion w patient/family: The assessment and plan as outlined above was discussed with the patient and/or family members who expressed understanding and agreement. All questions were answered. Thank you for involving us in the care of your patient. Please call with any questions. I will discuss all the above with Dr. Ram and make changes as necessary. Subjective Principal diagnosis: cholecystitis Interval history: Pt reports feeling much better today. Chest pressure has resolved, denies dyspnea. Only current complaint is a headache. Objective Vital Signs, Last 4 Hours Temp Pulse Resp BP Pulse Ox 06/01/18 10:25 98.0 F 98 18 104/66 98 06/01/18 09:09 96 Vital Signs Temp Pulse Resp BP Pulse Ox 06/01/18 10:25 98.0 F 98 18 104/66 98 06/01/18 09:09 96 06/01/18 07:02 97.7 F 67 16 145/82 96 06/01/18 04:31 98.1 F 71 14 144/80 96 06/01/18 00:13 98.2 F 63 14 147/84 97 05/31/18 21:24 100 05/31/18 19:28 98.9 F 56 14 163/77 100 05/31/18 14:49 97.8 F 52 16 151/80 99 Intake and Output 05/31/18 06/01/18 06/01/18 23:59 07:59 15:59 Intake Total 1584 / 1584 1100 / 1100 0 / 0 Output Total 1250 / 1250 3500 / 3500 2600 / 2600 Balance 334 / 334 -2400 / -2400 -2600 / -2600 Intake: IV Fluids 1464 / 1464 1100 / 1100 0.9 % Sodium Chloride 1,000 ML 1000 / 1000 1000 / 1000 @ 100 mls/hr IVC .Q10H [facility] Rx#: [id number] Zosyn 3.375 GM In 0.9 % Sodium 100 / 100 100 / 100 Chloride (Mini-Bag +) 100 ML @ 25 mls/hr IVPB Q8H [facility] Rx#: [id number] Oral 120 / 120 0 / 0 0 / 0 Output: Urine 1150 / 1150 3500 / 3500 2600 / 2600 Emesis 100 / 100 Other: Meal Dinner NPO Percent of Meal Consumed 25% 0% Blood Glucose* 83 General: Conversant HEENT: Atraumatic, Normocephaly, Mucus Membranes Moist Neck: No JVD, Normal carotid pulses Cardiac: Reg Rate and Rhythm, Normal S1 and S2, No Murmur Lungs: Normal Breath Sounds, No Wheeze, Rales, Rhonchi Neuro: Alert and responsive, No focal deficits noted Abdomen: Soft Skin: No rashes noted on visualized skin Musculoskeletal: No Chest Wall Tenderness Extremities: No Clubbing, No Cyanosis, No Edema, Normal Pulses Results 06/01/18 05:39 06/01/18 05:39 Lab Results 06/01/18 06/01/18 05:39 05:39 WBC 7.4 Hgb 9.6 L Hct 28.2 L Plt Count 302 Sodium 141 Potassium 3.3 L Chloride 107 Carbon Dioxide 30 H BUN 2 L Creatinine 0.32 L Glucose 96 Calcium 8.4 L Magnesium 1.6 Total Bilirubin 1.6 H AST 22 ALT 94 H Alkaline Phosphatase 194 H Short CBC 06/01/18 Range/Units 05:39 WBC 7.4 (4.3-11.1) K/mcL Hgb 9.6 L (11.5-15.4) g/dL Hct 28.2 L (35.3-44.9) % Plt Count 302 (140-400) K/mcL Neutrophils # 4.1 (1.6-8.9) K/mcL BMP 06/01/18 Range/Units 05:39 Sodium 141 (136-145) mEq/L Potassium 3.3 L (3.5-5.1) mEq/L Chloride 107 (98-107) mEq/L Carbon Dioxide 30 H (23-29) mEq/L BUN 2 L (6-20) mg/dL Creatinine 0.32 L (0.60-1.20) mg/dL Glucose 96 (70-105) mg/dL Calcium 8.4 L (8.6-10.3) mg/dL Liver Function 06/01/18 Range/Units 05:39 Total Bilirubin 1.6 H (0.3-1.0) mg/dL AST 22 (13-39) Units/L ALT 94 H (7-52) Units/L Alkaline Phosphatase 194 H (34-104) Units/L Albumin 3.1 L (3.5-5.7) g/dL Impressions Echocardiogram 05/31/18 13:54 Impressions: LVEF 60%. Normal LV chamber size, wall thickness and function. Normal left ventricular diastolic function. Normal right ventricular structure and function. No evidence of pulmonary hypertension. No significant valvular dysfunction. Left Ventricular Wall Motion: Rest Echo Findings All wall segments showed normal motion. Findings: Study Quality * Technically adequate exam. ECG Findings * Sinus bradycardia. Left Ventricle * LVEF 60%. * Normal LV chamber size, wall thickness and function. * Normal left ventricular diastolic function. Right Ventricle * Normal right ventricular structure and function. Left Atrium * Normal left atrial size. Right Atrium * Normal right atrial size. Interatrial Septum * No evidence of PFO by color Doppler. Aortic Valve * Aortic valve not well visualized. * No aortic regurgitation. * No aortic stenosis. Mitral Valve * Normal mitral valve structure. * No mitral stenosis. * Trace mitral regurgitation. Tricuspid Valve * Trace tricuspid regurgitation. * No tricuspid stenosis. * Normal tricuspid valve structure. * No evidence of pulmonary hypertension. Pulmonic Valve * Pulmonic valve is not well visualized. Aorta * Normally sized aortic root. Pericardium * The pericardium appears normal. IVC * The IVC is dilated. Pulmonary Artery * Pulmonary artery not well visualized. Active Medications Buprenorphine HCl (Subutex) 10 mg SL DAILY [facility]; Protocol Stop: 11/24/18 23:46 Last Admin: 06/01/18 08:57 Dose: 10 mg Calcium Carbonate (Tums) 1,000 mg PO Q4HR PRN; Protocol PRN Reason: Heartburn Stop: 11/25/18 06:36 Last Admin: 05/30/18 23:01 Dose: 1,000 mg Heparin Sodium (Porcine) (Heparin) 5,000 unit SQ Q12HCO [facility] Stop: 11/30/18 11:01 Last Admin: 06/01/18 05:15 Dose: 5,000 unit Piperacillin Sod/Tazobactam (Sod 3.375 gm/ Sodium Chloride) 100 mls @ 25 mls/hr IVPB Q8H [facility] Stop: 11/26/18 10:13 Last Admin: 06/01/18 08:58 Dose: 25 mls/hr Ketorolac Tromethamine (Toradol) 30 mg IVP Q6HR [facility] Stop: 06/02/18 20:00 Last Admin: 06/01/18 11:51 Dose: 30 mg Naloxone HCl (Narcan) 0.4 mg IVP Q2M PRN PRN Reason: SEE COMMENTS Stop: 11/24/18 18:41 Nitroglycerin (Nitroglycerin) 0.4 mg SL Q5M PRN PRN Reason: Chest Pain Stop: 11/30/18 09:05 Ondansetron HCl (Zofran) 4 mg IVP Q6HR PRN PRN Reason: Nausea And Vomiting Stop: 11/24/18 18:41 Last Admin: 06/01/18 00:16 Dose: 4 mg Oxycodone HCl (Oxycodone Oral Conc) 15 mg SL Q6HR PRN; Protocol PRN Reason: moderate to severe pain Stop: 11/26/18 09:54 Last Admin: 06/01/18 03:46 Dose: 15 mg Triamcinolone Acetonide (Kenalog In Orabase) 1 appl TP TID PRN PRN Reason: to oral sores Stop: 11/26/18 21:01 Last Admin: 05/27/18 18:20 Dose: 1 appl - Imaging and Cardiology Echo: report reviewed - EKG Interpretation EKG results cardiology: other (12 hr tele AVG HR 55, currently SR HR 60s) Consult Discharge Plan - Plan Referrals: Elisa Steele MD [Primary Care Provider] -
--- NOTE | 2018-06-01 18:06 | Anesthesia Evaluation PreOp ---
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: Other (hx IVDU (Heroin) - last used 2 years ago; now on buprenorphine) Other Medical History: Hepatic (Hep C), GERD Anesthesia History: No Prior Anesthetic Complications, Past Anesthesia (ERCP, left ovary resection) Alcohol Use: none Drug use: opiates, marijuana, IV Drug Use (last use was June 08, 2016 per patient) Medications and Allergies Buprenorphine HCl [Subutex] 10 mg SL DAILY 05/25/18 [History] FLUoxetine HCl [PROzac] 20 mg PO DAILY 05/25/18 [History] Allergy/AdvReac Type Severity Reaction Status Date / Time No Known Allergies Allergy Verified 08/17/16 12:28 - Meds/Allergy Pre-op Review Medications Reviewed: Yes Allergies Reviewed: Yes Beta Blockers on Current Med List: No Anesthesia Results - Labs 06/01/18 05:39 06/01/18 05:39 - Imaging EKG: report reviewed, image reviewed (ECTOPIC ATRIAL RHYTHM) Additional studies: Cardiology consult: Assessment and Plan (1) Pre-operative cardiovascular examination Current Visit: Yes Status: Acute Pre-operative risk stratification for cholecystectomy. No known personal cardiac hx. Chest pressure/dyspnea/back pain overnight 05/31 in setting of acute cholecystitis. Now resolved. ECG 05/31 ectopic atrial rhythm--HR 40s-50s. HR now improved, 60s SR at bedside. 12 hr tele AVG HR 55. TTE EF 60%, normal wall motion, no significant valvular dysfunction. Prior to hospitalization, able to achieve 4 METS without chest pain or dyspnea. Pt is acceptable risk to undergo cholecystectomy. Cardiology signing off. Reconsult PRN. (2) Ectopic atrial rhythm Current Visit: Yes Status: Acute Now resolved. SR HR 60s at bedside currently. Not on any AV ashish blockers--avoid. Continue tele. K 3.3--replace. (3) Fluid overload Current Visit: Yes Status: Acute Reports mild BLE and BUE swelling . I/Os reviewed. Was net positive 8.5 L with total intake of 16.8L of IV fluids/antibiotics. Gave time dose of IV Lasix 40mg. -2600mL this AM. Feeling much better. Qualifiers: Hypervolemia type: unspecified Qualified Code(s): E87.70 - Fluid overload, unspecified Discussion w patient/family: The assessment and plan as outlined above was discussed with the patient and/or family members who expressed understanding and agreement. All questions were answered. Thank you for involving us in the care of your patient. Please call wi th any questions. I will discuss all the above with Dr. Ram and make changes as necessary. Anesthesia Exam Last Vital Signs Temp 97.7 F 06/01/18 15:05 Pulse 74 06/01/18 15:05 Resp 18 06/01/18 15:05 BP 160/87 06/01/18 15:05 Pulse Ox 97 06/01/18 15:05 Weight: 88 kg - HEENT Pupil (Motor): Pupils equal, EOMI Mallampati: I Teeth: Poor dentition Oral Opening: Greater than 3 - PERSONNEL CLERK LOC: Oriented - Cardiac Rhythm: Regular Murmur: None - Pulmonary Breath Sounds: bilateral Clear Respiratory Effort: Symmetrical Anesthesia Assess/Plan ASA Score: 3 Level of consciousness: Cooperative Anesthetic Plan: General Monitoring Plan: Standard Monitors Recovery Plan: PACU
[2018-06-02] MEDS: Piperacillin/Tazobactam 3.375 GM in 0.9 % Sodium Chloride Mini Bag 100 ML IVPB SCH ×2 (01:37→09:37)
[2018-06-02] MEDS: OXYCODONE Oral CONC 10 MG/0.5 ML ORAL.SYG SL PRN (01:39)
[2018-06-02] MEDS: *HR* Heparin 5,000 UNIT/ML VIAL SQ SCH (05:30)
[2018-06-02] MEDS: Ketorolac 30 MG/ML VIAL IVP SCH ×3 (05:41→19:38)
[2018-06-02 06:16] LABS: Basophils % 0.5 %; Eosinophils # 0.2 K/mcL (0.0-0.6); Eosinophils % 2.6 %; Hematocrit 31.1 % (35.3-44.9); Hemoglobin 10.4 g/dL (11.5-15.4); Immature Granulocytes % 0.5 % (0-4); Lymphocytes % 32.8 %; Mean Corpuscular HGB Conc 33.4 g/dL (31.6-35.5); Mean Corpuscular Hemoglobin 29.2 pg (28.0-33.3); Mean Corpuscular Volume 87.4 fL (83.0-100.0); Mean Platelet Volume 12.1 fL (9.4-12.4); Monocytes # 0.3 K/mcL (0.0-1.3); Monocytes % 5.4 %; Platelet Count 236 K/mcL (140-400); Red Blood Count 3.56 M/mcL (3.82-4.97); Red Cell Distribution Width 13.7 % (11.5-14.5); Segmented Neutrophils % 58.2 %
[2018-06-02 06:53] LABS: Alanine Aminotransferase 81 Units/L (7-52); Albumin 3.4 g/dL (3.5-5.7); Albumin/Globulin Ratio 1.1 (1.1-2.2); Alkaline Phosphatase 208 Units/L (34-104); Aspartate Amino Transferase 26 Units/L (13-39); BUN/Creatinine Ratio 5 (6-26); Bilirubin,Total 1.6 mg/dL (0.3-1.0); Blood Urea Nitrogen 2 mg/dL (6-20); Carbon Dioxide 32 mEq/L (23-29); Chloride 102 mEq/L (98-107); Globulin 3.2 g/dL (2.4-3.5); Glucose 89 mg/dL (70-105); Magnesium 1.6 mg/dL (1.6-2.6); Osmolality,Calculated 288 (280-300); Phosphorous 4.8 mg/dL (2.7-4.5); Potassium 3.8 mEq/L (3.5-5.1); Sodium 141 mEq/L (136-145); Total Protein 6.6 g/dL (6.4-8.9); eGFR For Non-African Americans > 60 (> 60)
[2018-06-02] MEDS: *HR* Buprenorphine HCl 2 MG SUBLINGUAL TABLET SL SCH (07:17)
[2018-06-02 08:48] LABS: Neutrophils # 3.6 K/mcL (1.6-8.9)
--- NOTE | 2018-06-02 13:00 | Internal Med Progress Note ---
Hospitalist Progress Note - Encounter Date of Encounter: 06/02/18 Time of Encounter: 12:35 - Subjective Interval History: Pt seen and examined at bedside. Pain appropriately controlled, surgery was on hold pending cardiac clearance pt is scheduled for laproscopic cholecystectomy later today No overnight events reported Ten point ROS is negative except as listed above - Exam Vitals: Temp Pulse Resp BP Pulse Ox 98.0 F 67 18 151/88 96 06/02/18 10:25 06/02/18 10:25 06/02/18 10:25 06/02/18 10:25 06/02/18 10:25 Exam: General: No acute distress, AAO x 3 HEENT: EOMI, NC/AT, no scleral icterus Respiratory: Clear to auscultate bilaterally, no wheezing, no rales Cardiovascular: Regular, Rate, Rhythm, No murmurs GI: Soft,nontender, non distended, normal bowel sounds Ext: No edema, no tenderness, positive pulses Neuro: AAO x 3, no focal deficits - Assessment and Plan (1) Cholecystitis with cholelithiasis Current Visit: Yes Status: Acute Assessment and Plan: MRCP reviewed, obstructing stone on CBD GI on board and evaluation appreciated s/p ERCP on 05/26/[address] abd/pelvis reviewed, findings consistent with acute pancreatitis continue Zosyn , pain control general surgery evaluation appreciated, scheduled for laproscopic cholecystecomy today (06/02/18) (2) Jaundice Current Visit: Yes Status: Resolved Assessment and Plan: as listed above (3) History of heroin use Current Visit: No Status: Chronic Assessment and Plan: Patient with history of 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 Currently on Subutex (4) Elevated transaminase level Current Visit: Yes Status: Resolved Assessment and Plan: Likely secondary to choledocholithiasis GI on board, evaluation appreciated improving (5) Hep C w/o coma, chronic Current Visit: Yes Status: Chronic Assessment and Plan: GI on board, evaluation appreciated workup as per GI (6) UTI (urinary tract infection) Current Visit: Yes Status: Acute Assessment and Plan: on abx therapy (7) A-fib Current Visit: Yes Status: Ruled-out Assessment and Plan: Cardiology input appreciated rhythm consistent with ectopic atrial rhythm currently in sinus rhythm continue tele monitoring no further intervention recommended (8) Hypokalemia Current Visit: Yes Status: Resolved Assessment and Plan: resolved continue to monitor electrolytes and replace as needed DVT Prophylaxis: heparin SQ - Time Spent with Patient Total time spent is greater than 50% in coordination of care (as documented) at patient's floor/unit and/or counseling patient: Plan of Care Discussed with: patient (patient/RN/case management) Internal Medicine: Result - Labs CBC & Chem 7: 06/02/18 04:54 06/02/18 04:54 Labs: Short CBC 06/02/18 Range/Units 04:54 WBC 6.1 (4.3-11.1) K/mcL Hgb 10.4 L (11.5-15.4) g/dL Hct 31.1 L (35.3-44.9) % Plt Count 236 (140-400) K/mcL Neutrophils # 3.6 (1.6-8.9) K/mcL BMP 06/02/18 04:54 Sodium 141 Potassium 3.8 Chloride 102 Carbon Dioxide 32 H BUN 2 L Creatinine 0.41 L Glucose 89 Calcium 9.0 Liver Function 06/02/18 Range/Units 04:54 Total Bilirubin 1.6 H (0.3-1.0) mg/dL AST 26 (13-39) Units/L ALT 81 H (7-52) Units/L Alkaline Phosphatase 208 H (34-104) Units/L Albumin 3.4 L (3.5-5.7) g/dL - ABG Interpretation ABG results: PT/INR, D-dimer PT 11.5 Seconds (9.4-12.1) 05/26/18 11:56 Consult Discharge Plan - Plan Instructions: Laparoscopic Cholecystectomy (DC) Additional Instructions: General Surgical Discharge Instructions 1. No pushing, pulling, or lifting greater than 15 lbs for 2-4 weeks (depending upon procedure). 2. You may shower beginning today, but no tub baths, soaking, or swimming for 2 weeks. 3. You may resume driving when you are off narcotics and are safe to react in a car. 4. Take ibuprofen every 8 hours for discomfort. If this does not relieve discomfort, you may take the as needed Percocet. Take narcotics as directed. Do not take more narcotics then directed and do not share your narcotics with any other person. Do not drink alcohol while on narcotics. 5. Take stool softeners (Colace) or a water based laxative (Miralax) while taking narcotics. You may hold for loose stools. 6. Report any fevers greater than 100.5F, increase abdominal discomfort, drain age that looks like pus, increased redness or pain at the surgical site, or any vomiting. 7. Report any pain in the calves, shortness of breath, or rapid heartbeat. 8. Follow-up in the office as directed. 9. If you were prescribed antibiotics, do not stop them without talking to your provider. Referrals: Elisa Steele MD [Primary Care Provider] - Tanesha Aj CNP [Advanced Practice Nurse] - 06/18/18 10:00 am (1) Cholecystitis with cholelithiasis Qualifiers: Cholelithiasis location: gallbladder Cholecystitis acuity: acute Biliary obstruction: with biliary obstruction Qualified Code(s): K80.01 - Calculus of gallbladder with acute cholecystitis with obstruction (6) UTI (urinary tract infection) Qualifiers: Urinary tract infection type: site unspecified Hematuria presence: without hematuria Qualified Code(s): N39.0 - Urinary tract infection, site not specified (7) A-fib Qualifiers: Atrial fibrillation type: unspecified Qualified Code(s): I48.91 - Unspecified atrial fibrillation
[2018-06-02] MEDS: Ondansetron 4 MG/2 ML VIAL IVP PRN (13:48)
[2018-06-02] MEDS ORDERED: *HR* Labetalol 20 MG/4 ML SYRINGE IVP PRN (16:37)
[2018-06-02] MEDS ORDERED: *HR* Promethazine 25 MG/ML VIAL IVP PRN (16:37)
[2018-06-02] MEDS ORDERED: Ketorolac 30 MG/ML VIAL IVP ONE (16:37)
[2018-06-02] MEDS ORDERED: *HR* OxyCODONE Immed Rel 5 MG TABLET PO PRN (16:37)
[2018-06-02] MEDS ORDERED: Ondansetron 4 MG/2 ML VIAL IVP ONE (16:37)
[2018-06-02] MEDS ORDERED: Acetaminophen IV 1,000 MG/100 ML INFUS..BTL IVPB ONE (16:41)
[2018-06-02] MEDS ORDERED: *HR* Midazolam HCl 2 MG/2 ML VIAL ONE (16:47)
[2018-06-02] MEDS ORDERED: *HR* Rocuronium Bromide 50 MG/5 ML VIAL ONE (16:47)
[2018-06-02] MEDS ORDERED: Lidocaine -MPF 2% 2 ML VIAL ONE (16:47)
[2018-06-02] MEDS ORDERED: *HR* Propofol 200 MG/20 ML VIAL IVP ONE (16:47)
[2018-06-02] MEDS ORDERED: Lidocaine -MPF 4% 5 ML AMPUL ONE (16:48)
[2018-06-02] MEDS ORDERED: Dexamethasone 4 MG/ML VIAL ONE (16:48)
[2018-06-02] MEDS ORDERED: KETAMINE HCL 50 MG/ML SYRINGE IV ONE (16:51)
[2018-06-02] MEDS ORDERED: Dexmedetomidine HCl 400 MCG/100 ML MLS IVC ONE (16:51)
[2018-06-02] MEDS ORDERED: *HR* FentaNYL (PF) 100 MCG/2 ML VIAL ONE ×2 (17:18→17:29)
[2018-06-02] MEDS ORDERED: Neostigmine Methylsulfate 3 MG/3 ML SYRINGE ONE (17:36)
[2018-06-02] MEDS ORDERED: Ketorolac 30 MG/ML VIAL ONE (17:38)
[2018-06-02] MEDS ORDERED: *HR* Magnesium Sulfate 1 GM/2 ML VIAL ONE (17:45)
--- NOTE | 2018-06-02 18:03 | Operative Note ---
Date of procedure: 06/02/18 Pre-op diagnosis: Acute cholecystitis Post-op diagnosis: same Procedure: Robotic cholecystectomy with ICG cholangiogram Anesthesia: TARYN Surgeon: Dickson Ochoa Was there an senior office support assistant sosa present: Yes Lead Qa Analyst: Billie Lucas Estimated blood loss (cc): 50 Specimen: Gallbladder Condition: stable Disposition: same day Procedure in Detail: After informed consent the patient was taken to the operating room. After adequate sedation anesthesia the abdomen was prepped and draped. A proper timeout was performed. Two towel clamps to place the umbilicus. A varies needle was placed at the umbilicus and a pneumo-peritoneum was created. A 12 mm incision was made at the umbilicus and a port was placed under direct visualization. A 5 mm incision was created in the left upper quadrant, followed by one in the right upper quadrant. There were 2 individual 5 mm cannulas then placed in the RUQ. An alligator clamp was then placed on the gallbladder was retracted anteriorly and cephalad. The infundibulum of the gallbladder was iden tified and the cystic duct was skeletonized. Once the structures were identified the cystic duct was clipped twice proximally and once distally. A cholangiogram was performed and found to have flow into the hepatic radicals and duodenum. Cystic duct was then transected. The gallbladder was then resected off the liver surface. The ICG was again utilized to identify any aberrant ductwork in the liver bed, and there was none noted. Once the gallbladder was fully resected from the liver surface, the liver was gently irrigated and suctioned dry. We ensured hemostasis prior to removing the gallbladder through the umbilical port. A 19-Liberian Dandre drain was placed in the right upper quadrant secondary to the intense inflammation that we encountered. Pneumoperitoneum was then evacuated. The 12 mm cannula site was closed with a 0-Vicryl suture in [id number] fashion. The port sites were injected with half percent Marcaine 30 mL. The skin was closed with 4-0 Vicryl suture and Dermabond. All instrument counts and needle counts were correct at the end of the case. The pt was taken to recovery in stable condition.
[2018-06-02] MEDS: *HR* HYDROmorphone (PF) 1 MG/ML SYRINGE IVP PRN ×2 (18:16→18:25)
[2018-06-02] MEDS ORDERED: Ringers Solution, Lactated 1,000 ML ONE (18:36)
--- NOTE | 2018-06-02 18:53 | Anesthesia Evaluation Post Op ---
Date of Encounter: 06/02/18 Time of Encounter: 18:52 - Vital Signs Vital Signs: Last Vital Signs Temp 98.7 F 06/02/18 18:43 Pulse 72 06/02/18 18:43 Resp 12 06/02/18 18:43 BP 127/81 06/02/18 18:43 Pulse Ox 95 06/02/18 18:43 - Lungs Lungs: Clear Ascult./Percussion - Airway Airway: Non-obstructed - Cardiovascular Regular Rate - Mental Status Mental Status: Alert & Oriented, Answers Appropriately - Pain Pain Scale: 4 - Nausea Vomiting Nausea Vomiting: Not Present - Hydration Hydration: Ice chips - Discharge PostOp Status: Transfer Patient to floor
[2018-06-02] MEDS ORDERED: Ondansetron 4 MG/2 ML VIAL IVP PRN (19:11)
[2018-06-02] MEDS ORDERED: Naloxone 0.4 MG/ML INJ IVP PRN (19:11)
[2018-06-02] MEDS ORDERED: Triamcinolone Acet Dentl Paste 5 GM TUBE TP PRN (19:11)
[2018-06-02] MEDS ORDERED: Nitroglycerin 0.4 MG TAB.SUBL SL PRN (19:11)
[2018-06-02] MEDS ORDERED: OXYCODONE Oral CONC 10 MG/0.5 ML ORAL.SYG SL PRN (19:11)
[2018-06-03] MEDS ORDERED: Acetaminophen IV 1,000 MG/100 ML INFUS..BTL IVPB ONE (00:33)
--- NOTE | 2018-06-03 00:35 | Event Note ---
Date of Encounter: 06/03/18 Time of Encounter: 12:30 Pts. Oxycodone DCd at 00:30 d/t pt. being on Subutex. IVPB Ofirmev ordered for pts. current pain. Will continue to monitor pt. and pain level closely overnight.
[2018-06-03] MEDS: Piperacillin/Tazobactam 3.375 GM in 0.9 % Sodium Chloride Mini Bag 100 ML IVPB SCH ×3 (02:04→19:02)
[2018-06-03] MEDS ORDERED: traMADol 50 MG TABLET PO ONE (04:35)
[2018-06-03] MEDS: *HR* Heparin 5,000 UNIT/ML VIAL SQ SCH ×2 (05:18→18:59)
[2018-06-03 05:25] LABS: Basophils % 0.1 %; Hematocrit 30.3 % (35.3-44.9); Hemoglobin 10.1 g/dL (11.5-15.4); Immature Granulocytes % 0.4 % (0-4); Lymphocytes % 6.5 %; Mean Corpuscular HGB Conc 33.3 g/dL (31.6-35.5); Mean Corpuscular Hemoglobin 28.9 pg (28.0-33.3); Mean Corpuscular Volume 86.6 fL (83.0-100.0); Mean Platelet Volume 10.5 fL (9.4-12.4); Monocytes # 0.3 K/mcL (0.0-1.3); Monocytes % 1.9 %; Neutrophils # 11.8 K/mcL (1.6-8.9); Platelet Count 389 K/mcL (140-400); Red Cell Distribution Width 13.8 % (11.5-14.5); Segmented Neutrophils % 91.1 %
[2018-06-03 05:28] LABS: Lymphocytes # 0.9 K/mcL (0.6-4.6)
[2018-06-03 05:49] LABS: Alanine Aminotransferase 68 Units/L (7-52); Albumin 3.4 g/dL (3.5-5.7); Albumin/Globulin Ratio 1.1 (1.1-2.2); Alkaline Phosphatase 190 Units/L (34-104); Aspartate Amino Transferase 34 Units/L (13-39); BUN/Creatinine Ratio 15 (6-26); Bilirubin,Total 1.5 mg/dL (0.3-1.0); Blood Urea Nitrogen 6 mg/dL (6-20); Calcium 9.1 mg/dL (8.6-10.3); Carbon Dioxide 30 mEq/L (23-29); Chloride 100 mEq/L (98-107); Globulin 3.2 g/dL (2.4-3.5); Glucose 179 mg/dL (70-105); Magnesium 1.9 mg/dL (1.6-2.6); Osmolality,Calculated 288 (280-300); Phosphorous 4.2 mg/dL (2.7-4.5); Potassium 3.5 mEq/L (3.5-5.1); Sodium 138 mEq/L (136-145); Total Protein 6.6 g/dL (6.4-8.9); eGFR For Non-African Americans > 60 (> 60)
[2018-06-03] MEDS ORDERED: OXYCODONE Oral CONC 10 MG/0.5 ML ORAL.SYG SL PRN (07:57)
[2018-06-03] MEDS: FLUoxetine 20 MG CAPSULE PO SCH (08:21)
[2018-06-03] MEDS: *HR* Buprenorphine HCl 2 MG SUBLINGUAL TABLET SL SCH (08:21)
[2018-06-03] MEDS ORDERED: FLUoxetine 20 MG CAPSULE PO SCH (09:00)
--- NOTE | 2018-06-03 09:35 | General Surgery Progress Note ---
Date of Encounter: 06/03/18 Time of Encounter: 09:15 - Assessment and Plan (1) Cholecystitis with cholelithiasis Current Visit: Yes Status: Acute Date of procedure: 06/02/18 Pre-op diagnosis: Acute cholecystitis Post-op diagnosis: same Procedure: Robotic cholecystectomy with ICG cholangiogram Anesthesia: TARYN Surgeon: Dickson Ochoa POD #1 as above. She is on subutex. We will stop Oxycodone, continue her home meds, add schedule Ofirmev and Toradol for 24-48 hours pending response. Plan: Continue supportive care and discomfort management while awaiting full return of bowel function continue IV antibiotics for another 24 to 48 hours Continue G.I. and DVT prophylaxis Incentive spirometry 10 times every hour while awake Out of bed to chair TID, do not offer meal trays while in the bed Activity as tolerated Apply ice 20 minutes on 20 minutes off as needed continue KAN care. Patient states her mom and sister will be available to help her at home. We will defer recommendation of home health given. Qualifiers: Cholelithiasis location: gallbladder Cholecystitis acuity: acute Biliary obstruction: with biliary obstruction Qualified Code(s): K80.01 - Calculus of gallbladder with acute cholecystitis with obstruction Subjective Patient reports: still having pain, voiding w/o difficulty, flatus, afebrile Narrative: Denies nausea or vomiting. Reports right upper quadrant pain that is different than prior to surgery but worse than she expected. Objective Vital Signs - Last 8 Hours Temp Pulse Resp BP Pulse Ox 06/03/18 07:50 97.6 F 71 16 133/85 93 06/03/18 03:36 97.5 F L 77 16 136/86 92 Intake and Output 06/02/18 06/03/18 06/03/18 23:59 07:59 15:59 Intake Total 200 / 200 Output Total 540 / 540 220 / 220 Balance -540 / -540 -20 / -20 Intake: IV Fluids 200 / 200 Ofirmev 1,000 mg/100 ml 1,000 100 / 100 mg In 100 ml @ 400 mls/hr IVPB ONCE ONE Rx#:[id number] Zosyn 3.375 GM In 0.9 % Sodium 100 / 100 Chloride (Mini-Bag +) 100 ML @ 25 mls/hr IVPB Q8H [facility] Rx#: [id number] Output: Urine 400 / 400 200 / 200 Estimated Blood Loss 50 / 50 Wound Drainage 90 / 90 / 20 Right Abdomen 35 / 35 / Other: Weight 77.8 kg Patient Weight 06/03/18 23:59 Weight 77.8 kg - General physical appearance moderate distress (related to pain) - ENT poor intermediate, atraumatic, normocephalic - Neck Neck exam: trachea midline - Respiratory other (Decreased, patient states she cannot take the breath due to pain, otherwise clear) - Cardiovascular Cardiovascular exam: Present: RRR - Abdomen Abdomen: Present: bowel sounds present, soft, tender, wound (KAN site is with some straddling on the dressing. There is approximately 30 ML's of SS output) Abdominal Tenderness: RUQ - Incision Incision: Present: clean and dry, intact - Integumentary no rash - Neurologic normal coordination, normal sensation - Musculoskeletal normal gait, normal posture - Psychiatric oriented to time, oriented to person, oriented to place, speech is normal, giana ry intact - Labs 06/03/18 04:33 06/03/18 04:33 Diabetes panel 06/03/18 Range/Units 04:33 Sodium 138 (136-145) mEq/L Potassium 3.5 (3.5-5.1) mEq/L Chloride 100 (98-107) mEq/L Carbon Dioxide 30 H (23-29) mEq/L BUN 6 (6-20) mg/dL Creatinine 0.41 L (0.60-1.20) mg/dL Glucose 179 H (70-105) mg/dL Calcium 9.1 (8.6-10.3) mg/dL AST 34 (13-39) Units/L ALT 68 H (7-52) Units/L Alkaline Phosphatase 190 H (34-104) Units/L Albumin 3.4 L (3.5-5.7) g/dL Calcium panel 06/03/18 Range/Units 04:33 Calcium 9.1 (8.6-10.3) mg/dL Phosphorus 4.2 (2.7-4.5) mg/dL Albumin 3.4 L (3.5-5.7) g/dL Pituitary panel 06/03/18 Range/Units 04:33 Sodium 138 (136-145) mEq/L Potassium 3.5 (3.5-5.1) mEq/L Chloride 100 (98-107) mEq/L Carbon Dioxide 30 H (23-29) mEq/L BUN 6 (6-20) mg/dL Creatinine 0.41 L (0.60-1.20) mg/dL Glucose 179 H (70-105) mg/dL Calcium 9.1 (8.6-10.3) mg/dL Adrenal panel 06/03/18 Range/Units 04:33 Sodium 138 (136-145) mEq/L Potassium 3.5 (3.5-5.1) mEq/L Chloride 100 (98-107) mEq/L Carbon Dioxide 30 H (23-29) mEq/L BUN 6 (6-20) mg/dL Creatinine 0.41 L (0.60-1.20) mg/dL Glucose 179 H (70-105) mg/dL Calcium 9.1 (8.6-10.3) mg/dL Total Bilirubin 1.5 H (0.3-1.0) mg/dL AST 34 (13-39) Units/L ALT 68 H (7-52) Units/L Alkaline Phosphatase 190 H (34-104) Units/L Albumin 3.4 L (3.5-5.7) g/dL Consult Discharge Plan - Plan Instructions: Laparoscopic Cholecystectomy (DC), Seth-Braxton Drain Care (DC) Additional Instructions: General Surgical Discharge Instructions 1. No pushing, pulling, or lifting greater than 15 lbs for 2-4 weeks (depending upon procedure). 2. You may shower beginning today, but no tub baths, soaking, or swimming for 2 weeks. 3. You may resume driving when you are off narcotics and are safe to react in a car. 4. Take ibuprofen every 8 hours for discomfort. If this does not relieve discomfort, you may take the as needed Percocet. Take narcotics as directed. Do not take more narcotics then directed and do not share your narcotics with any other person. Do not drink alcohol while on narcotics. 5. Take stool softeners (Colace) or a water based laxative (Miralax) while taking narcotics. You may hold for loose stools. 6. Report any fevers greater than 100.5F, increase abdominal discomfort, drainage that looks like pus, increased redness or pain at the surgical site, or any vomiting. 7. Report any pain in the calves, shortness of breath, or rapid heartbeat. 8. Follow-up in the office as directed. 9. If you were prescribed antibiotics, do not stop them without talking to your provider. Referrals: Elisa Steele MD [Primary Care Provider] - Tanesha Aj CNP [Advanced Practice Nurse] - 06/11/18 11:00 am Prescriptions: Amoxicillin/Clavulanate [Augmentin] 875 mg PO BIDWM 7 Days #14 tablet Docusate Sodium [Colace] 100 mg PO BID PRN #30 capsule PRN Reason: Contstipation Ibuprofen 800 mg PO Q8H PRN #30 tablet PRN Reason: Postsurgical pain
[2018-06-03] MEDS: Ketorolac 15 MG/ML VIAL IVP SCH ×2 (11:33→17:27)
[2018-06-03] MEDS: Acetaminophen IV 1,000 MG/100 ML INFUS..BTL IVPB SCH ×2 (11:41→17:29)
--- NOTE | 2018-06-03 14:34 | Internal Med Progress Note ---
Hospitalist Progress Note - Encounter Date of Encounter: 06/03/18 Time of Encounter: 12:35 - Subjective Interval History: Pt seen and examined with family present at bedside. Pt is s/p laproscopic cholecystectomy REAGAN drain in place pain appropriately controlled will continue IV abx for another 24 hours, tentative d/c in am - Exam Vitals: Temp Pulse Resp BP Pulse Ox 97.6 F 71 16 133/85 93 06/03/18 07:50 06/03/18 07:50 06/03/18 07:50 06/03/18 07:50 06/03/18 07:50 Exam: General: No acute distress, AAO x 3 HEENT: EOMI, NC/AT, no scleral icterus Respiratory: Clear to auscultate bilaterally, no wheezing, no rales Cardiovascular: Regular, Rate, Rhythm, No murmurs GI: Soft,nontender, non distended, normal bowel sounds, reagan drain in place, surgical site clean Ext: No edema, no tenderness, positive pulses Neuro: AAO x 3, no focal deficits - Assessment and Plan (1) Cholecystitis with cholelithiasis Current Visit: Yes Status: Acute Assessment and Plan: MRCP reviewed, obstructing stone on CBD GI on board and evaluation appreciated s/p ERCP on 05/26/[address] abd/pelvis reviewed, findings consistent with acute pancreatitis continue Zosyn pain control general surgery evaluation appreciated s/p laproscopic cholecystectomy on 06/02/18 POD #1, continue post op as per surgery (2) Jaundice Current Visit: Yes Status: Resolved Assessment and Plan: as listed above (3) History of heroin use Current Visit: No Status: Chronic Assessment and Plan: Patient with history of 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 Currently on Subutex (4) Elevated transaminase level Current Visit: Yes Status: Resolved Assessment and Plan: Likely secondary to choledocholithiasis GI on board, evaluation appreciated improving (5) Hep C w/o coma, chronic Current Visit: Yes Status: Chronic Assessment and Plan: GI on board, evaluation appreciated workup as per GI (6) UTI (urinary tract infection) Current Visit: Yes Status: Acute Assessment and Plan: on abx therapy (7) A-fib Current Visit: Yes Status: Ruled-out Assessment and Plan: Cardiology input appreciated rhythm consistent with ectopic atrial rhythm currently in sinus rhythm continue tele monitoring no further intervention recommended (8) Hypokalemia Current Visit: Yes Status: Resolved Assessment and Plan: resolved continue to monitor electrolytes and replace as needed DVT Prophylaxis: heparin SQ - Time Spent with Patient Total time spent is greater than 50% in coordination of care (as documented) at patient's floor/unit and/or counseling patient: Plan of Care Discussed with: patient (patient/family/RN/case management/pharmacist) Internal Medicine: Result - Labs CBC & Chem 7: 06/03/18 04:33 06/03/18 04:33 Labs: Short CBC 06/03/18 Range/Units 04:33 WBC 13.0 H D (4.3-11.1) K/mcL Hgb 10.1 L (11.5-15.4) g/dL Hct 30.3 L (35.3-44.9) % Plt Count 389 D (140-400) K/mcL Neutrophils # 11.8 H (1.6-8.9) K/mcL BMP 06/03/18 04:33 Sodium 138 Potassium 3.5 Chloride 100 Carbon Dioxide 30 H BUN 6 Creatinine 0.41 L Glucose 179 H Calcium 9.1 Liver Function 06/03/18 Range/Units 04:33 Total Bilirubin 1.5 H (0.3-1.0) mg/dL AST 34 (13-39) Units/L ALT 68 H (7-52) Units/L Alkaline Phosphatase 190 H (34-104) Units/L Albumin 3.4 L (3.5-5.7) g/dL - ABG Interpretation ABG results: PT/INR, D-dimer PT 11.5 Seconds (9.4-12.1) 05/26/18 11:56 Consult Discharge Plan - Plan Instructions: Seth-Braxton Drain Care (DC), Laparoscopic Cholecystectomy (DC) Additional Instructions: General Surgical Discharge Instructions 1. No pushing, pulling, or lifting greater than 15 lbs for 2-4 weeks (depending upon procedure). 2. You may shower beginning today, but no tub baths, soaking, or swimming for 2 weeks. 3. You may resume driving when you are off narcotics and are safe to react in a car. 4. Take ibuprofen every 8 hours for discomfort. If this does not relieve discomfort, you may take the as needed Percocet. Take narcotics as directed. Do not take more narcotics then directed and do not share your narcotics with any other person. Do not drink alcohol while on narcotics. 5. Take stool softeners (Colace) or a water based laxative (Miralax) while taking narcotics. You may hold for loose stools. 6. Report any fevers greater than 100.5F, increase abdominal discomfort, drainage that looks like pus, increased redness or pain at the surgical site, or any vomiting. 7. Report any pain in the calves, shortness of breath, or rapid heartbeat. 8. Follow-up in the office as directed. 9. If you were prescribed antibiotics, do not stop them without talking to your provider. Referrals: Elisa Steele MD [Primary Care Provider] - Tanesha Aj CNP [Advanced Practice Nurse] - 06/11/18 11:00 am Prescriptions: Amoxicillin/Clavulanate [Augmentin] 875 mg PO BIDWM 7 Days #14 tablet Docusate Sodium [Colace] 100 mg PO BID PRN #30 capsule PRN Reason: Contstipation Ibuprofen 800 mg PO Q8H PRN #30 tablet PRN Reason: Postsurgical pain (1) Cholecystitis with cholelithiasis Qualifiers: Cholelithiasis location: gallbladder Cholecystitis acuity: acute Biliary obstruction: with biliary obstruction Qualified Code(s): K80.01 - Calculus of gallbladder with acute cholecystitis with obstruction (6) UTI (urinary tract infection) Qualifiers: Urinary tract infection type: site unspecified Hematuria presence: without hematuria Qualified Code(s): N39.0 - Urinary tract infection, site not specified (7) A-fib Qualifiers: Atrial fibrillation type: unspecified Qualified Code(s): I48.91 - Unspecified atrial fibrillation
[2018-06-04] MEDS: Acetaminophen IV 1,000 MG/100 ML INFUS..BTL IVPB SCH ×2 (00:02→05:52)
[2018-06-04] MEDS: Ketorolac 15 MG/ML VIAL IVP SCH ×3 (00:03→12:07)
[2018-06-04] MEDS: Piperacillin/Tazobactam 3.375 GM in 0.9 % Sodium Chloride Mini Bag 100 ML IVPB SCH ×2 (01:28→08:27)
[2018-06-04 04:41] LABS: BUN/Creatinine Ratio 16 (6-26); Blood Urea Nitrogen 7 mg/dL (6-20); Calcium 8.4 mg/dL (8.6-10.3); Carbon Dioxide 30 mEq/L (23-29); Chloride 105 mEq/L (98-107); Glucose 95 mg/dL (70-105); Magnesium 1.6 mg/dL (1.6-2.6); Osmolality,Calculated 292 (280-300); Phosphorous 3.4 mg/dL (2.7-4.5); Potassium 3.6 mEq/L (3.5-5.1); Sodium 142 mEq/L (136-145); eGFR For Non-African Americans > 60 (> 60)
[2018-06-04 04:45] LABS: Basophils % 0.4 %; Eosinophils # 0.1 K/mcL (0.0-0.6); Eosinophils % 0.8 %; Hematocrit 28.1 % (35.3-44.9); Hemoglobin 9.7 g/dL (11.5-15.4); Immature Granulocytes % 0.8 % (0-4); Immature Platelets 3.2 % (1.1-6.1); Lymphocytes % 25.4 %; Mean Corpuscular HGB Conc 34.5 g/dL (31.6-35.5); Mean Corpuscular Hemoglobin 29.9 pg (28.0-33.3); Mean Corpuscular Volume 86.7 fL (83.0-100.0); Mean Platelet Volume 11.3 fL (9.4-12.4); Monocytes # 0.6 K/mcL (0.0-1.3); Monocytes % 5.5 %; Platelet Count 300 K/mcL (140-400); Red Blood Count 3.24 M/mcL (3.82-4.97); Red Cell Distribution Width 14.2 % (11.5-14.5); Segmented Neutrophils % 67.1 %
[2018-06-04 05:28] LABS: Lymphocytes # 2.8 K/mcL (0.6-4.6); Neutrophils # 7.5 K/mcL (1.6-8.9)
[2018-06-04 05:29] LABS: Platelet Estimate Normal (Normal)
[2018-06-04] MEDS: *HR* Heparin 5,000 UNIT/ML VIAL SQ SCH (05:51)
[2018-06-04] MEDS: FLUoxetine 20 MG CAPSULE PO SCH (08:26)
[2018-06-04] MEDS: *HR* Buprenorphine HCl 2 MG SUBLINGUAL TABLET SL SCH (08:26)
[2018-06-04 10:56] VITALS: BP 132/77
--- NOTE | 2018-06-04 11:00 | Discharge Summary ---
- NOTES TO OUTPATIENT PROVIDER Notes to Outpatient Provider: Pt was admitted for acute cholecystitis with choledocholithiais and underwent ERCP and laproscopic cholecystectomy Orders not resulted at time of discharge: Pending orders 05/26/18 11:56 Hepatitis C Qnt Reflx Genotype Routine 06/02/18 17:50 Surgical Pathology [PTH] Routine Date of Encounter: 06/04/18 Time of Encounter: 09:46 - Discharge Diagnosis (1) Cholecystitis with cholelithiasis Priority: Primary Status: Acute Qualifiers: Cholelithiasis location: gallbladder Cholecystitis acuity: acute Biliary obstruction: with biliary obstruction Qualified Code(s): K80.01 - Calculus of gallbladder with acute cholecystitis with obstruction (2) Jaundice Priority: Secondary Status: Resolved (3) History of heroin use Priority: Secondary Status: Chronic (4) Elevated transaminase level Priority: Secondary Status: Resolved (5) Hep C w/o coma, chronic Priority: Secondary Status: Chronic (6) UTI (urinary tract infection) Priority: Secondary Status: Resolved Qualifiers: Urinary tract infection type: site unspecified Hematuria presence: without hematuria Qualified Code(s): N39.0 - Urinary tract infection, site not specified (7) A-fib Priority: Secondary Status: Ruled-out Qualifiers: Atrial fibrillation type: unspecified Qualified Code(s): I48.91 - Unspecified atrial fibrillation (8) Hypokalemia Priority: Secondary Status: Resolved Hospital course: Ms. Hoover is a 38 year old female with PMH of IV drug abuse and hepatitis C who was admitted for acute cholecystitis with choledocholithiasis. Patient was seen by gastroenterology and underwent ERCP with stent placement in common bile duct. Patient was continued on IV antibiotics and was further evaluated by general surgery. Patient underwent laparoscopic cholecystectomy on 06/02/2018. Patient had an uncomplicated hospital course and has been closely followed by general surgery. Patient is currently medically stable for discharge and will be followed by PCP, GI, surgery as an outpatient. Patient was seen and examined on the day of discharge. Patient denies any pain or discomfort and wishes to return to home today. Patient is currently on Subutex therapy, and I called pt' s primary care prescribing Subutex therapy, and updated them on her hospitalization. Patient will be discharged home today. Patient will be discharged with REAGAN drain in place. RN has provided instructions to the patient and family in regards to care of the REAGAN drain. Patient demonstrates understanding and agrees with the discharge care and plan Discharge discussed with: patient, nurse, social work, case management - Time Spent with Patient Total time spent providing and/or coordinating discharge services: Time spent: Greater than 30 minutes - Discharge Medications Prescriptions: New Docusate Sodium [Colace] 100 mg PO BID PRN #30 capsule PRN Reason: Contstipation Ibuprofen 800 mg PO Q8H PRN #30 tablet PRN Reason: Postsurgical pain Amoxicillin/Clavulanate [Augmentin] 875 mg PO BIDWM 7 Days #14 tablet Calcium Carbonate [Tums] 1,000 mg PO Q4HR PRN tab.chew PRN Reason: Heartburn Continue Buprenorphine HCl [Subutex] 10 mg SL DAILY FLUoxetine HCl [Prozac] 20 mg PO DAILY Home Medications: Buprenorphine HCl [Subutex] 10 mg SL DAILY 05/25/18 [History] FLUoxetine HCl [Prozac] 20 mg PO DAILY 05/25/18 [History] Amoxicillin/Clavulanate [Augmentin] 875 mg PO BIDWM 7 Days #14 tablet 06/03/18 [Rx] Docusate Sodium [Colace] 100 mg PO BID PRN #30 capsule 06/03/18 [Rx] Ibuprofen 800 mg PO Q8H PRN #30 tablet 06/03/18 [Rx] Calcium Carbonate [Tums] 1,000 mg PO Q4HR PRN tab.chew 06/04/18 [Rx] Allergies/Adverse Reactions: Allergy/AdvReac Type Severity Reaction Status Date / Time No Known Allergies Allergy Verified 08/17/16 12:28 Date of admission: 05/25/18 19:37 Primary care physician: Elisa Steele MD Consults: 05/25/18 18:31 Consult to Gastroenterology [CONS] Stat Consulting Provider: Gastroenterology [facility] Reason for Consult: Obstructive jaundice, discussed with Dr. Melo Time Notified: 21:45 Call Completed: Yes 05/31/18 08:14 Consult to Surgery [CONS] Routine Consulting Provider: Surgery [facility] Surgical Reason for Consult: cholecystitis, evaluation for laproscopic cholecystectomy Call Completed: Yes 05/31/18 11:09 Consult to Cardiology [CONS] Routine Comment: Consulting Provider: Cardiology [facility] Reason for Consult: new onset Afib cardiac clearance for laproscopic cholecystectomy Call Completed: Yes Discharging clinician: Geena Ramos Anticipated date of discharge: 06/04/18 - Constitutional Vitals: Temp Pulse Resp BP Pulse Ox 98.3 F 91 16 132/77 91 06/04/18 10:48 06/04/18 10:48 06/04/18 10:48 06/04/18 10:48 06/04/18 10:48 General appearance: Present: A&O X 3 Exam: General: No acute distress, AAO x 3 HEENT: EOMI, NC/AT, no scleral icterus Respiratory: Clear to auscultate bilaterally, no wheezing, no rales Cardiovascular: Regular, Rate, Rhythm, No murmurs GI: Soft,nontender, non distended, normal bowel sounds, reagan drain in place, surgical site clean Ext: No edema, no tenderness, positive pulses Neuro: AAO x 3, no focal deficits - Patient Status Disposition: Home, Self-Care Condition: Good Functional capacity at discharge: independent ambulation Overall status at discharge: patient is back to baseline - Discharge Instructions Instructions: Ibuprofen (By mouth), Amoxicillin/Clavulanate Potassium (By mouth), Laxative, Stool Softeners (By mouth), Seth-Braxton Drain Care (DC), Laparoscopic Cholecystectomy (DC), Acute Wound Care (DC) Follow Up With: Elisa Steele MD [Primary Care Provider] - 06/07/18 10:30 am (Follow up as scheduled. ) Wang Calzada CNP [Advanced Practice Nurse] - (Web-requested, the office will call the patient to schedule a follow up appointment. ) Tanesha Aj CNP [Advanced Practice Nurse] - 06/11/18 11:00 am (Follow up as scheduled. ) Additional Instructions: General Surgical Discharge Instructions 1. No pushing, pulling, or lifting greater than 15 lbs for 2-4 weeks (depending upon procedure). 2. You may shower beginning today, but no tub baths, soaking, or swimming for 2 weeks. 3. You may resume driving when you are off narcotics and are safe to react in a car. 4. Take ibuprofen every 8 hours for discomfort. If this does not relieve discomfort, you may take the as needed Percocet. Take narcotics as directed. Do not take more narcotics then directed and do not share your narcotics with any other person. Do not drink alcohol while on narcotics. 5. Take stool softeners (Colace) or a water based laxative (Miralax) while taking narcotics. You may hold for loose stools. 6. Report any fevers greater than 100.5F, increase abdominal discomfort, drainage that looks like pus, increased redness or pain at the surgical site, or any vomiting. 7. Report any pain in the calves, shortness of breath, or rapid heartbeat. 8. Follow-up in the office as directed. 9. If you were prescribed antibiotics, do not stop them without talking to your provider. Daily REAGAN Drain Care: 1. Remove dressings. Shower with antibacterial soap. 2. Do not let the REAGAN drain dangle from your body. Use the safety pin to secure to your clothing. Secure the REAGAN to a lanyard or other type of long necklace when you shower. 3. Replace drain gauze and taped to secure. 4. Record the output from your REAGAN bulb (at least once daily) on the form provided and bring this with you to your follow-up appointment. 5. Keep the REAGAN drain to suction (squeeze the bulb and replace the cap while squeezing). 6. Strip the lines twice daily (hold onto the line as close to the body as you can, then with the other hand push the contents of the line into the REAGAN bulb). -Please follow-up with your primary care physician and gastroenterology within 1 week after your discharge from the hospital -Please continue all your home medications as prescribed by your primary care physician - Diet and Activity Activity: resume usual activities as tolerated Diet: low fat, low cholesterol
== END 2018-06-04 14:17 | disposition home or self-care (01) | DRG 263 ==
LOC: 3ANU 10:44 → EMEROOARM 10:44 → SUATTDRO 19:37 → OBSVTOIN 19:37 → 3ANU 20:17
PROVIDERS: ADMIT Internal Medicine; ATTEND Internal Medicine

== ENCOUNTER 2018-06-21 10:45 | Inpatient (IN) ==
[2018-06-21] MEDS ORDERED: Ondansetron 4 MG/2 ML VIAL IVP ONE ×2 (11:16→14:39)
[2018-06-21] MEDS ORDERED: *HR* FentaNYL (PF) 100 MCG/2 ML VIAL IVP ONE (11:16)
[2018-06-21] MEDS ORDERED: 0.9 % Sodium Chloride 1,000 ML IVC ONE ×2 (11:16→11:44)
--- NOTE | 2018-06-21 11:17 | Emergency Department Note ---
Disposition Clinical Impression: Abdominal pain Qualifiers: Abdominal location: right upper quadrant Qualified Code(s): R10.11 - Right upper quadrant pain Disposition: Admitted As Inpatient Condition: Fair General Adult HPI - General Chief complaint: ED Nausea/Vomiting/Diarrhea Stated complaint: NVD Time Seen by Provider: 06/21/18 10:59 Nursing Notes Reviewed: Yes Vital Signs Reviewed: Yes - History of Present Illness HPI Narrative: 38-year-old female presents emergency Department concern for right upper quadrant abdominal pain, nausea, vomiting for last few days. Patient states that she had a cholecystectomy performed 2 weeks ago. Reports that she has had intermittent issues since, but things have gotten a lot worse. She is not able to keep anything down in the last 48 hours. Denies any dysuria, urinary urgency, urgency. Reports subjective fevers and chills. Denies cough. Pain Scale: 8 - Related Data Home Medications Medication Instructions Recorded Confirmed Buprenorphine HCl [Subutex] 10 mg SL DAILY 05/25/18 06/21/18 FLUoxetine HCl [Prozac] 20 mg PO DAILY 05/25/18 06/21/18 Previous Rx's Medication Instructions Recorded Docusate Sodium [Colace] 100 mg PO BID PRN #30 capsule 06/03/18 Allergies Allergy/AdvReac Type Severity Reaction Status Date / Time No Known Allergies Allergy Verified 06/21/18 10:47 All systems ED: reviewed and negative except as stated. Review of Systems: As Per HPI Constitutional: Reports: fever, chills Gastrointestinal: Reports: abdominal pain, nausea, vomiting Genitourinary: Denies: urgency, dysuria, frequency Musculoskeletal: Denies: back pain Integumentary: Reports: rash Past Medical History - Past Medical History Medical history: Reports: GERD, hepatitis, other Surgical history: Reports: other Psychiatric history: Reports: anxiety, depression - Social History Smoking Status: Former smoker Smokeless Tobacco Status: No Alcohol use: Reports: none Drug use: Reports: marijuana Physical Exam - General General appearance: alert - Head Head exam: normocephalic - Eye Eye exam: Present: EOMI - ENT ENT exam: mucous membranes dry - Neck Neck exam: Present: trachea midline - Chest Chest inspection: Present: symmetric chest wall rise - Respiratory Respiratory exam: Present: normal lung sounds bilaterally. Absent: respiratory distress, accessory muscle use - Cardiovascular Cardiovascular exam: Present: normal rhythm, tachycardia, normal heart sounds - Abdominal Exam Abdominal exam: Present: soft, tenderness. Absent: distention, guarding, rebound, rigidity Abdominal tenderness: Present: RLQ, mild - Extremities Exam Extremities exam: Present: normal capillary refill - Back Exam Back exam: Present: full ROM. Absent: CVA tenderness (R), CVA tenderness (L) - Neurological Exam Neurological exam: Present: alert, oriented X3 - Psychiatric Psychiatric exam: Present: normal affect, normal mood - Skin Skin exam: Present: warm, dry, intact, normal color. Absent: rash Course Vital Signs Temperature 98.0 F 06/21/18 10:47 Pulse Rate 128 06/21/18 10:47 Respiratory Rate 18 06/21/18 10:47 Blood Pressure 122/87 06/21/18 10:47 O2 Sat by Pulse Oximetry 97 06/21/18 10:47 Temperature 98.0 F 06/21/18 10:47 Pulse Rate 103 06/21/18 15:17 Respiratory Rate 18 06/21/18 15:17 Blood Pressure 118/81 06/21/18 15:17 O2 Sat by Pulse Oximetry 100 06/21/18 15:17 Oxygen Delivery Oxygen Delivery Room Air Medical Decision Making - MDM Narrative Medical decision making narrative: 38 year old female presents to the emergency department with concern for nausea, vomiting, upper quadrant pain. Patient's labs were within normal limits. She was given 2 L of fluid as she was tachycardic. CT scan of abdomen and pelvis revealed possibility of abscess near surgical site. I spoke with our general surgeon education coordinator, she stated that she would follow the patient on the the floor after admission to the hospitalist. Also requested that we obtain a HIDA scan out of concern for possible bile leak. Patient was still much better after pain medication and nausea medication. She appeared very comfortable at time of admission. - Lab Data Result diagrams: 06/21/18 11:39 06/21/18 11:39 Lab Results 06/21/18 06/21/18 06/21/18 Range/Units 11:24 11:24 11:39 WBC 6.3 (4.3-11.1) K/mcL RBC 5.29 H (3.82-4.97) M/mcL Hgb 15.2 (11.5-15.4) g/dL Hct 45.0 H (35.3-44.9) % MCV 85.1 (83.0-100.0) fL MCH 28.7 (28.0-33.3) pg MCHC 33.8 (31.6-35.5) g/dL RDW 13.2 (11.5-14.5) % Plt Count 313 (140-400) K/mcL MPV 10.4 (9.4-12.4) fL Immature Gran % 0.2 (0-4) % Seg Neutrophils % 65.3 % Lymphocytes % 24.9 % Monocytes % 8.1 % Eosinophils % 1.0 % Basophils % 0.5 % Neutrophils # 4.1 (1.6-8.9) K/mcL Lymphocytes # 1.6 (0.6-4.6) K/mcL Monocytes # 0.5 (0.0-1.3) K/mcL Eosinophils # 0.1 (0.0-0.6) K/mcL Basophils # 0.0 (0.0-0.2) K/mcL Sodium (136-145) mEq/L Potassium (3.5-5.1) mEq/L Chloride (98-107) mEq/L Carbon Dioxide (23-29) mEq/L BUN (6-20) mg/dL Creatinine (0.60-1.20) mg/dL Est GFR ( Amer) (> 60) Est GFR (Non-Af Amer) (> 60) BUN/Creatinine Ratio (6-26) Glucose (70-105) mg/dL Calculated Osmolality (280-300) Lactic Acid (0.5-2.2) mmol/L Calcium (8.6-10.3) mg/dL Total Bilirubin (0.3-1.0) mg/dL AST ALT (7-52) Units/L Alkaline Phosphatase (34-104) Units/L Troponin I (< 0.04) ng/mL Serum Total Protein (6.4-8.9) g/dL Albumin (3.5-5.7) g/dL Globulin (2.4-3.5) g/dL Albumin/Globulin Ratio (1.1-2.2) Lipase (11-82) Units/L Urine Color Dark Yellow (Yellow) Urine Clarity Cloudy A (Clear) Urine pH 6.0 (5.0-8.0) pH Units Ur Specific [place] 1.023 (1.010-1.025) Urine Protein 30 H (Neg-Trace) mg/dL Urine Glucose (UA) Normal (Normal) mg/dL Urine Ketones 80 H (Negative) mg/dL Urine Blood Negative (Negative) Urine Nitrite Positive A (Negative) Urine Bilirubin Moderate H (Negative) Urine Urobilinogen Normal (Normal) mg/dL Ur Leukocyte Esterase Small H (Negative) Urine Microscopic RBC 0-3 (0-3) per hpf Urine Microscopic WBC 15-30 H (0-3) per hpf Ur Squamous Epith Cells Many H (None-Few) per lpf Urine Bacteria Few (None-Few) per hpf Hyaline Casts Moderate H (None-Few) per lpf Ur Culture Indicated? NO. A (NO) Urine Test Negative (Negative) 06/21/18 06/21/18 06/21/18 Range/Units 11:39 12:35 12:35 WBC (4.3-11.1) K/mcL RBC (3.82-4.97) M/mcL Hgb (11.5-15.4) g/dL Hct (35.3-44.9) % MCV (83.0-100.0) fL MCH (28.0-33.3) pg MCHC (31.6-35.5) g/dL RDW (11.5-14.5) % Plt Count (140-400) K/mcL MPV (9.4-12.4) fL Immature Gran % (0-4) % Seg Neutrophils % % Lymphocytes % % Monocytes % % Eosinophils % % Basophils % % Neutrophils # (1.6-8.9) K/mcL Lymphocytes # (0.6-4.6) K/mcL Monocytes # (0.0-1.3) K/mcL Eosinophils # (0.0-0.6) K/mcL Basophils # (0.0-0.2) K/mcL Sodium 136 (136-145) mEq/L Potassium 4.2 (3.5-5.1) mEq/L Chloride 99 (98-107) mEq/L Carbon Dioxide 25 (23-29) mEq/L BUN 8 (6-20) mg/dL Creatinine 0.63 (0.60-1.20) mg/dL Est GFR ( Amer) > 60 (> 60) Est GFR (Non-Af Amer) > 60 (> 60) BUN/Creatinine Ratio 13 (6-26) Glucose 91 (70-105) mg/dL Calculated Osmolality 280 (280-300) Lactic Acid 0.9 (0.5-2.2) mmol/L Calcium 10.2 (8.6-10.3) mg/dL Total Bilirubin 0.9 (0.3-1.0) mg/dL AST TNP 21 ALT 23 (7-52) Units/L Alkaline Phosphatase 134 H (34-104) Units/L Troponin I < 0.03 (< 0.04) ng/mL Serum Total Protein 9.0 H (6.4-8.9) g/dL Albumin 4.8 (3.5-5.7) g/dL Globulin 4.2 H (2.4-3.5) g/dL Albumin/Globulin Ratio 1.1 (1.1-2.2) Lipase 4 L (11-82) Units/L Urine Color (Yellow) Urine Clarity (Clear) Urine pH (5.0-8.0) pH Units Ur Specific [place] (1.010-1.025) Urine Protein (Neg-Trace) mg/dL Urine Glucose (UA) (Normal) mg/dL Urine Ketones (Negative) mg/dL Urine Blood (Negative) Urine Nitrite (Negative) Urine Bilirubin (Negative) Urine Urobilinogen (Normal) mg/dL Ur Leukocyte Esterase (Negative) Urine Microscopic RBC (0-3) per hpf Urine Microscopic WBC (0-3) per hpf Ur Squamous Epith Cells (None-Few) per lpf Urine Bacteria (None-Few) per hpf Hyaline Casts (None-Few) per lpf Ur Culture Indicated? (NO) Urine Test (Negative) - EKG Data EKG #1 EKG attestation: Yes I reviewed and interpreted this EKG.
[2018-06-21 11:40] LABS: Bilirubin,Urine Moderate (Negative); Blood,Urine Negative (Negative); Clarity,Urine Cloudy (Clear); Color,Urine Dark Yellow (Yellow); Glucose,Urine (UA) Normal (Normal); Ketones,Urine 80 mg/dL (Negative); Leukocyte Esterase,Urine Small (Negative); Nitrite,Urine Positive (Negative); Protein,Urine 30 mg/dL (Neg-Trace); Specific Gravity,Urine 1.023 (1.010-1.025); Urobilinogen,Urine Normal (Normal)
[2018-06-21 11:42] LABS: Bacteria,Urine Few per hpf (None-Few); Hyaline Casts,Urine Moderate per lpf (None-Few); RBC,Urine 0-3 per hpf (0-3); Squamous Epithelial Cell,Urine Many per lpf (None-Few); WBC,Urine 15-30 per hpf (0-3)
--- NOTE | 2018-06-21 11:45 | Emergency Department Note ---
Disposition Clinical Impression: Abdominal pain Qualifiers: Abdominal location: right upper quadrant Qualified Code(s): R10.11 - Right upper quadrant pain Disposition: Admitted As Inpatient Condition: Fair Referrals: NONE,PCP [Primary Care Provider] - Forms: ED Satisfaction Letter Time of Disposition: 15:18 General Adult HPI - General Chief complaint: ED Nausea/Vomiting/Diarrhea Stated complaint: NVD Time Seen by Provider: 06/21/18 10:59 - History of Present Illness Pain Scale: 8 - Related Data Home Medications Medication Instructions Recorded Confirmed Buprenorphine HCl [Subutex] 10 mg SL DAILY 05/25/18 05/25/18 FLUoxetine HCl [Prozac] 20 mg PO DAILY 05/25/18 05/25/18 Previous Rx's Medication Instructions Recorded Docusate Sodium [Colace] 100 mg PO BID PRN #30 capsule 06/03/18 Ibuprofen 800 mg PO Q8H PRN #30 tablet 06/03/18 Calcium Carbonate [Tums] 1,000 mg PO Q4HR PRN tab.chew 06/04/18 Allergies Allergy/AdvReac Type Severity Reaction Status Date / Time No Known Allergies Allergy Verified 06/21/18 10:47 Past Medical History - Past Medical History Medical history: Reports: GERD, hepatitis, other Surgical history: Reports: other Psychiatric history: Reports: anxiety, depression - Social History Smoking Status: Former smoker Smokeless Tobacco Status: No Alcohol use: Reports: none Drug use: Reports: marijuana Physical Exam - General General appearance: alert Course Vital Signs Temperature 98.0 F 06/21/18 10:47 Pulse Rate 128 06/21/18 10:47 Respiratory Rate 18 06/21/18 10:47 Blood Pressure 122/87 06/21/18 10:47 O2 Sat by Pulse Oximetry 97 06/21/18 10:47 Temperature 98.0 F 06/21/18 10:47 Pulse Rate 128 06/21/18 10:47 Respiratory Rate 18 06/21/18 10:47 Blood Pressure 122/87 06/21/18 10:47 O2 Sat by Pulse Oximetry 97 06/21/18 10:47 Oxygen Delivery Oxygen Delivery Room Air Medical Decision Making - Lab Data Result diagrams: 06/21/18 11:39 06/21/18 11:39 Lab Results 06/21/18 06/21/18 06/21/18 Range/Units 11:24 11:24 11:39 WBC 6.3 (4.3-11.1) K/mcL RBC 5.29 H (3.82-4.97) M/mcL Hgb 15.2 (11.5-15.4) g/dL Hct 45.0 H (35.3-44.9) % MCV 85.1 (83.0-100.0) fL MCH 28.7 (28.0-33.3) pg MCHC 33.8 (31.6-35.5) g/dL RDW 13.2 (11.5-14.5) % Plt Count 313 (140-400) K/mcL MPV 10.4 (9.4-12.4) fL Immature Gran % 0.2 (0-4) % Seg Neutrophils % 65.3 % Lymphocytes % 24.9 % Monocytes % 8.1 % Eosinophils % 1.0 % Basophils % 0.5 % Neutrophils # 4.1 (1.6-8.9) K/mcL Lymphocytes # 1.6 (0.6-4.6) K/mcL Monocytes # 0.5 (0.0-1.3) K/mcL Eosinophils # 0.1 (0.0-0.6) K/mcL Basophils # 0.0 (0.0-0.2) K/mcL Sodium (136-145) mEq/L Potassium (3.5-5.1) mEq/L Chloride (98-107) mEq/L Carbon Dioxide (23-29) mEq/L BUN (6-20) mg/dL Creatinine (0.60-1.20) mg/dL Est GFR ( Amer) (> 60) Est GFR (Non-Af Amer) (> 60) BUN/Creatinine Ratio (6-26) Glucose (70-105) mg/dL Calculated Osmolality (280-300) Lactic Acid (0.5-2.2) mmol/L Calcium (8.6-10.3) mg/dL Total Bilirubin (0.3-1.0) mg/dL AST ALT (7-52) Units/L Alkaline Phosphatase (34-104) Units/L Troponin I (< 0.04) ng/mL Serum Total Protein (6.4-8.9) g/dL Albumin (3.5-5.7) g/dL Globulin (2.4-3.5) g/dL Albumin/Globulin Ratio (1.1-2.2) Lipase (11-82) Units/L Urine Color Dark Yellow (Yellow) Urine Clarity Cloudy A (Clear) Urine pH 6.0 (5.0-8.0) pH Units Ur Specific [place] 1.023 (1.010-1.025) Urine Protein 30 H (Neg-Trace) mg/dL Urine Glucose (UA) Normal (Normal) mg/dL Urine Ketones 80 H (Negative) mg/dL Urine Blood Negative (Negative) Urine Nitrite Positive A (Negative) Urine Bilirubin Moderate H (Negative) Urine Urobilinogen Normal (Normal) mg/dL Ur Leukocyte Esterase Small H (Negative) Urine Microscopic RBC 0-3 (0-3) per hpf Urine Microscopic WBC 15-30 H (0-3) per hpf Ur Squamous Epith Cells Many H (None-Few) per lpf Urine Bacteria Few (None-Few) per hpf Hyaline Casts Moderate H (None-Few) per lpf Ur Culture Indicated? NO. A (NO) Urine Test Negative (Negative) 06/21/18 06/21/18 06/21/18 Range/Units 11:39 12:35 12:35 WBC (4.3-11.1) K/mcL RBC (3.82-4.97) M/mcL Hgb (11.5-15.4) g/dL Hct (35.3-44.9) % MCV (83.0-100.0) fL MCH (28.0-33.3) pg MCHC (31.6-35.5) g/dL RDW (11.5-14.5) % Plt Count (140-400) K/mcL MPV (9.4-12.4) fL Immature Gran % (0-4) % Seg Neutrophils % % Lymphocytes % % Monocytes % % Eosinophils % % Basophils % % Neutrophils # (1.6-8.9) K/mcL Lymphocytes # (0.6-4.6) K/mcL Monocytes # (0.0-1.3) K/mcL Eosinophils # (0.0-0.6) K/mcL Basophils # (0.0-0.2) K/mcL Sodium 136 (136-145) mEq/L Potassium 4.2 (3.5-5.1) mEq/L Chloride 99 (98-107) mEq/L Carbon Dioxide 25 (23-29) mEq/L BUN 8 (6-20) mg/dL Creatinine 0.63 (0.60-1.20) mg/dL Est GFR ( Amer) > 60 (> 60) Est GFR (Non-Af Amer) > 60 (> 60) BUN/Creatinine Ratio 13 (6-26) Glucose 91 (70-105) mg/dL Calculated Osmolality 280 (280-300) Lactic Acid 0.9 (0.5-2.2) mmol/L Calcium 10.2 (8.6-10.3) mg/dL Total Bilirubin 0.9 (0.3-1.0) mg/dL AST TNP 21 ALT 23 (7-52) Units/L Alkaline Phosphatase 134 H (34-104) Units/L Troponin I < 0.03 (< 0.04) ng/mL Serum Total Protein 9.0 H (6.4-8.9) g/dL Albumin 4.8 (3.5-5.7) g/dL Globulin 4.2 H (2.4-3.5) g/dL Albumin/Globulin Ratio 1.1 (1.1-2.2) Lipase 4 L (11-82) Units/L Urine Color (Yellow) Urine Clarity (Clear) Urine pH (5.0-8.0) pH Units Ur Specific [place] (1.010-1.025) Urine Protein (Neg-Trace) mg/dL Urine Glucose (UA) (Normal) mg/dL Urine Ketones (Negative) mg/dL Urine Blood (Negative) Urine Nitrite (Negative) Urine Bilirubin (Negative) Urine Urobilinogen (Normal) mg/dL Ur Leukocyte Esterase (Negative) Urine Microscopic RBC (0-3) per hpf Urine Microscopic WBC (0-3) per hpf Ur Squamous Epith Cells (None-Few) per lpf Urine Bacteria (None-Few) per hpf Hyaline Casts (None-Few) per lpf Ur Culture Indicated? (NO) Urine Test (Negative) Attestation Statement - Attestation Attestation: I examined this patient and my medical decision-making was reviewed with the Resident Physician. I agree with the documented findings, disposition and treatment plan as described except to the extent set forth below. Patient emergency department complaining of dry heaves and abdominal pain. Patient's 2 weeks status post cholecystectomy and stent placement for a retained stone. On examination she appears uncomfortable. Her incisions are well- healed without erythema or drainage. Upper abdominal tenderness. Plan. Labs and CT. CT scan shows a fluid collection. Concerning for abscess versus bile leak. Discussed with general surgery who is requesting a HIDA scan. Admitted to medicine. Sinus tachycardia 106. Mild diffuse ST segment depressions likely secondary to rate. Normal T waves. Normal QRS. Normal axis. Chest X-Ray 06/21/18 11:15 IMPRESSION: 1. No active pulmonary disease. D/ / Scott Barrientos MD / Scott Barrientos MD Interpreting Provider: Scott Barrientos MD Abdomen/Pelvis CT 06/21/18 13:56 IMPRESSION: Patient is status post interval cholecystectomy as compared to prior CT exam. There is a focal fluid collection noted within the surgical bed which may reflect an abscess or could reflect bile leak. There has been interval resolution of previously noted CT findings for acute pancreatitis. No CT evidence for acute pancreatitis is currently seen. Pancreas is unremarkable. Biliary stent remains in place. No extrahepatic biliary ductal dilatation is noted. However, there is persistent mild central intrahepatic biliary ductal dilatation, similar to prior exam 05/27/2018. Persistent but improved pneumobilia. D/ / 06/21/2018 14:28:07 Filemon Palmer MD / [place] Interpreting Provider: Filemon Palmer MD
[2018-06-21 12:05] LABS: Hemoglobin 15.2 g/dL (11.5-15.4); Red Blood Count 5.29 M/mcL (3.82-4.97)
[2018-06-21 12:06] LABS: Basophils % 0.5 %; Eosinophils # 0.1 K/mcL (0.0-0.6); Immature Granulocytes % 0.2 % (0-4); Lymphocytes # 1.6 K/mcL (0.6-4.6); Lymphocytes % 24.9 %; Mean Corpuscular HGB Conc 33.8 g/dL (31.6-35.5); Mean Corpuscular Hemoglobin 28.7 pg (28.0-33.3); Mean Corpuscular Volume 85.1 fL (83.0-100.0); Mean Platelet Volume 10.4 fL (9.4-12.4); Monocytes # 0.5 K/mcL (0.0-1.3); Monocytes % 8.1 %; Neutrophils # 4.1 K/mcL (1.6-8.9); Platelet Count 313 K/mcL (140-400); Red Cell Distribution Width 13.2 % (11.5-14.5); Segmented Neutrophils % 65.3 %
[2018-06-21] MEDS ORDERED: Piperacillin/Tazobactam 3.375 GM in 0.9 % Sodium Chloride Mini Bag 100 ML IVPB ONE (12:19)
[2018-06-21 12:21] LABS: Alanine Aminotransferase 23 Units/L (7-52); Albumin 4.8 g/dL (3.5-5.7); Albumin/Globulin Ratio 1.1 (1.1-2.2); Alkaline Phosphatase 134 Units/L (34-104); BUN/Creatinine Ratio 13 (6-26); Bilirubin,Total 0.9 mg/dL (0.3-1.0); Blood Urea Nitrogen 8 mg/dL (6-20); Calcium 10.2 mg/dL (8.6-10.3); Carbon Dioxide 25 mEq/L (23-29); Chloride 99 mEq/L (98-107); Globulin 4.2 g/dL (2.4-3.5); Glucose 91 mg/dL (70-105); Lipase 4 Units/L (11-82); Osmolality,Calculated 280 (280-300); Potassium 4.2 mEq/L (3.5-5.1); Sodium 136 mEq/L (136-145); Troponin I < 0.03 ng/mL (< 0.04); eGFR For Non-African Americans > 60 (> 60)
[2018-06-21] MEDS ORDERED: *HR* Morphine 2 MG/ML SYRINGE IVP STA (13:47)
[2018-06-21] MEDS ORDERED: Isovue-370 500 ML BOTTLE IVP ONE (13:56)
--- NOTE | 2018-06-21 15:48 | AcuteCare Surgery Consult Note ---
Date of Encounter: 06/21/18 Time of Encounter: 15:45 Assessment and Plan (1) Abdominal pain Current Visit: Yes Status: Acute Qualifiers: Abdominal location: right upper quadrant Qualified Code(s): R10.11 - Right upper quadrant pain (2) Choledocholithiasis Current Visit: No Status: Acute Retained stone in distal CBD s/p ERCP and lap zakiya that is nonobstructing. GI consult pending. (3) S/P laparoscopic cholecystectomy Current Visit: Yes Status: Acute Obtain HIDA scan to evaluate for bile leak. Doubt abscess d/t normal temp and no leukocytosis however, will start IV Zosyn. Request GI consult. History of Present Illness Consult date: 06/21/18 Reason for consult: abdominal pain Requesting physician: Wong Dooley History of present illness: This 38 y/o female present to [facility] ED c/o epigastric abdominal pain>RUQ abd pain>LUQ abdominal pain. She reports nausea and vomiting. She reports a recent hx of lap zakiya POD#19 and ERCP about 1 week prior to that. She reports that she felt great at first. She states she felt better than she did in years. She then reports that she started feeling worse again after the KAN was removed in the surgeon's office. Finally, about 5 days ago she developed progressively worsening abdominal pain and nausea and vomiting. She has been constantly nauseous since. She subjectly reports fever. Past Med Surg Social Fam HX - Past Medical History Medical history: GERD, hepatitis, other Psychiatric history: anxiety, depression - Past Surgical History Surgical History: other Additional surgical history: L ovary removed Apr 2017. stent for gall bladder - Social History Smoking Status: Former smoker Smokeless Tobacco Status: No Alcohol use: none Drug use: marijuana - Family History Sister Adopted: No Living Status: Still Living Hx Family Cardiac Disorders: No Hx Family Respiratory Disorders: No Hx Family Cancer: No Hx Family GI Disorders: No Hx Family Endocrine Disorder: No Hx Family Neuromuscular Disorders: No Hx Family Neurologic Disorders: No Hx Family HEENT Disorders: No Hx Family Autoimmune Disorders: No Mother Adopted: No Living Status: Still Living Hx Family Cardiac Disorders: Yes ([place] X 2) Hx Family Respiratory Disorders: No Hx Family Cancer: No Hx Family GI Disorders: No Hx Family Endocrine Disorder: No Hx Family Neuromuscular Disorders: No Hx Family Neurologic Disorders: No Hx Family HEENT Disorders: No Hx Family Autoimmune Disorders: No Father Living Status: Still Living Medications and Allergies Buprenorphine HCl [Subutex] 10 mg SL DAILY 05/25/18 [History] FLUoxetine HCl [Prozac] 20 mg PO DAILY 05/25/18 [History] Docusate Sodium [Colace] 100 mg PO BID PRN #30 capsule 06/03/18 [Rx] Allergy/AdvReac Type Severity Reaction Status Date / Time No Known Allergies Allergy Verified 06/21/18 10:47 Review of Systems All systems PM: The remainder of the systems were reviewed and are negative - Constitutional as per HPI, anorexia, chills, fatigue, fever(s), weakness, no night sweats - EENT Nose, mouth and throat: dry mouth, no nasal congestion, no nasal discharge, no sinus pain, no sinus pressure, no sore throat - Cardiovascular no chest pain, no dyspnea, no dyspnea on exertion, no edema - Respiratory no cough, no dyspnea, no wheezing - Gastrointestinal abdominal pain, belching, bloating, constipation, cramping, diarrhea, nausea, vomiting - Genitourinary Genitourinary: no difficulty urinating, no difficulty voiding, no dysuria, no urinary frequency - Musculoskeletal back pain, no joint swelling, no limited range of motion, no neck pain - Integumentary dry skin - Neurological no dizziness, no focal weakness, no weakness - Psychiatric no anxiety, no depression - Endocrine fatigue - Hematologic/Lymphatic no easy bleeding, no easy bruising General Surgery Exam Initial Vital Signs Temp Pulse Resp BP Pulse Ox 98.0 F 128 18 122/87 97 06/21/18 10:47 06/21/18 10:47 06/21/18 10:47 06/21/18 10:47 06/21/18 10:47 - General physical appearance no distress, moderate pain. negative: jaundice - Eyes PERRL, normal ocular movement. negative: icteric - ENT no congestion, dry mucosa. negative: nasal discharge - Neck no masses, no lymphadectomy, no venous distension - Respiratory normal respiratory effort, clear to auscultation - Cardiovascular Cardiovascular exam: Present: RRR. Absent: murmurs - Abdomen Abdomen general surgery: Present: bowel sounds present, soft, tender Abdominal Tenderness: Present: RUQ - Incision Incision: Present: clean and dry, intact - Genitourinary Present: normal external genitalia - Integumentary Integumentary general surgery: Present: warm and dry - Neurologic Present: CN 2-12 grossly intact - Musculoskeletal Present: normal posture - Psychiatric Psychiatric general surgery: Present: A&Ox3, appropriate Exam Initial Vital Signs Temp Pulse Resp BP Pulse Ox 98.0 F 128 18 122/87 97 06/21/18 10:47 06/21/18 10:47 06/21/18 10:47 06/21/18 10:47 06/21/18 10:47 Results - Labs 06/21/18 11:39 06/21/18 11:39 Abnormal lab results RBC 5.29 M/mcL (3.82-4.97) H 06/21/18 11:39 Hct 45.0 % (35.3-44.9) H 06/21/18 11:39 Alkaline Phosphatase 134 Units/L (34-104) H 06/21/18 11:39 Serum Total Protein 9.0 g/dL (6.4-8.9) H 06/21/18 11:39 Globulin 4.2 g/dL (2.4-3.5) H 06/21/18 11:39 Lipase 4 Units/L (11-82) L 06/21/18 11:39 Urine Clarity Cloudy (Clear) A 06/21/18 11:24 Urine Protein 30 mg/dL (Neg-Trace) H 06/21/18 11:24 Urine Ketones 80 mg/dL (Negative) H 06/21/18 11:24 Urine Nitrite Positive (Negative) A 06/21/18 11:24 Urine Bilirubin Moderate (Negative) H 06/21/18 11:24 Ur Leukocyte Esterase Small (Negative) H 06/21/18 11:24 Urine Microscopic WBC 15-30 per hpf (0-3) H 06/21/18 11:24 Ur Squamous Epith Cells Many per lpf (None-Few) H 06/21/18 11:24 Hyaline Casts Moderate per lpf (None-Few) H 06/21/18 11:24 Ur Culture Indicated? NO. (NO) A 06/21/18 11:24 Diabetes panel 06/21/18 06/21/18 Range/Units 11:39 12:35 Sodium 136 (136-145) mEq/L Potassium 4.2 (3.5-5.1) mEq/L Chloride 99 (98-107) mEq/L Carbon Dioxide 25 (23-29) mEq/L BUN 8 (6-20) mg/dL Creatinine 0.63 (0.60-1.20) mg/dL Glucose 91 (70-105) mg/dL Calcium 10.2 (8.6-10.3) mg/dL AST TNP 21 ALT 23 (7-52) Units/L Alkaline Phosphatase 134 H (34-104) Units/L Albumin 4.8 (3.5-5.7) g/dL Calcium panel 06/21/18 Range/Units 11:39 Calcium 10.2 (8.6-10.3) mg/dL Albumin 4.8 (3.5-5.7) g/dL Pituitary panel 06/21/18 Range/Units 11:39 Sodium 136 (136-145) mEq/L Potassium 4.2 (3.5-5.1) mEq/L Chloride 99 (98-107) mEq/L Carbon Dioxide 25 (23-29) mEq/L BUN 8 (6-20) mg/dL Creatinine 0.63 (0.60-1.20) mg/dL Glucose 91 (70-105) mg/dL Calcium 10.2 (8.6-10.3) mg/dL Adrenal panel 06/21/18 06/21/18 Range/Units 11:39 12:35 Sodium 136 (136-145) mEq/L Potassium 4.2 (3.5-5.1) mEq/L Chloride 99 (98-107) mEq/L Carbon Dioxide 25 (23-29) mEq/L BUN 8 (6-20) mg/dL Creatinine 0.63 (0.60-1.20) mg/dL Glucose 91 (70-105) mg/dL Calcium 10.2 (8.6-10.3) mg/dL Total Bilirubin 0.9 (0.3-1.0) mg/dL AST TNP 21 ALT 23 (7-52) Units/L Alkaline Phosphatase 134 H (34-104) Units/L Albumin 4.8 (3.5-5.7) g/dL All other labs normal. - Imaging CT scan - abdomen: image reviewed (fluid collection in GB fossa) Consult Discharge Plan - Plan Referrals: NONE,PCP [Primary Care Provider] -
--- NOTE | 2018-06-21 16:36 | Internal Med History&Physical ---
<Sue Garcia - Last Filed: 06/21/18 16:20> Date of Encounter: 06/21/18 Time of Encounter: 16:20 Internal Medicine - H&P: HPI Chief complaint: Abdominal pain Admitted From: Emergency Dept Plans for Post Hospital Care: Home History of present illness: Ms. Hoover is a 38 year old female with a past medical history of IV drug abuse, hepatitis C, IBS, depression who presented to [facility] c omplaining of abdominal pain. She is status post robotic cholecystectomy on 06/02/2018 due to having cholecystitis with choledocholelithiasis. During that admission she underwent ERCP with stent placement in common bile duct prior to cholecystectomy. She had been discharged with Augmentin. In the emergency department, initial vitals were temperature 98F, HR 128, blood pressure 122/87. WBC 6.3, lactic acid 0.9, AST 21, ALT 23, alkaline phosphatase 134, lipase 4. Urinalysis showing positive nitrite and leukocyte esterase, WBC 15-30, protein, ketones, moderate bilirubin, many squamous cells. Chest x-ray negative for acute cardiopulmonary process. General surgery was consulted in the ED and had ordered a hida scan. The patient was given IV fluids, Zosyn. -Abdomen/pelvis CT demonstrating status post cholecystectomy. Focal fluid collection noted within surgical bed which may reflect an abscess or could reflect bile leak. Pancreas is unremarkable. Biliary stent remains in place. No extrahepatic biliary ductal dilatation. Persistent mild central intrahepatic biliary ductal dilatation, similar to prior exam on 05/27/2018. Persistent but improved pneumobilia. Past Med Surg Social Fam HX - Past Medical History Medical history: GERD, hepatitis, other Psychiatric history: anxiety, depression - Past Surgical History Surgical History: other Additional surgical history: L ovary removed Apr 2017. stent for gall bladder - Social History Smoking Status: Former smoker Smokeless Tobacco Status: No Alcohol use: none Drug use: marijuana - Family History Sister Adopted: No Living Status: Still Living Hx Family Cardiac Disorders: No Hx Family Respiratory Disorders: No Hx Family Cancer: No Hx Family GI Disorders: No Hx Family Endocrine Disorder: No Hx Family Neuromuscular Disorders: No Hx Family Neurologic Disorders: No Hx Family HEENT Disorders: No Hx Family Autoimmune Disorders: No Mother Adopted: No Living Status: Still Living Hx Family Cardiac Disorders: Yes (RI X 2) Hx Family Respiratory Disorders: No Hx Family Cancer: No Hx Family GI Disorders: No Hx Family Endocrine Disorder: No Hx Family Neuromuscular Disorders: No Hx Family Neurologic Disorders: No Hx Family HEENT Disorders: No Hx Family Autoimmune Disorders: No Father Living Status: Still Living Internal Medicine - H&P: Meds Buprenorphine HCl [Subutex] 10 mg SL DAILY 05/25/18 [History] FLUoxetine HCl [Prozac] 20 mg PO DAILY 05/25/18 [History] Docusate Sodium [Colace] 100 mg PO BID PRN #30 capsule 06/03/18 [Rx] Allergy/AdvReac Type Severity Reaction Status Date / Time No Known Allergies Allergy Verified 06/21/18 10:47 All Systems PM: A 10-system review of systems was performed and is negative for pertinent findings except as documented above in the HPI. - Constitutional Vitals: Temp Pulse Resp BP Pulse Ox 98.0 F 103 18 118/81 100 06/21/18 10:47 06/21/18 15:17 06/21/18 15:17 06/21/18 15:17 06/21/18 15:17 Internal Med - H&P Results - Labs CBC & Chem 7: 06/21/18 11:39 06/21/18 11:39 Labs: Short CBC 06/21/18 Range/Units 11:39 WBC 6.3 (4.3-11.1) K/mcL Hgb 15.2 (11.5-15.4) g/dL Hct 45.0 H (35.3-44.9) % Plt Count 313 (140-400) K/mcL Neutrophils # 4.1 (1.6-8.9) K/mcL BMP 06/21/18 11:39 Sodium 136 Potassium 4.2 Chloride 99 Carbon Dioxide 25 BUN 8 Creatinine 0.63 Glucose 91 Calcium 10.2 Cardiac Enzymes 06/21/18 Range/Units 11:39 Troponin I < 0.03 (< 0.04) ng/mL Liver Function 06/21/18 06/21/18 Range/Units 11:39 12:35 Total Bilirubin 0.9 (0.3-1.0) mg/dL AST TNP 21 ALT 23 (7-52) Units/L Alkaline Phosphatase 134 H (34-104) Units/L Albumin 4.8 (3.5-5.7) g/dL Urine 06/21/18 Range/Units 11:24 Urine Color Dark Yellow (Yellow) Urine Clarity Cloudy A (Clear) Urine pH 6.0 (5.0-8.0) pH Units Ur Specific [place] 1.023 (1.010-1.025) Urine Protein 30 H (Neg-Trace) mg/dL Urine Glucose (UA) Normal (Normal) mg/dL - Impressions ITS Impressions Chest X-Ray 06/21/18 11:15 IMPRESSION: 1. No active pulmonary disease. D/ / Scott Barrientos MD / Scott Barrientos MD Interpreting Provider: Scott Barrientos MD Abdomen/Pelvis CT 06/21/18 13:56 IMPRESSION: Patient is status post interval cholecystectomy as compared to prior CT exam. There is a focal fluid collection noted within the surgical bed which may reflect an abscess or could reflect bile leak. There has been interval resolution of previously noted CT findings for acute pancreatitis. Pancreas is currently unremarkable. Biliary stent remains in place. No extrahepatic biliary ductal dilatation is noted. However, there is persistent mild central intrahepatic biliary ductal dilatation, similar to prior exam 05/27/2018. Persistent but improved pneumobilia. D/ / 06/21/2018 14:28:07 Filemon Palmer MD / [place] Interpreting Provider: Filemon Palmer MD - Time Spent With Patient Total time spent is greater than 50% in coordination of care (as documented) at patient's floor/unit and/or counseling patient: <Marcus Richmond - Last Filed: 06/21/18 19:03> Date of Encounter: 06/21/18 Internal Medicine - H&P: HPI History of present illness: 1809 At the present time she is feeling a little better. She has less pain and has just returned from HIDA scan. All Systems PM: A 10-system review of systems was performed and is negative for pertinent findings except as documented above in the HPI. - Constitutional Constitutional: fatigue, fever(s) (subjective) - EENT Eyes: no diplopia, no pain Ears: no decreased hearing Nose, mouth and throat: dry mouth, no mouth pain - Cardiovascular Cardiovascular ROS IM: no chest pain, no dyspnea, no dyspnea on exertion - Respiratory Respiratory: no cough, no dyspnea on exertion, no wheezing - Gastrointestinal Gastrointestinal: abdominal pain, nausea, vomiting - Genitourinary Genitourinary: no difficulty urinating, no nocturia - Musculoskeletal Musculoskeletal ROS IM: no arthralgias - Integumentary Integumentary IM: no rash - Neurological Neurological ROS: no dizziness, no numbness - Endocrine Endocrine IM: no excessive sweating - Allergic/Immunologic Allergic/Immunologic: no seasonal rhinorrhea - Constitutional Vitals: Temp Pulse Resp BP Pulse Ox 98.0 F 103 18 118/81 100 06/21/18 10:47 06/21/18 15:17 06/21/18 15:17 06/21/18 15:17 06/21/18 15:17 General appearance: Present: A&O X 3, pleasant, answers questions appropriately Exam: See below - Head Head exam: Present: atraumatic, normocephalic - Eye Eye exam: Present: EOMI, conjuntiva pink - ENT ENT exam: Present: mucous membranes moist - Neck Neck exam general surgery: Present: normal inspection - Respiratory Respiratory exam: Present: CTAB. Absent: rales, rhonchi, wheezes - Cardiovascular Cardiovascular exam: Present: RRR, tachycardia - GI/Abdominal GI/Abdominal exam: Present: soft, tenderness (R side of abdomen), no peritoneal signs - Extremities Exam Extremities exam: Present: warm. Absent: tenderness - Neurological Exam Neurological exam: Present: alert, oriented X3, no focal deficits - Skin Skin exam: Present: dry, warm. Absent: rash Internal Med - H&P Results - Labs CBC & Chem 7: 06/21/18 11:39 06/21/18 11:39 Labs: Short CBC 06/21/18 Range/Units 11:39 WBC 6.3 (4.3-11.1) K/mcL Hgb 15.2 (11.5-15.4) g/dL Hct 45.0 H (35.3-44.9) % Plt Count 313 (140-400) K/mcL Neutrophils # 4.1 (1.6-8.9) K/mcL BMP 04/15/19 11:39 Sodium 136 Potassium 4.2 Chloride 99 Carbon Dioxide 25 BUN 8 Creatinine 0.63 Glucose 91 Calcium 10.2 Cardiac Enzymes 06/21/18 Range/Units 11:39 Troponin I < 0.03 (< 0.04) ng/mL Liver Function 06/21/18 06/21/18 Range/Units 11:39 12:35 Total Bilirubin 0.9 (0.3-1.0) mg/dL AST TNP 21 ALT 23 (7-52) Units/L Alkaline Phosphatase 134 H (34-104) Units/L Albumin 4.8 (3.5-5.7) g/dL Urine 06/21/18 Range/Units 11:24 Urine Color Dark Yellow (Yellow) Urine Clarity Cloudy A (Clear) Urine pH 6.0 (5.0-8.0) pH Units Ur Specific [place] 1.023 (1.010-1.025) Urine Protein 30 H (Neg-Trace) mg/dL Urine Glucose (UA) Normal (Normal) mg/dL - Impressions ITS Impressions Chest X-Ray 06/21/18 11:15 IMPRESSION: 1. No active pulmonary disease. D/ / Scott Barrientos MD / Scott Barrientos MD Interpreting Provider: Scott Barrientos MD Abdomen/Pelvis CT 06/21/18 13:56 IMPRESSION: Patient is status post interval cholecystectomy as compared to prior CT exam. There is a focal fluid collection noted within the surgical bed which may reflect an abscess or could reflect bile leak. There has been interval resolution of previously noted CT findings for acute pancreatitis. Pancreas is currently unremarkable. Biliary stent remains in place. No extrahepatic biliary ductal dilatation is noted. However, there is persistent mild central intrahepatic biliary ductal dilatation, similar to prior exam 05/27/2018. Persistent but improved pneumobilia. D/ / 06/21/2018 14:28:07 Filemon Palmer MD / [place] Interpreting Provider: Filemon Palmer MD - Assessment and Plan (1) UTI (urinary tract infection) Current Visit: No Status: Acute Assessment and plan: Urinalysis performed in ED shows positive nitrite and WBCs. Already received Zosyn but will resend as culture. Cultures negative in past. Qualifiers: Urinary tract infection type: acute cystitis Hematuria presence: without hematuria Qualified Code(s): N30.00 - Acute cystitis without hematuria (2) SIRS (systemic inflammatory response syndrome) Current Visit: Yes Status: Acute Assessment and plan: Pt has tachycardia and potential source of infection. Doubt this is sepsis but has been placed on IV Zosyn. Cultures pending. (3) Abdominal pain Current Visit: Yes Status: Acute Assessment and plan: Pt is s/p lap zakiya 19 days ago. Appreciate surgical input. HIDA pending. Qualifiers: Abdominal location: right upper quadrant Qualified Code(s): R10.11 - Right upper quadrant pain (4) Choledocholithiasis Current Visit: No Status: Acute Assessment and plan: Pt has prior hx and has biliary stent in place at this time. (5) Hep C w/o coma, chronic Current Visit: No Status: Chronic (6) Opiate dependence Current Visit: Yes Status: Chronic Assessment and plan: Continue pt Subutex. Qualifiers: Substance use status: in remission Qualified Code(s): F11.21 - Opioid dependence, in remission - Time Spent With Patient Total time spent is greater than 50% in coordination of care (as documented) at patient's floor/unit and/or counseling patient:
[2018-06-21] MEDS ORDERED: Naloxone 0.4 MG/ML INJ IVP PRN (18:39)
[2018-06-21] MEDS ORDERED: *HR* HYDROcodone/Acet 5/325 mg TABLET PO PRN (18:41)
[2018-06-21] MEDS ORDERED: OXYCODONE Oral CONC 10 MG/0.5 ML ORAL.SYG SL PRN (18:41)
[2018-06-21] MEDS: 0.9 % Sodium Chloride 1,000 ML IVC SCH (19:25)
[2018-06-21] MEDS: Ondansetron 4 MG/2 ML VIAL IVP PRN (22:11)
[2018-06-21] MEDS: Piperacillin/Tazobactam 3.375 GM in 0.9 % Sodium Chloride Mini Bag 100 ML IVPB SCH (22:13)
[2018-06-21] MEDS: Metoclopramide 10 MG/2 ML VIAL IVP SCH (23:22)
[2018-06-21] MEDS: Pantoprazole 40 MG VIAL IVP SCH (23:44)
[2018-06-22] MEDS: 0.9 % Sodium Chloride 1,000 ML IVC SCH ×3 (03:32→18:23)
[2018-06-22 04:56] LABS: Basophils % 0.2 %; Eosinophils # 0.1 K/mcL (0.0-0.6); Eosinophils % 1.5 %; Hematocrit 33.9 % (35.3-44.9); Immature Granulocytes % 0.2 % (0-4); Lymphocytes # 2.1 K/mcL (0.6-4.6); Lymphocytes % 51.5 %; Mean Corpuscular HGB Conc 32.2 g/dL (31.6-35.5); Mean Corpuscular Hemoglobin 28.5 pg (28.0-33.3); Mean Corpuscular Volume 88.7 fL (83.0-100.0); Mean Platelet Volume 10.7 fL (9.4-12.4); Monocytes # 0.5 K/mcL (0.0-1.3); Monocytes % 11.2 %; Neutrophils # 1.5 K/mcL (1.6-8.9); Platelet Count 239 K/mcL (140-400); Red Blood Count 3.82 M/mcL (3.82-4.97); Red Cell Distribution Width 12.9 % (11.5-14.5); Segmented Neutrophils % 35.4 %
[2018-06-22 05:22] LABS: Alanine Aminotransferase 15 Units/L (7-52); Albumin 3.2 g/dL (3.5-5.7); Albumin/Globulin Ratio 1.2 (1.1-2.2); Alkaline Phosphatase 82 Units/L (34-104); Aspartate Amino Transferase 21 Units/L (13-39); BUN/Creatinine Ratio 11 (6-26); Bilirubin,Total 0.6 mg/dL (0.3-1.0); Blood Urea Nitrogen 6 mg/dL (6-20); Calcium 8.3 mg/dL (8.6-10.3); Carbon Dioxide 22 mEq/L (23-29); Chloride 106 mEq/L (98-107); Globulin 2.7 g/dL (2.4-3.5); Glucose 66 mg/dL (70-105); Magnesium 1.5 mg/dL (1.6-2.6); Osmolality,Calculated 284 (280-300); Potassium 3.3 mEq/L (3.5-5.1); Sodium 139 mEq/L (136-145); Total Protein 5.9 g/dL (6.4-8.9); eGFR For Non-African Americans > 60 (> 60)
[2018-06-22 05:25] LABS: Hemoglobin 10.9 g/dL (11.5-15.4)
[2018-06-22] MEDS: Metoclopramide 10 MG/2 ML VIAL IVP SCH ×3 (06:07→17:24)
[2018-06-22] MEDS: Piperacillin/Tazobactam 3.375 GM in 0.9 % Sodium Chloride Mini Bag 100 ML IVPB SCH ×2 (06:08→14:43)
--- NOTE | 2018-06-22 07:17 | Electrocardiograph Report ---
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
--- NOTE | 2018-06-22 08:00 | Internal Med Progress Note ---
<Naomy Bob N - Last Filed: 06/22/18 14:13> Hospitalist Progress Note - Encounter Date of Encounter: 06/22/18 Time of Encounter: 08:00 - Subjective Interval History: Ms. Hoover is a 38-year-old female who presented to the emergency department due to worsening abdominal pain, nausea, and vomiting. Patient underwent laparosco pic cholecystectomy approximately 20 days ago, and has been having issues ever since removal of her KAN drain. On evaluation this morning, patient reports improvement in abdominal pain, though she states that she does still have intermittent pain, particularly with movement. Patient reports significant nausea, and states that that is her main complaint at this time. She denies any fevers, chills, or other signs of infection. - Exam Vitals: Temp Pulse Resp BP Pulse Ox 97.5 F L 91 14 107/67 96 06/22/18 03:40 06/22/18 03:40 06/22/18 03:40 06/22/18 03:40 06/22/18 03:40 Exam: GENERAL: Well-developed, well-nourished adult female in no acute distress. HEENT: Atraumatic and normocephalic. CARDIOVASCULAR: Regular rate and rhythm. S1 and S2 present. No murmurs, gallops, or rubs. RESPIRATORY: Clear to auscultation bilaterally. Chest rises and falls symmetrically without accessory muscle use. GASTROINTESTINAL: Abdomen is soft and nondistended. Bowel sounds present. Abdomen is diffusely tender to palpation. EXTREMITIES: No clubbing, cyanosis, or edema. SKIN: Warm, dry, and intact. NEUROLOGIC: Alert and oriented x3. Patient is cooperative with exam and answers questions appropriately. No apparent focal deficits. PSYCHIATRIC: Appropriate mood and affect. - Assessment and Plan (1) Abdominal pain Current Visit: Yes Status: Acute Assessment and Plan: Patient presented to the emergency department due to worsening abdominal pain associated with nausea and vomiting. Patient is s/p laparoscopic cholecystectomy approximately [address] of the abdomen and pelvis demonstrated antra for cholecystectomy since prior CT exam. Focal fluid collection noted within the surgical bed which may miranda flecked an abscess or bile leak. Biliary stent in place, with no extrahepatic biliary ductal dilation; however, there is persistent mild central intrahepatic biliary ductal dilation, similar to prior exam on 05/27/18. Persistent but improved pneumobilia noted. HIDA scan demonstrated no evidence of biliary leak. ERCP on 05/26/18 was significant for a stone in the common bile duct, which at that time, was stated to require crushing a few weeks after cholecystectomy. - Continue medical management, including pain control, PPI, antiemetics, and antibiotic therapy. - GI consult placed. Per their documentation, plan to continue medical management with outpatient follow-up for her repeat ERCP on an outpatient basis. - Per surgery, no immediate plan for return trip to the OR, though there is possibility for open common bile duct exploration if the patient remains symptomatic. - Appreciate surgery and gastroenterology recommendations regarding management of this problem. (2) Choledocholithiasis Current Visit: No Status: Acute Assessment and Plan: History of choledocholithiasis, with stent placement. Plan as above. (3) UTI (urinary tract infection) Current Visit: No Status: Acute Assessment and Plan: Urinalysis performed in the emergency department was suspicious for infection, with positive nitrates, small leukocyte esterase, 15-30 WBC, and few urine bacteria. - Urine culture pending. - Continue current antibiotic therapy with Zosyn. (4) Hep C w/o coma, chronic Current Visit: No Status: Chronic (5) Opiate dependence Current Visit: Yes Status: Chronic Assessment and Plan: - Continue home medication of subutex. DVT Prophylaxis: - SCDs. - Time Spent with Patient Total time spent is greater than 50% in coordination of care (as documented) at patient's floor/unit and/or counseling patient: Internal Medicine: Result - Labs CBC & Chem 7: 06/22/18 04:34 06/22/18 04:34 Labs: Short CBC 06/21/18 06/22/18 Range/Units 11:39 04:34 WBC 6.3 4.1 L (4.3-11.1) K/mcL Hgb 15.2 10.9 L D (11.5-15.4) g/dL Hct 45.0 H 33.9 L (35.3-44.9) % Plt Count 313 239 (140-400) K/mcL Neutrophils # 4.1 1.5 L (1.6-8.9) K/mcL BMP 06/21/18 06/22/18 11:39 04:34 Sodium 136 139 Potassium 4.2 3.3 L Chloride 99 106 Carbon Dioxide 25 22 L BUN 8 6 Creatinine 0.63 0.55 L Glucose 91 66 L Calcium 10.2 8.3 L Cardiac Enzymes 06/21/18 Range/Units 11:39 Troponin I < 0.03 (< 0.04) ng/mL Liver Function 06/21/18 06/21/18 06/22/18 Range/Units 11:39 12:35 04:34 Total Bilirubin 0.9 0.6 (0.3-1.0) mg/dL AST TNP 21 21 ALT 23 15 (7-52) Units/L Alkaline Phosphatase 134 H 82 (34-104) Units/L Albumin 4.8 3.2 L (3.5-5.7) g/dL Urine 06/21/18 Range/Units 11:24 Urine Color Dark Yellow (Yellow) Urine Clarity Cloudy A (Clear) Urine pH 6.0 (5.0-8.0) pH Units Ur Specific [place] 1.023 (1.010-1.025) Urine Protein 30 H (Neg-Trace) mg/dL Urine Glucose (UA) Normal (Normal) mg/dL - Impressions Impressions Chest X-Ray 06/21/18 11:15 IMPRESSION: 1. No active pulmonary disease. D/ / Scott Barrientos MD / Scott Barrientos MD Interpreting Provider: Scott Barrientos MD Abdomen/Pelvis CT 06/21/18 13:56 IMPRESSION: Patient is status post interval cholecystectomy as compared to prior CT exam. There is a focal fluid collection noted within the surgical bed which may reflect an abscess or could reflect bile leak. There has been interval resolution of previously noted CT findings for acute pancreatitis. Pancreas is currently unremarkable. Biliary stent remains in place. No extrahepatic biliary ductal dilatation is noted. However, there is persistent mild central intrahepatic biliary ductal dilatation, similar to prior exam 05/27/2018. Persistent but improved pneumobilia. D/ / 06/21/2018 14:28:07 Filemon Palmer MD / [place] Interpreting Provider: Filemon Palmer MD Bile Acid Absorption NM 06/21/18 15:55 IMPRESSION: No evidence of biliary leak. D/ / 06/21/2018 19:10:43 Donald Bhagat MD / shimon Interpreting Provider: Donald Bhagat MD Consult Discharge Plan - Plan Referrals: NONE,PCP [Primary Care Provider] - <Marcus Richmond - Last Filed: 06/22/18 15:36> Hospitalist Progress Note - Encounter Date of Encounter: 06/22/18 - Exam Vitals: Temp Pulse Resp BP Pulse Ox 97.6 F 90 17 117/71 100 06/22/18 11:26 06/22/18 11:26 06/22/18 11:26 06/22/18 11:26 06/22/18 11:26 - Assessment and Plan (1) Abdominal pain Current Visit: Yes Status: Acute (2) Choledocholithiasis Current Visit: No Status: Acute (3) Hep C w/o coma, chronic Current Visit: No Status: Chronic (4) UTI (urinary tract infection) Current Visit: No Status: Acute (5) Opiate dependence Current Visit: Yes Status: Chronic - Time Spent with Patient Total time spent is greater than 50% in coordination of care (as documented) at patient's floor/unit and/or counseling patient: Internal Medicine: Result - Labs CBC & Chem 7: 06/22/18 04:34 06/22/18 04:34 Labs: Short CBC 06/22/18 Range/Units 04:34 WBC 4.1 L (4.3-11.1) K/mcL Hgb 10.9 L D (11.5-15.4) g/dL Hct 33.9 L (35.3-44.9) % Plt Count 239 (140-400) K/mcL Neutrophils # 1.5 L (1.6-8.9) K/mcL BMP 06/22/18 04:34 Sodium 139 Potassium 3.3 L Chloride 106 Carbon Dioxide 22 L BUN 6 Creatinine 0.55 L Glucose 66 L Calcium 8.3 L Liver Function 06/22/18 Range/Units 04:34 Total Bilirubin 0.6 (0.3-1.0) mg/dL AST 21 (13-39) Units/L ALT 15 (7-52) Units/L Alkaline Phosphatase 82 (34-104) Units/L Albumin 3.2 L (3.5-5.7) g/dL - Impressions Impressions Abdomen/Pelvis CT 06/21/18 13:56 IMPRESSION: Patient is status post interval cholecystectomy as compared to prior CT exam. There is a focal fluid collection noted within the surgical bed which may reflect an abscess or could reflect bile leak. There has been interval resolution of previously noted CT findings for acute pancreatitis. Pancreas is currently unremarkable. Biliary stent remains in place. No extrahepatic biliary ductal dilatation is noted. However, there is persistent mild central intrahepatic biliary ductal dilatation, similar to prior exam 05/27/2018. Persistent but improved pneumobilia. D/ / 06/21/2018 14:28:07 Filemon Palmer MD / [place] Interpreting Provider: Filemon Palmer MD Bile Acid Absorption NM 06/21/18 15:55 IMPRESSION: No evidence of biliary leak. D/ / 06/21/2018 19:10:43 Donald [facility]agat MD / [facility] Interpreting Provider: Donald Bhagat MD - Attending Attestation I examined this patient and my medical decision-making was reviewed with the Resident Physician on 06/22/18. I agree with the documented findings, disposition and treatment plan as described except to the extent set forth below. Ms Hoover is currently admitted for acute abd pain with nausea and vomiting. She remains moderate to high risk due to potential for worsening clinical status. Ms Hoover is doing OK. She is resting at this time. Awaiting further GI input. HIDA neg for bile leak. Exam alert Comfortable Mucus membranes dry Heart not tachy No wheeze abd still with some tenderness No edema I/P 1. Abd pain - retained stone. Further GI eval pending 2. Recent cholecystectomy Further diagnoses and plan as above. ___ <Naomy Bob - Last Filed: 06/22/18 14:13> (1) Abdominal pain Qualifiers: Abdominal location: right upper quadrant Qualified Code(s): R10.11 - Right upper quadrant pain (3) UTI (urinary tract infection) Qualifiers: Urinary tract infection type: acute cystitis Hematuria presence: without hematuria Qualified Code(s): N30.00 - Acute cystitis without hematuria (5) Opiate dependence Qualifiers: Substance use status: in remission Qualified Code(s): F11.21 - Opioid depe ndence, in remission <Marcus Richmond A - Last Filed: 06/22/18 15:36> (1) Abdominal pain Qualifiers: Abdominal location: right upper quadrant Qualified Code(s): R10.11 - Right upper quadrant pain (4) UTI (urinary tract infection) Qualifiers: Urinary tract infection type: acute cystitis Hematuria presence: without hematuria Qualified Code(s): N30.00 - Acute cystitis without hematuria (5) Opiate dependence Qualifiers: Substance use status: in remission Qualified Code(s): F11.21 - Opioid de pendence, in remission
--- NOTE | 2018-06-22 08:11 | AcuteCareSurgery Progress Note ---
<Itzel Castro - Last Filed: 06/22/18 09:34> Date of Encounter: 06/22/18 Time of Encounter: 08:11 - Assessment and Plan (1) Choledocholithiasis Current Visit: No Status: Acute This is a 38-year-old female with past medical history significant for GERD and hepatitis who presented to the [facility] ED with complaints of epigastric/right upper quadrant abdominal pain. Associated with nausea and vomiting. She is currently postop day #20 status post laparoscopic cholecystectomy. Notes that she initially felt better after surgery. However as of 5 days ago she has had intractable nausea and vomiting. Exam was notable for right upper quadrant tenderness - Patient additionally has biliary stent in place that is patent - CT abdomen and pelvis showed focal fluid collection within surgical bed after cholecystectomy - HIDA scan was negative - no evidence of biliary leak PLAN: Patient remains afebrile without leukocytosis. She has retained stone in distal common bile duct that is nonobstructing - GI recommendations appreciated - Continue antibiotics - Keep patient nothing by mouth pending GI consult - Scheduled Tylenol and Toradol - Otherwise medical management per primary team Subjective Patient reports: no new complaints, feels better, still having pain, pain is less, voiding w/o difficulty, flatus, afebrile Narrative: Patient seen and examined at bedside this morning. She notes that her pain is less as of this morning. Denies any nausea or vomiting overnight. Denies feeling febrile overnight. Patient is status post laparoscopic cholecystectomy postop day #20 today. HIDA scan done yesterday showed no evidence of biliary leak. Pending GI consult today. Objective Vital Signs - Last 8 Hours Temp Pulse Resp BP Pulse Ox 06/22/18 03:40 97.5 F L 91 14 107/67 96 Intake and Output 06/21/18 06/22/18 06/22/18 23:59 07:59 15:59 Intake Total 1100 / 1100 Balance 1100 / 1100 Intake: IV Fluids 1100 / 1100 0.9 % Sodium Chloride 1,000 ML 1000 / 1000 @ 125 mls/hr IVC .Q8H OCTAVIO Rx#: [id number] Zosyn 3.375 GM In 0.9 % Sodium 100 / 100 Chloride (Mini-Bag +) 100 ML @ 25 mls/hr IVPB Q8H OCTAVIO Rx#: [id number] Other: # Voids 1 Weight 83.3 kg Patient Weight 04/16/19 23:59 Weight 83.3 kg - General physical appearance well developed, well nourished, no distress - Eyes PERRL, normal ocular movement - Respiratory normal expansion, normal respiratory effort, clear to auscultation - Cardiovascular Cardiovascular exam: Present: RRR, regular rhythm, no murmurs/rubs/gallops - Abdomen Abdomen: Present: bowel sounds present, soft, tender (Mild tenderness to palpation in right upper quadrant) - Incision Incision: Present: clean and dry, intact - Psychiatric oriented to time, oriented to person, oriented to place, speech is normal, memory intact - Labs 06/22/18 04:34 06/22/18 04:34 Diabetes panel 06/21/18 06/21/18 06/22/18 Range/Units 11:39 12:35 04:34 Sodium 136 139 (136-145) mEq/L Potassium 4.2 3.3 L (3.5-5.1) mEq/L Chloride 99 106 (98-107) mEq/L Carbon Dioxide 25 22 L (23-29) mEq/L BUN 8 6 (6-20) mg/dL Creatinine 0.63 0.55 L (0.60-1.20) mg/dL Glucose 91 66 L (70-105) mg/dL Calcium 10.2 8.3 L (8.6-10.3) mg/dL AST TNP 21 21 ALT 23 15 (7-52) Units/L Alkaline Phosphatase 134 H 82 (34-104) Units/L Albumin 4.8 3.2 L (3.5-5.7) g/dL Calcium panel 06/21/18 06/22/18 Range/Units 11:39 04:34 Calcium 10.2 8.3 L (8.6-10.3) mg/dL Albumin 4.8 3.2 L (3.5-5.7) g/dL Pituitary panel 06/21/18 06/22/18 Range/Units 11:39 04:34 Sodium 136 139 (136-145) mEq/L Potassium 4.2 3.3 L (3.5-5.1) mEq/L Chloride 99 106 (98-107) mEq/L Carbon Dioxide 25 22 L (23-29) mEq/L BUN 8 6 (6-20) mg/dL Creatinine 0.63 0.55 L (0.60-1.20) mg/dL Glucose 91 66 L (70-105) mg/dL Calcium 10.2 8.3 L (8.6-10.3) mg/dL Adrenal panel 06/21/18 06/21/18 06/22/18 Range/Units 11:39 12:35 04:34 Sodium 136 139 (136-145) mEq/L Potassium 4.2 3.3 L (3.5-5.1) mEq/L Chloride 99 106 (98-107) mEq/L Carbon Dioxide 25 22 L (23-29) mEq/L BUN 8 6 (6-20) mg/dL Creatinine 0.63 0.55 L (0.60-1.20) mg/dL Glucose 91 66 L (70-105) mg/dL Calcium 10.2 8.3 L (8.6-10.3) mg/dL Total Bilirubin 0.9 0.6 (0.3-1.0) mg/dL AST TNP 21 21 ALT 23 15 (7-52) Units/L Alkaline Phosphatase 134 H 82 (34-104) Units/L Albumin 4.8 3.2 L (3.5-5.7) g/dL Consult Discharge Plan - Plan Referrals: NONE,PCP [Primary Care Provider] - <Adam Lakhani - Last Filed: 06/22/18 12:11> Date of Encounter: 06/22/18 Objective Vital Signs - Last 8 Hours Temp Pulse Resp BP Pulse Ox 06/22/18 11:26 97.6 F 90 17 117/71 100 06/22/18 08:46 97 06/22/18 08:19 92 18 145/90 97 Intake and Output 06/21/18 06/22/18 06/22/18 23:59 07:59 15:59 Intake Total 1100 / 1100 1000 / 1000 Balance 1100 / 1100 1000 / 1000 Intake: IV Fluids 1100 / 1100 1000 / 1000 0.9 % Sodium Chloride 1,000 ML 1000 / 1000 1000 / 1000 @ 125 mls/hr IVC .Q8H OCTAVIO Rx#: [id number] Zosyn 3.375 GM In 0.9 % Sodium 100 / 100 Chloride (Mini-Bag +) 100 ML @ 25 mls/hr IVPB Q8H OCTAVIO Rx#: [id number] Other: # Voids 1 Weight 83.3 kg Blood Glucose* 56 Patient Weight 06/22/18 23:59 Weight 83.3 kg - Labs 06/22/18 04:34 06/22/18 04:34 Diabetes panel 06/21/18 06/21/18 06/22/18 Range/Units 11:39 12:35 04:34 Sodium 136 139 (136-145) mEq/L Potassium 4.2 3.3 L (3.5-5.1) mEq/L Chloride 99 106 (98-107) mEq/L Carbon Dioxide 25 22 L (23-29) mEq/L BUN 8 6 (6-20) mg/dL Creatinine 0.63 0.55 L (0.60-1.20) mg/dL Glucose 91 66 L (70-105) mg/dL Calcium 10.2 8.3 L (8.6-10.3) mg/dL AST TNP 21 21 ALT 23 15 (7-52) Units/L Alkaline Phosphatase 134 H 82 (34-104) Units/L Albumin 4.8 3.2 L (3.5-5.7) g/dL Calcium panel 06/21/18 06/22/18 Range/Units 11:39 04:34 Calcium 10.2 8.3 L (8.6-10.3) mg/dL Albumin 4.8 3.2 L (3.5-5.7) g/dL Pituitary panel 06/21/18 06/22/18 Range/Units 11:39 04:34 Sodium 136 139 (136-145) mEq/L Potassium 4.2 3.3 L (3.5-5.1) mEq/L Chloride 99 106 (98-107) mEq/L Carbon Dioxide 25 22 L (23-29) mEq/L BUN 8 6 (6-20) mg/dL Creatinine 0.63 0.55 L (0.60-1.20) mg/dL Glucose 91 66 L (70-105) mg/dL Calcium 10.2 8.3 L (8.6-10.3) mg/dL Adrenal panel 06/21/18 06/21/18 06/22/18 Range/Units 11:39 12:35 04:34 Sodium 136 139 (136-145) mEq/L Potassium 4.2 3.3 L (3.5-5.1) mEq/L Chloride 99 106 (98-107) mEq/L Carbon Dioxide 25 22 L (23-29) mEq/L BUN 8 6 (6-20) mg/dL Creatinine 0.63 0.55 L (0.60-1.20) mg/dL Glucose 91 66 L (70-105) mg/dL Calcium 10.2 8.3 L (8.6-10.3) mg/dL Total Bilirubin 0.9 0.6 (0.3-1.0) mg/dL AST TNP 21 21 ALT 23 15 (7-52) Units/L Alkaline Phosphatase 134 H 82 (34-104) Units/L Albumin 4.8 3.2 L (3.5-5.7) g/dL - Attending Attestation I examined this patient and my medical decision-making was reviewed with the Resident Physician. I agree with the documented findings, disposition and treatment plan as described except to the extent set forth below. The patient is seen and evaluated with the resident and the acute care surgery team on morning rounds. She feels much better after antibiotic therapy. There is no evidence of bile leak on her hepatobiliary testing. She has a retained common bile duct stone. Gastroenterology evaluation has been requested. Future options may include repeat ERCP instrumentation and possible lithotripsy or stone removal. Certainly open common bile duct exploration remains an option if the patient is still symptomatic. We will continue supportive therapy. Adam Lakhani MD FACS
[2018-06-22] MEDS: *HR* Buprenorphine HCl 8 MG TAB.SUBL SL SCH (08:30)
[2018-06-22] MEDS: Ketorolac 15 MG/ML VIAL IVP SCH ×3 (08:32→16:57)
[2018-06-22] MEDS: FLUoxetine 20 MG CAPSULE PO SCH (09:47)
[2018-06-22] MEDS: Ondansetron 4 MG/2 ML VIAL IVP PRN (10:11)
[2018-06-22] MEDS: Pantoprazole 40 MG VIAL IVP SCH (10:12)
[2018-06-22] MEDS: Acetaminophen IV 1,000 MG/100 ML INFUS..BTL IVPB SCH ×2 (13:07→17:24)
--- NOTE | 2018-06-22 13:54 | Gastroenterology Consult Note ---
<Wang Calzada - Last Filed: 06/22/18 13:52> Date of Encounter: 06/22/18 Time of Encounter: 11:10 - Assessment and plan (1) Choledocholithiasis Current Visit: No Status: Acute Assessment and plan: CT A/P showed biliary stent, persistent mild central intrahepatic biliary ductal dilation, similar to 10/27/2018, persistent but improved pneumobilia. ERCP 05/26/2018 Dr. Melo: Duodenal ulcers, biliary sphincterotomy, CBD dilated, temporary stent in CBD, cholangitis, stone unable to be removed and will need to be crushed that future time. Plan for repeat ERCP as outpatient in 1-2 weeks to crush retained stone. Continue pain control, anti-emetics, and antibiotics. LFTs normal, continue to monitor. (2) Abdominal pain Current Visit: Yes Status: Acute Assessment and plan: Continue pain control and PPI. Continue Protonix 40 mg on discharge. Qualifiers: Abdominal location: right upper quadrant Qualified Code(s): R10.11 - Right upper quadrant pain (3) S/P laparoscopic cholecystectomy Current Visit: Yes Status: Acute Assessment and plan: s/p robotic cholecystectomy on 06/02/2018. (4) Nausea & vomiting Current Visit: No Status: Acute Assessment and plan: Symptoms improved with PPI and anti-emetics. Continue PPI and anti-emetic on discharge. Plan for repeat ERCP as outpatient. Qualifiers: Vomiting type: unspecified Vomiting Intractability: non-intractable Qualified Code(s): R11.2 - Nausea with vomiting, unspecified - Time Spent With Patient Total time spent is greater than 50% in coordination of care (as documented) at patient's floor/unit and/or counseling patient: GI History of Present Illness - Data of Consult Patient: known to practice within the last 3 years Consult date: 06/22/18 Requesting Physician: Marcus Richmond DO - Consult Narrative Reason for consult: s/p ERCP with stent, retained stone History of present illness: Ms. Hoover is a 38 year old female with PMHx of hepatitis C, IVDU, s/p robotic cholecystectomy on 06/02/2018 due to having cholecystitis with choledocholelithiasis. During that admission she underwent ERCP with stent jeaneth cement in common bile duct prior to cholecystectomy. She presented to the ED with abdominal pain, nausea, and vomiting. CT A/P showed biliary stent, persistent mild central intrahepatic biliary ductal dilation, similar to 10/27/2018, persistent but improved pneumobilia. HIDA scan showed no bile leak. LFT's normal on admission. Patient states symptoms worsened after KAN drain was removed as outpatient. She 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 been unable to keep anything down for several days. Procedures: ERCP 05/26/2018 Dr. Melo: Duodenal ulcers, biliary sphincterotomy, CBD dilated, temporary stent in CBD, cholangitis, stone unable to be removed and will need to be crushed that future time. NSAIDs: None Anticoagulation: None Past Med Surg Social Fam HX - Past Medical History Medical history: GERD, hepatitis, other Psychiatric history: anxiety, depression - Past Surgical History Surgical History: other Additional surgical history: L ovary removed Apr 2017. stent for gall bladder - Social History Smoking Status: Former smoker Smokeless Tobacco Status: No Alcohol use: none Drug use: marijuana - Family History Sister Adopted: No Living Status: Still Living Hx Family Cardiac Disorders: No Hx Family Respiratory Disorders: No Hx Family Cancer: No Hx Family GI Disorders: No Hx Family Endocrine Disorder: No Hx Family Neuromuscular Disorders: No Hx Family Neurologic Disorders: No Hx Family HEENT Disorders: No Hx Family Autoimmune Disorders: No Mother Adopted: No Living Status: Still Living Hx Family Cardiac Disorders: Yes (SC X 2) Hx Family Respiratory Disorders: No Hx Family Cancer: No Hx Family GI Disorders: No Hx Family Endocrine Disorder: No Hx Family Neuromuscular Disorders: No Hx Family Neurologic Disorders: No Hx Family HEENT Disorders: No Hx Family Autoimmune Disorders: No Father Living Status: Still Living - Gastrointestinal Gastrointestinal: Present: as per HPI - Constitutional Constitutional: as per HPI - EENT Eyes: as per HPI Ears: Present: as per HPI Nose, mouth and throat: Present: as per HPI - Cardiovascular Cardiovascular ROS: Present: as per HPI - Respiratory Respiratory IM: Present: as per HPI - Genitourinary Genitourinary: Absent: change in color, Urinary frequency - Neurological ROS Neurological GI: Present: as per HPI - Hematologic/Lymphatic Hematologic/Lymphatic pediatric: Present: as per HPI - Musculoskeletal Musculoskeletal ROS GI: Present: as per HPI - Integumentary Integumentary GI: Present: as per HPI - Psychiatric ROS Psychiatric GI: Present: as per HPI - Endocrine Endocrine IM: Present: as per HPI - Constitutional Vitals: Temp Pulse Resp BP Pulse Ox 97.6 F 90 17 117/71 100 06/22/18 11:26 06/22/18 11:26 06/22/18 11:26 06/22/18 11:26 06/22/18 11:26 General appearance: Present: cooperative, A&O X 3, no acute distress, answers questions appropriately - Head Head exam: Present: atraumatic, normocephalic - Eye Eye exam: Present: normal appearance, sclera anicteric - ENT ENT exam: Present: mucous membranes moist - Neck Neck exam general surgery: Present: normal inspection, trachea midline - Respiratory Respiratory exam: Present: CTAB - Cardiovascular Cardiovascular exam: Present: RRR, +S1, +S2 - GI/Abdominal GI/Abdominal exam: Present: soft, tenderness (epigastric, RUQ), no peritoneal signs. Absent: distended, firm, guarding - Rectal Rectal exam: Present: deferred - Extremities Exam Extremities exam: Present: warm - Neurological Exam Neurological exam: Present: no focal deficits - Psychiatric Psychiatric exam: Present: normal affect, normal mood - Skin Skin exam: Present: dry, intact, normal color, warm Results - Labs CBC & Chem 7: 06/22/18 04:34 06/22/18 04:34 Labs: Last Result Calcium 8.3 mg/dL (8.6-10.3) L 06/22/18 04:34 Troponin I < 0.03 ng/mL (< 0.04) 06/21/18 11:39 Entire Visit Hgb 10.9 g/dL (11.5-15.4) L D 06/22/18 04:34 Hct 33.9 % (35.3-44.9) L 06/22/18 04:34 Total Bilirubin 0.6 mg/dL (0.3-1.0) 06/22/18 04:34 AST 21 Units/L (13-39) 06/22/18 04:34 ALT 15 Units/L (7-52) 06/22/18 04:34 Lipase 4 Units/L (11-82) L 06/21/18 11:39 - Impressions Impressions Abdomen/Pelvis CT 06/21/18 13:56 IMPRESSION: Patient is status post interval cholecystectomy as compared to prior CT exam. There is a focal fluid collection noted within the surgical bed which may reflect an abscess or could reflect bile leak. There has been interval resolution of previously noted CT findings for acute pancreatitis. Pancreas is currently unremarkable. Biliary stent remains in place. No extrahepatic biliary ductal dilatation is noted. However, there is persistent mild central intrahepatic biliary ductal dilatation, similar to prior exam 05/27/2018. Persistent but improved pneumobilia. D/ / 06/21/2018 14:28:07 Filemon Palmer MD / [email or web address] Interpreting Provider: Filemon Palmer MD Bile Acid Absorption NM 06/21/18 15:55 IMPRESSION: No evidence of biliary leak. D/ / 06/21/2018 19:10:43 Donald Bhagat MD / [email or web address] Interpreting Provider: Donald Bhagat MD Consult Discharge Plan - Plan Referrals: NONE,PCP [Primary Care Provider] - <Mahad Melo - Last Filed: 06/22/18 17:44> Date of Encounter: 06/22/18 Time of Encounter: 14:00 - Time Spent With Patient Total time spent is greater than 50% in coordination of care (as documented) at patient's floor/unit and/or counseling patient: GI History of Present Illness - Data of Consult Requesting Physician: Marcus Richmond DO - Consult Narrative History of present illness: Ms. Hoover is a 38 year old female - Constitutional Vitals: Temp Pulse Resp BP Pulse Ox 97.6 F 84 18 114/67 98 06/22/18 16:55 06/22/18 16:55 06/22/18 16:55 06/22/18 16:55 06/22/18 16:55 Results - Labs CBC & Chem 7: 06/22/18 04:34 06/22/18 04:34 Labs: Last Result Calcium 8.3 mg/dL (8.6-10.3) L 06/22/18 04:34 Troponin I < 0.03 ng/mL (< 0.04) 06/21/18 11:39 Entire Visit Hgb 10.9 g/dL (11.5-15.4) L D 06/22/18 04:34 Hct 33.9 % (35.3-44.9) L 06/22/18 04:34 Total Bilirubin 0.6 mg/dL (0.3-1.0) 06/22/18 04:34 AST 21 Units/L (13-39) 06/22/18 04:34 ALT 15 Units/L (7-52) 06/22/18 04:34 Lipase 4 Units/L (11-82) L 06/21/18 11:39 - Impressions Impressions Bile Acid Absorption NM 06/21/18 15:55 IMPRESSION: No evidence of biliary leak. D/ / 06/21/2018 19:10:43 Donald Bhagat MD / [email or web address] Interpreting Provider: Donald Bhagat MD - Attending Attestation I have personally performed a face to face evaluation on this patient. I have reviewed and agree with the care plan. History and Exam by me shows: Patient seen. Per patient she may get the hospital because of nausea and vomiting does complain of some abdominal pain. On examination: Has upper mild abdominal tenderness. Assessment: Patient with obstructive jaundice status post ERCP with stent placement does has a large CBD stone. #2 nausea and vomiting. Recommendation: IV fluid pain control. A possible ERCP tomorrow or day after to jacki
--- NOTE | 2018-06-22 17:23 | Anesthesia Evaluation PreOp ---
Date of Encounter: 06/22/18 Time of Encounter: 17:20 - Past History Planned Operation: ERCP Cardiac History: CHF, Arrhythmia (ectopic atrial Rythym) Pulmonary History: Smoker ANNUAL GIVING MANAGER History: Denies Any Significant HX Other Medical History: Denies Any Significant HX, GERD Anesthesia History: No Prior Anesthetic Complications, Past Anesthesia (ERCP, left ovary resection) : No Test: Negative (06/21/2018) Alcohol Use: none Drug use: marijuana, IV Drug Use (hx IVDU (Heroin) - last use was June 10, 2016 per patient; now on buprenorphine) Medications and Allergies Buprenorphine HCl [Subutex] 10 mg SL DAILY 05/25/18 [History] FLUoxetine HCl [Prozac] 20 mg PO DAILY 05/25/18 [History] Docusate Sodium [Colace] 100 mg PO BID PRN #30 capsule 06/03/18 [Rx] Allergy/AdvReac Type Severity Reaction Status Date / Time No Known Allergies Allergy Verified 06/21/18 10:47 - Meds/Allergy Pre-op Review Medications Reviewed: Yes Allergies Reviewed: Yes Beta Blockers on Current Med List: No Anesthesia Results - Labs 06/22/18 04:34 06/22/18 04:34 - Imaging EKG: report reviewed (Sinus tachycardia Atrial premature complex) Additional studies: Cardiology Consult for Lap. Vickie. Pre-operative risk stratification for cholecystectomy. No known personal cardiac hx. Chest pressure/dyspnea/back pain overnight 05/31 in setting of acute cholecystitis. Now resolved. ECG 05/31 ectopic atrial rhythm--HR 40s-50s. HR now improved, 60s SR at bedside. 12 hr tele AVG HR 55. TTE EF 60%, normal wall motion, no significant valvular dysfunction. Prior to hospitalization, able to achieve 4 METS without chest pain or dyspnea. Anesthesia Exam Vital Signs/O2 Sat, Most Current Temp Pulse Resp BP Pulse Ox 97.6 F 84 18 114/67 98 06/22/18 16:55 06/22/18 16:55 06/22/18 16:55 06/22/18 16:55 06/22/18 16:55 - HEENT Pupil (Motor): Pupils equal, EOMI Mallampati: I Teeth: Poor dentition Oral Opening: Greater than 3 - ANNUAL GIVING MANAGER LOC: Oriented ANNUAL GIVING MANAGER Motor: Normal RUE, Normal LUE, Normal RLE, Normal LLE, Normal Face ANNUAL GIVING MANAGER Sensory: Normal: RUE, LUE, RLE, LLE, Face - Cardiac Rhythm: Regular Murmur: None JVD: No Carotid Bruit: No - Pulmonary Breath Sounds: bilateral Clear Respiratory Effort: Symmetrical Anesthesia Assess/Plan ASA Score: 3 Level of consciousness: Cooperative Anesthetic Plan: General Autologous Blood: Yes Monitoring Plan: Standard Monitors Recovery Plan: PACU
[2018-06-23] MEDS: Ketorolac 15 MG/ML VIAL IVP SCH ×4 (02:56→23:38)
[2018-06-23] MEDS: Metoclopramide 10 MG/2 ML VIAL IVP SCH ×4 (02:56→23:38)
[2018-06-23] MEDS: Pantoprazole 40 MG VIAL IVP SCH ×3 (02:56→23:38)
[2018-06-23] MEDS: Acetaminophen IV 1,000 MG/100 ML INFUS..BTL IVPB SCH ×4 (02:56→23:38)
[2018-06-23] MEDS: Piperacillin/Tazobactam 3.375 GM in 0.9 % Sodium Chloride Mini Bag 100 ML IVPB SCH (03:14)
[2018-06-23 04:40] LABS: Basophils % 0.6 %; Eosinophils # 0.2 K/mcL (0.0-0.6); Eosinophils % 3.4 %; Hematocrit 30.8 % (35.3-44.9); Hemoglobin 10.4 g/dL (11.5-15.4); Immature Granulocytes % 0.2 % (0-4); Lymphocytes # 2.7 K/mcL (0.6-4.6); Lymphocytes % 53.7 %; Mean Corpuscular HGB Conc 33.8 g/dL (31.6-35.5); Mean Corpuscular Hemoglobin 28.6 pg (28.0-33.3); Mean Corpuscular Volume 84.6 fL (83.0-100.0); Mean Platelet Volume 10.5 fL (9.4-12.4); Monocytes # 0.4 K/mcL (0.0-1.3); Monocytes % 7.2 %; Platelet Count 241 K/mcL (140-400); Red Blood Count 3.64 M/mcL (3.82-4.97); Red Cell Distribution Width 12.8 % (11.5-14.5); Segmented Neutrophils % 34.9 %
[2018-06-23 04:43] LABS: Neutrophils # 1.8 K/mcL (1.6-8.9)
[2018-06-23 04:59] LABS: Alanine Aminotransferase 15 Units/L (7-52); Albumin 3.4 g/dL (3.5-5.7); Albumin/Globulin Ratio 1.2 (1.1-2.2); Alkaline Phosphatase 81 Units/L (34-104); Aspartate Amino Transferase 18 Units/L (13-39); BUN/Creatinine Ratio 5 (6-26); Bilirubin,Total 0.7 mg/dL (0.3-1.0); Blood Urea Nitrogen 2 mg/dL (6-20); Calcium 8.4 mg/dL (8.6-10.3); Carbon Dioxide 25 mEq/L (23-29); Chloride 105 mEq/L (98-107); Globulin 2.8 g/dL (2.4-3.5); Glucose 81 mg/dL (70-105); Osmolality,Calculated 283 (280-300); Potassium 3.3 mEq/L (3.5-5.1); Sodium 139 mEq/L (136-145); Total Protein 6.2 g/dL (6.4-8.9); eGFR For Non-African Americans > 60 (> 60)
[2018-06-23 05:25] LABS: Reactive Lymphocytes Present (Not Present)
[2018-06-23 05:26] LABS: Platelet Estimate Normal (Normal)
--- NOTE | 2018-06-23 08:39 | Internal Med Progress Note ---
<Naomy Bob N - Last Filed: 06/23/18 13:10> Hospitalist Progress Note - Encounter Date of Encounter: 06/23/18 Time of Encounter: 08:39 - Subjective Interval History: Patient seen and evaluated at the bedside this morning. She reports improvement in nausea and abdominal pain since yesterday, and denies any fevers or chills. Per GI, patient is planned for repeat ERCP this evening for crushing of retained stone in bile duct. Patient denies any acute complaints or concerns at this time. - Exam Vitals: Temp Pulse Resp BP Pulse Ox 97.9 F 73 16 129/76 98 06/23/18 07:54 06/23/18 07:54 06/23/18 07:54 06/23/18 07:54 06/23/18 07:54 Exam: GENERAL: Well-developed, well-nourished adult female in no acute distress. HEENT: Atraumatic and normocephalic. CARDIOVASCULAR: Regular rate and rhythm. S1 and S2 present. No murmurs, gallops, or rubs. RESPIRATORY: Clear to auscultation bilaterally. Chest rises and falls symmetrically without accessory muscle use. GASTROINTESTINAL: Abdomen is soft and nondistended. Bowel sounds present. Abdomen is minimally tender to palpation. EXTREMITIES: No clubbing, cyanosis, or edema. SKIN: Warm, dry, and intact. NEUROLOGIC: Alert and oriented x3. Patient is cooperative with exam and answers questions appropriately. No apparent focal deficits. PSYCHIATRIC: Appropriate mood and affect. - Assessment and Plan (1) Abdominal pain Current Visit: Yes Status: Acute Assessment and Plan: Patient presented to the emergency department due to worsening abdominal pain associated with nausea and vomiting. Patient is s/p laparoscopic cholecystectomy approximately [address] of the abdomen and pelvis demonstrated antra for cholecystectomy since prior CT exam. Focal fluid collection noted within the surgical bed which may miranda flecked an abscess or bile leak. Biliary stent in place, with no extrahepatic biliary ductal dilation; however, there is persistent mild central intrahepatic biliary ductal dilation, similar to prior exam on 05/27/18. Persistent but improved pneumobilia noted. HIDA scan demonstrated no evidence of biliary leak. ERCP on 05/26/18 was significant for a stone in the common bile duct, which at that time, was stated to require crushing a few weeks after cholecystectomy. Per GI consult yesterday, patient is planned for repeat ERCP this evening to crush retained gallstone. - Continue medical management, including pain control, PPI, and antiemetics. - Repeat ERCP this evening; patient is currently NPO. - Per surgery, possible bile duct exploration if ERCP fails to eliminate retained stone. - Appreciate surgery and gastroenterology recommendations regarding management of this problem. (2) Choledocholithiasis Current Visit: No Status: Acute Assessment and Plan: History of choledocholithiasis s/p stent placement. Plan as above. (3) Hep C w/o coma, chronic Current Visit: No Status: Chronic (4) Opiate dependence Current Visit: Yes Status: Chronic Assessment and Plan: - Continue home medication of subutex. DVT Prophylaxis: - Heparin SQ. - Time Spent with Patient Total time spent is greater than 50% in coordination of care (as documented) at patient's floor/unit and/or counseling patient: Internal Medicine: Result - Labs CBC & Chem 7: 06/23/18 04:08 06/23/18 04:08 Labs: Short CBC 06/23/18 Range/Units 04:08 WBC 5.0 (4.3-11.1) K/mcL Hgb 10.4 L (11.5-15.4) g/dL Hct 30.8 L (35.3-44.9) % Plt Count 241 (140-400) K/mcL Neutrophils # 1.8 (1.6-8.9) K/mcL BMP 06/23/18 04:08 Sodium 139 Potassium 3.3 L Chloride 105 Carbon Dioxide 25 BUN 2 L Creatinine 0.43 L Glucose 81 Calcium 8.4 L Liver Function 06/23/18 Range/Units 04:08 Total Bilirubin 0.7 (0.3-1.0) mg/dL AST 18 (13-39) Units/L ALT 15 (7-52) Units/L Alkaline Phosphatase 81 (34-104) Units/L Albumin 3.4 L (3.5-5.7) g/dL - Impressions Impressions Bile Acid Absorption NM 06/21/18 15:55 IMPRESSION: No evidence of biliary leak. D/ / 06/21/2018 19:10:43 Donald Bhagat MD / earnold Interpreting Provider: Donald Bhagat MD Consult Discharge Plan - Plan Referrals: NONE,PCP [Primary Care Provider] - <Marcus Richmond - Last Filed: 06/23/18 16:27> Hospitalist Progress Note - Encounter Date of Encounter: 06/23/18 - Exam Vitals: Temp Pulse Resp BP Pulse Ox 98.0 F 71 16 146/88 99 06/23/18 15:47 06/23/18 15:47 06/23/18 15:47 06/23/18 15:47 06/23/18 15:47 - Assessment and Plan (1) Abdominal pain Current Visit: Yes Status: Acute (2) Choledocholithiasis Current Visit: No Status: Acute (3) Hep C w/o coma, chronic Current Visit: No Status: Chronic (4) Opiate dependence Current Visit: Yes Status: Chronic - Time Spent with Patient Total time spent is greater than 50% in coordination of care (as documented) at patient's floor/unit and/or counseling patient: Internal Medicine: Result - Labs CBC & Chem 7: 06/23/18 04:08 06/23/18 04:08 Labs: Short CBC 06/23/18 Range/Units 04:08 WBC 5.0 (4.3-11.1) K/mcL Hgb 10.4 L (11.5-15.4) g/dL Hct 30.8 L (35.3-44.9) % Plt Count 241 (140-400) K/mcL Neutrophils # 1.8 (1.6-8.9) K/mcL BMP 06/23/18 04:08 Sodium 139 Potassium 3.3 L Chloride 105 Carbon Dioxide 25 BUN 2 L Creatinine 0.43 L Glucose 81 Calcium 8.4 L Liver Function 06/23/18 Range/Units 04:08 Total Bilirubin 0.7 (0.3-1.0) mg/dL AST 18 (13-39) Units/L ALT 15 (7-52) Units/L Alkaline Phosphatase 81 (34-104) Units/L Albumin 3.4 L (3.5-5.7) g/dL - Impressions Impressions Bile Acid Absorption NM 06/21/18 15:55 IMPRESSION: No evidence of biliary leak. D/ / 06/21/2018 19:10:43 Donald Bhagat MD / shimon Interpreting Provider: Donald Bhagat MD - Attending Attestation I examined this patient and my medical decision-making was reviewed with the Resident Physician on 06/23. I agree with the documented findings, disposition and treatment plan as described except to the extent set forth below. Ms Hoover is currently admitted with acute abdominal pain due to choledocholithiasis. She remains moderate to high risk due to potential for worsening clinical status. Ms Hoover is waiting ERCP. She feels hungry. No fever or chills. No nausea. Exam alert Comfortable Mucus membranes dry Heart reg and not tachy No wheeze abd soft No edema I/P 1. Choledocholithiasis - for ERCP today 2. Recent cholecystectomy Further diagnoses and plan as above. <Naomy Bob N - Last Filed: 06/23/18 13:10> (1) Abdominal pain Qualifiers: Abdominal location: right upper quadrant Qualified Code(s): R10.11 - Right upper quadrant pain (4) Opiate dependence Qualifiers: Substance use status: in remission Qualified Code(s): F11.21 - Opioid dependence, in remission <Marcus Richmond A - Last Filed: 06/23/18 16:27> (1) Abdominal pain Qualifiers: Abdominal location: right upper quadrant Qualified Code(s): R10.11 - Right upper quadrant pain (4) Opiate dependence Qualifiers: Substance use status: in remission Qualified Code(s): F11.21 - Opioid dependence, in remission
--- NOTE | 2018-06-23 09:40 | AcuteCareSurgery Progress Note ---
<Itzel Castro - Last Filed: 06/23/18 09:41> Date of Encounter: 06/23/18 Time of Encounter: 09:38 - Assessment and Plan (1) Choledocholithiasis Current Visit: No Status: Acute This is a 38-year-old female with past medical history significant for GERD and hepatitis who presented to the [facility] ED with complaints of epigastric/right upper quadrant abdominal pain. Associated with nausea and vomiting. She is currently postop day #20 status post laparoscopic cholecystectomy. Notes that she initially felt better after surgery. However as of 5 days ago she has had intractable nausea and vomiting. Exam was notable for right upper quadrant tenderness - Patient additionally has biliary stent in place that is patent - CT abdomen and pelvis showed focal fluid collection within surgical bed after cholecystectomy - HIDA scan was negative - no evidence of biliary leak PLAN: Patient remains afebrile without leukocytosis. She has retained stone in distal common bile duct that is nonobstructing - GI recommendations appreciated - Continue antibiotics - Keep patient nothing by mouth - Pending ERCP today; if GI intervention is unsuccessful, may consider common bile duct stone surgical exploration tomorrow - Scheduled Tylenol and Toradol - Otherwise medical management per primary team Subjective Patient reports: no new complaints, feels better, pain is less, voiding w/o difficulty, flatus, bowel movement, afebrile Narrative: Patient was seen and examined at bedside this morning. No overnight complaints. Denies any abdominal pain, nausea, vomiting. She is able to tolerate liquids yesterday. Patient was seen by GI today. She is pending an ERCP this morning/afternoon. She remains afebrile without leukocytosis. If GI intervention does not resolve issue, surgery may consider common bile duct exploration tomorrow. Objective Vital Signs - Last 8 Hours Temp Pulse Resp BP Pulse Ox 06/23/18 07:54 97.9 F 73 16 129/76 98 06/23/18 03:34 98.0 F 87 14 109/69 97 Intake and Output 06/22/18 06/23/18 06/23/18 23:59 07:59 15:59 Intake Total 1440 / 1440 100 / 100 Balance 1440 / 1440 100 / 100 Intake: IV Fluids 1200 / 1200 100 / 100 0.9 % Sodium Chloride 1,000 ML 1000 / 1000 @ 125 mls/hr IVC .Q8H [facility] Rx#: [id number] Ofirmev 1,000 mg/100 ml 1,000 100 / 100 100 / 100 mg In 100 ml @ 400 mls/hr IVPB Q6HR [facility] Rx#:[id number] Zosyn 3.375 GM In 0.9 % Sodium 100 / 100 Chloride (Mini-Bag +) 100 ML @ 25 mls/hr IVPB Q8H [facility] Rx#: [id number] Oral 240 / 240 Other: Weight 79 kg Patient Weight 06/23/18 23:59 Weight 79 kg - General physical appearance well developed, well nourished, no distress - Eyes PERRL, normal ocular movement - ENT normal nares, normal mucosa, no congestion - Respiratory normal expansion, normal respiratory effort, clear to auscultation - Cardiovascular Cardiovascular exam: Present: RRR, regular rhythm, no murmurs/rubs/gallops - Abdomen Abdomen: Present: bowel sounds present, soft, tender (Mild right upper quadrant tenderness) Abdominal Tenderness: RUQ - Incision Incision: Present: clean and dry, intact - Neurologic CN 2-12 grossly intact - Psychiatric oriented to time, oriented to person, oriented to place, speech is normal, memory intact - Labs 06/23/18 04:08 06/23/18 04:08 Diabetes panel 06/23/18 Range/Units 04:08 Sodium 139 (136-145) mEq/L Potassium 3.3 L (3.5-5.1) mEq/L Chloride 105 (98-107) mEq/L Carbon Dioxide 25 (23-29) mEq/L BUN 2 L (6-20) mg/dL Creatinine 0.43 L (0.60-1.20) mg/dL Glucose 81 (70-105) mg/dL Calcium 8.4 L (8.6-10.3) mg/dL AST 18 (13-39) Units/L ALT 15 (7-52) Units/L Alkaline Phosphatase 81 (34-104) Units/L Albumin 3.4 L (3.5-5.7) g/dL Calcium panel 06/23/18 Range/Units 04:08 Calcium 8.4 L (8.6-10.3) mg/dL Albumin 3.4 L (3.5-5.7) g/dL Pituitary panel 06/23/18 Range/Units 04:08 Sodium 139 (136-145) mEq/L Potassium 3.3 L (3.5-5.1) mEq/L Chloride 105 (98-107) mEq/L Carbon Dioxide 25 (23-29) mEq/L BUN 2 L (6-20) mg/dL Creatinine 0.43 L (0.60-1.20) mg/dL Glucose 81 (70-105) mg/dL Calcium 8.4 L (8.6-10.3) mg/dL Adrenal panel 06/23/18 Range/Units 04:08 Sodium 139 (136-145) mEq/L Potassium 3.3 L (3.5-5.1) mEq/L Chloride 105 (98-107) mEq/L Carbon Dioxide 25 (23-29) mEq/L BUN 2 L (6-20) mg/dL Creatinine 0.43 L (0.60-1.20) mg/dL Glucose 81 (70-105) mg/dL Calcium 8.4 L (8.6-10.3) mg/dL Total Bilirubin 0.7 (0.3-1.0) mg/dL AST 18 (13-39) Units/L ALT 15 (7-52) Units/L Alkaline Phosphatase 81 (34-104) Units/L Albumin 3.4 L (3.5-5.7) g/dL - Imaging CT scan - abdomen: report reviewed CT scan - pelvis: report reviewed Consult Discharge Plan - Plan Referrals: NONE,PCP [Primary Care Provider] - <Yobany Dueñas - Last Filed: 06/23/18 18:58> Date of Encounter: 06/23/18 Objective Vital Signs - Last 8 Hours Temp Pulse Resp BP Pulse Ox 06/23/18 17:26 78 18 145/83 97 06/23/18 15:47 98.0 F 71 16 146/88 99 06/23/18 11:44 97.9 F 100 16 142/94 97 Intake and Output 06/23/18 06/23/18 06/23/18 07:59 15:59 23:59 Intake Total 1100 / 1100 100 / 100 Balance 1100 / 1100 100 / 100 Intake: IV Fluids 1100 / 1100 100 / 100 0.9 % Sodium Chloride 1,000 ML 1000 / 1000 @ 125 mls/hr IVC .Q8H [facility] Rx#: [id number] Ofirmev 1,000 mg/100 ml 1,000 100 / 100 100 / 100 mg In 100 ml @ 400 mls/hr IVPB Q6H ON LICENSE OF [facility] Rx#:[id number] Other: Weight 79 kg Patient Weight 06/23/18 23:59 Weight 79 kg - Labs 06/23/18 04:08 06/23/18 04:08 Diabetes panel 06/23/18 Range/Units 04:08 Sodium 139 (136-145) mEq/L Potassium 3.3 L (3.5-5.1) mEq/L Chloride 105 (98-107) mEq/L Carbon Dioxide 25 (23-29) mEq/L BUN 2 L (6-20) mg/dL Creatinine 0.43 L (0.60-1.20) mg/dL Glucose 81 (70-105) mg/dL Calcium 8.4 L (8.6-10.3) mg/dL AST 18 (13-39) Units/L ALT 15 (7-52) Units/L Alkaline Phosphatase 81 (34-104) Units/L Albumin 3.4 L (3.5-5.7) g/dL Calcium panel 06/23/18 Range/Units 04:08 Calcium 8.4 L (8.6-10.3) mg/dL Albumin 3.4 L (3.5-5.7) g/dL Pituitary panel 06/23/18 Range/Units 04:08 Sodium 139 (136-145) mEq/L Potassium 3.3 L (3.5-5.1) mEq/L Chloride 105 (98-107) mEq/L Carbon Dioxide 25 (23-29) mEq/L BUN 2 L (6-20) mg/dL Creatinine 0.43 L (0.60-1.20) mg/dL Glucose 81 (70-105) mg/dL Calcium 8.4 L (8.6-10.3) mg/dL Adrenal panel 06/23/18 Range/Units 04:08 Sodium 139 (136-145) mEq/L Potassium 3.3 L (3.5-5.1) mEq/L Chloride 105 (98-107) mEq/L Carbon Dioxide 25 (23-29) mEq/L BUN 2 L (6-20) mg/dL Creatinine 0.43 L (0.60-1.20) mg/dL Glucose 81 (70-105) mg/dL Calcium 8.4 L (8.6-10.3) mg/dL Total Bilirubin 0.7 (0.3-1.0) mg/dL AST 18 (13-39) Units/L ALT 15 (7-52) Units/L Alkaline Phosphatase 81 (34-104) Units/L Albumin 3.4 L (3.5-5.7) g/dL - Attending Attestation I have personally seen and examined the patient. I have reviewed pertinent l abs, imaging, progress notes, including this one. I have discussed the plan in thorough detail with the resident and nurse practitioner. I agree with the above assessment and plan and wish to add the following... awaiting ERCP to determine if CBDE needs to be done
[2018-06-23] MEDS: 0.9 % Sodium Chloride 1,000 ML IVC SCH ×4 (10:23→21:13)
[2018-06-23] MEDS: *HR* Heparin 5,000 UNIT/ML VIAL SQ SCH ×3 (10:27→23:54)
[2018-06-23] MEDS: *HR* Buprenorphine HCl 8 MG TAB.SUBL SL SCH (10:32)
[2018-06-23] MEDS: FLUoxetine 20 MG CAPSULE PO SCH (10:46)
[2018-06-23] MEDS ORDERED: Piperacillin/Tazobactam 3.375 GM in 0.9 % Sodium Chloride Mini Bag 100 ML IVPB SCH (11:00)
[2018-06-23] MEDS ORDERED: Dexamethasone 4 MG/ML VIAL ONE (17:22)
[2018-06-23] MEDS ORDERED: Ondansetron 4 MG/2 ML VIAL ONE ×2 (17:22→19:21)
[2018-06-23] MEDS ORDERED: *HR* FentaNYL (PF) 100 MCG/2 ML VIAL ONE ×2 (17:22→18:14)
[2018-06-23] MEDS ORDERED: Lidocaine -MPF 2% 2 ML VIAL ONE (17:22)
[2018-06-23] MEDS ORDERED: *HR* Propofol 200 MG/20 ML VIAL IVP ONE (17:23)
[2018-06-23] MEDS ORDERED: Ondansetron 4 MG/2 ML VIAL IVP ONE (19:08)
[2018-06-23] MEDS ORDERED: *HR* OxyCODONE Immed Rel 5 MG TABLET PO ONE (19:08)
[2018-06-23] MEDS ORDERED: *HR* Promethazine 25 MG/ML VIAL IVP PRN (19:09)
--- NOTE | 2018-06-23 19:10 | Event Note ---
Date of Encounter: 06/23/18 Time of Encounter: 18:00 Patient ERCP: Previously placed stent removal patient had a large stone in the common hepatic duct about 1.5 cm in size the CBD below the stone is only 6-7 mm in size. Tried to grab the stone with stone system manager basket but there is not enough space for the basket to open as dilation of the common hepatic duct is very focal and stuck in a small space and not enough to open crushing basket. Another stent placed. Recommendation: Patient will be referred to [facility] to Dr. Avendano as an outpatient for bursting the stone with the spyglass.
[2018-06-23] MEDS: *HR* HYDROmorphone (PF) 1 MG/ML SYRINGE IVP PRN ×4 (19:33→19:50)
--- NOTE | 2018-06-23 20:31 | Anesthesia Evaluation Post Op ---
Date of Encounter: 06/23/18 Time of Encounter: 20:30 - Vital Signs Vital Signs: Vital Signs/O2 Sat, Most Current Temp Pulse Resp BP Pulse Ox 98.1 F 66 12 141/88 97 06/23/18 20:01 06/23/18 20:01 06/23/18 20:01 06/23/18 20:01 06/23/18 20:01 - Lungs Lungs: Clear Ascult./Percussion - Airway Airway: Non-obstructed - Cardiovascular Regular Rate - Mental Status Mental Status: Alert & Oriented, Answers Appropriately - Pain Pain Scale: 0 Pain Scale used: Numeric (1 - 10) - Nausea Vomiting Nausea Vomiting: Not Present - Hydration Hydration: Ice chips, Has not voided - Discharge PostOp Status: Transfer Patient to floor
[2018-06-23] MEDS: Ondansetron 4 MG/2 ML VIAL IVP PRN (21:09)
[2018-06-24] MEDS: Acetaminophen IV 1,000 MG/100 ML INFUS..BTL IVPB SCH ×3 (03:37→15:22)
[2018-06-24] MEDS: Ketorolac 15 MG/ML VIAL IVP SCH ×3 (03:38→15:22)
[2018-06-24] MEDS: Metoclopramide 10 MG/2 ML VIAL IVP SCH ×3 (03:38→15:22)
[2018-06-24 04:59] LABS: Basophils % 0.2 %; Hematocrit 33.9 % (35.3-44.9); Hemoglobin 11.5 g/dL (11.5-15.4); Immature Granulocytes % 0.2 % (0-4); Lymphocytes # 1.5 K/mcL (0.6-4.6); Lymphocytes % 23.4 %; Mean Corpuscular HGB Conc 33.9 g/dL (31.6-35.5); Mean Corpuscular Hemoglobin 28.8 pg (28.0-33.3); Mean Corpuscular Volume 84.8 fL (83.0-100.0); Monocytes # 0.1 K/mcL (0.0-1.3); Monocytes % 1.8 %; Neutrophils # 4.8 K/mcL (1.6-8.9); Platelet Count 266 K/mcL (140-400); Red Cell Distribution Width 12.8 % (11.5-14.5); Segmented Neutrophils % 74.4 %
[2018-06-24 05:20] LABS: Alanine Aminotransferase 16 Units/L (7-52); Albumin 3.7 g/dL (3.5-5.7); Albumin/Globulin Ratio 1.2 (1.1-2.2); Alkaline Phosphatase 90 Units/L (34-104); Aspartate Amino Transferase 19 Units/L (13-39); BUN/Creatinine Ratio 5 (6-26); Bilirubin,Total 0.6 mg/dL (0.3-1.0); Blood Urea Nitrogen 2 mg/dL (6-20); Calcium 8.9 mg/dL (8.6-10.3); Carbon Dioxide 22 mEq/L (23-29); Chloride 101 mEq/L (98-107); Glucose 107 mg/dL (70-105); Osmolality,Calculated 277 (280-300); Platelet Estimate Normal (Normal); Sodium 135 mEq/L (136-145); Total Protein 6.7 g/dL (6.4-8.9); eGFR For Non-African Americans > 60 (> 60)
[2018-06-24 05:21] LABS: Large Platelets Present (Not Present); Reactive Lymphocytes Present (Not Present)
[2018-06-24] MEDS: *HR* Heparin 5,000 UNIT/ML VIAL SQ SCH ×2 (05:27→12:37)
--- NOTE | 2018-06-24 08:11 | AcuteCareSurgery Progress Note ---
Addendum entered and electronically signed by Tanesha Aj CNP 06/24/18 08:16: Please notee, pt can follow with [facility] as outpatient and should follow with [facility] in 2 weeks. Surgery will sign off. Original Note: <Tanesha Aj - Last Filed: 06/24/18 08:14> Date of Encounter: 06/24/18 Time of Encounter: 08:09 - Assessment and Plan (1) Choledocholithiasis Current Visit: Yes Status: Chronic s/p ERCP 06/23 noted filling defect consistent with stones seen on the choliangiogram. Approximately 1.5 cm and is in the common hepatic duct. The distal column bile duct is 6 mm in size. Lithotripsy was unsuccessful. A temporary stent was placed. Open CBD exploration was offered by surgery. Pt refused. She would prefer transfer to [facility]. (2) S/P laparoscopic cholecystectomy Current Visit: No Status: Chronic ERCP 05/27/2018 and temp stent, noted CBD stone Robot zakiya 06/02/2018 Noted retained cbd stone Subjective Patient reports: no new complaints, afebrile Objective Vital Signs - Last 8 Hours Temp Pulse Resp BP Pulse Ox 06/24/18 07:27 98.1 F 81 20 138/87 98 06/24/18 04:08 98.1 F 75 16 105/66 97 06/24/18 00:47 160/118 Intake and Output 06/23/18 06/24/18 06/24/18 23:59 07:59 15:59 Intake Total 100 / 100 Output Total 600 / 600 500 / 500 Balance -500 / -500 -500 / -500 Intake: IV Fluids 100 / 100 Ofirmev 1,000 mg/100 ml 1,000 100 / 100 mg In 100 ml @ 400 mls/hr IVPB Q6H [facility] Rx#:[id number] Output: Urine 600 / 600 500 / 500 Other: # Voids 1 1 Weight 79.7 kg Patient Weight 06/24/18 23:59 Weight 79.7 kg - General physical appearance well nourished, no distress - Eyes normal ocular movement - ENT atraumatic, normocephalic - Neck Neck exam: trachea midline - Respiratory normal expansion, normal respiratory effort, clear to auscultation - Cardiovascular Cardiovascular exam: Present: RRR - Abdomen Abdomen: Present: bowel sounds present, soft, non tender - Incision Incision: Present: clean and dry, intact - Integumentary no rash - Neurologic CN 2-12 grossly intact, normal coordination, normal sensation - Musculoskeletal normal gait, normal posture - Psychiatric oriented to time, oriented to person, oriented to place, speech is normal, memory intact - Labs 06/24/18 04:17 06/24/18 04:17 Diabetes panel 06/24/18 Range/Units 04:17 Sodium 135 L (136-145) mEq/L Potassium 4.0 (3.5-5.1) mEq/L Chloride 101 (98-107) mEq/L Carbon Dioxide 22 L (23-29) mEq/L BUN 2 L (6-20) mg/dL Creatinine 0.42 L (0.60-1.20) mg/dL Glucose 107 H (70-105) mg/dL Calcium 8.9 (8.6-10.3) mg/dL AST 19 (13-39) Units/L ALT 16 (7-52) Units/L Alkaline Phosphatase 90 (34-104) Units/L Albumin 3.7 (3.5-5.7) g/dL Calcium panel 06/24/18 Range/Units 04:17 Calcium 8.9 (8.6-10.3) mg/dL Albumin 3.7 (3.5-5.7) g/dL Pituitary panel 06/24/18 Range/Units 04:17 Sodium 135 L (136-145) mEq/L Potassium 4.0 (3.5-5.1) mEq/L Chloride 101 (98-107) mEq/L Carbon Dioxide 22 L (23-29) mEq/L BUN 2 L (6-20) mg/dL Creatinine 0.42 L (0.60-1.20) mg/dL Glucose 107 H (70-105) mg/dL Calcium 8.9 (8.6-10.3) mg/dL Adrenal panel 06/24/18 Range/Units 04:17 Sodium 135 L (136-145) mEq/L Potassium 4.0 (3.5-5.1) mEq/L Chloride 101 (98-107) mEq/L Carbon Dioxide 22 L (23-29) mEq/L BUN 2 L (6-20) mg/dL Creatinine 0.42 L (0.60-1.20) mg/dL Glucose 107 H (70-105) mg/dL Calcium 8.9 (8.6-10.3) mg/dL Total Bilirubin 0.6 (0.3-1.0) mg/dL AST 19 (13-39) Units/L ALT 16 (7-52) Units/L Alkaline Phosphatase 90 (34-104) Units/L Albumin 3.7 (3.5-5.7) g/dL Consult Discharge Plan - Plan Referrals: [facility] [Other] (FE; For Lithotripsy, retain common bile duct stone. s/p ERCP and stenting x2. Offered CBD dissection. Pt refused; Would like lithotripsy instead.) NONE,PCP [Primary Care Provider] - Mahad Melo MD [Partnered Physician] - (Appointment has been requested. Office will call with date and time of appointment. ) <Adam Lakhani - Last Filed: 06/24/18 12:21> Date of Encounter: 06/24/18 Objective Vital Signs - Last 8 Hours Temp Pulse Resp BP Pulse Ox 06/24/18 11:19 98.1 F 82 17 143/82 100 06/24/18 07:27 98.1 F 81 20 138/87 98 Intake and Output 06/23/18 06/24/18 06/24/18 23:59 07:59 15:59 Intake Total 100 / 100 100 / 100 Output Total 600 / 600 500 / 500 Balance -500 / -500 -400 / -400 Intake: IV Fluids 100 / 100 100 / 100 Ofirmev 1,000 mg/100 ml 1,000 100 / 100 100 / 100 mg In 100 ml @ 400 mls/hr IVPB Q6H [facility] Rx#:[id number] Output: Urine 600 / 600 500 / 500 Other: Meal Breakfast Percent of Meal Consumed 0% # Voids 1 1 Weight 79.7 kg Patient Weight 06/24/18 23:59 Weight 79.7 kg - Labs 06/24/18 04:17 18 04:17 Diabetes panel 06/24/18 Range/Units 04:17 Sodium 135 L (136-145) mEq/L Potassium 4.0 (3.5-5.1) mEq/L Chloride 101 (98-107) mEq/L Carbon Dioxide 22 L (23-29) mEq/L BUN 2 L (6-20) mg/dL Creatinine 0.42 L (0.60-1.20) mg/dL Glucose 107 H (70-105) mg/dL Calcium 8.9 (8.6-10.3) mg/dL AST 19 (13-39) Units/L ALT 16 (7-52) Units/L Alkaline Phosphatase 90 (34-104) Units/L Albumin 3.7 (3.5-5.7) g/dL Calcium panel 06/24/18 Range/Units 04:17 Calcium 8.9 (8.6-10.3) mg/dL Albumin 3.7 (3.5-5.7) g/dL Pituitary panel 06/24/18 Range/Units 04:17 Sodium 135 L (136-145) mEq/L Potassium 4.0 (3.5-5.1) mEq/L Chloride 101 (98-107) mEq/L Carbon Dioxide 22 L (23-29) mEq/L BUN 2 L (6-20) mg/dL Creatinine 0.42 L (0.60-1.20) mg/dL Glucose 107 H (70-105) mg/dL Calcium 8.9 (8.6-10.3) mg/dL Adrenal panel 06/24/18 Range/Units 04:17 Sodium 135 L (136-145) mEq/L Potassium 4.0 (3.5-5.1) mEq/L Chloride 101 (98-107) mEq/L Carbon Dioxide 22 L (23-29) mEq/L BUN 2 L (6-20) mg/dL Creatinine 0.42 L (0.60-1.20) mg/dL Glucose 107 H (70-105) mg/dL Calcium 8.9 (8.6-10.3) mg/dL Total Bilirubin 0.6 (0.3-1.0) mg/dL AST 19 (13-39) Units/L ALT 16 (7-52) Units/L Alkaline Phosphatase 90 (34-104) Units/L Albumin 3.7 (3.5-5.7) g/dL - Attending Attestation I have personally performed a face to face evaluation on this patient. I have reviewed and agree with the care plan. History and Exam by me shows: The patient has a retained common bile duct stone. Lithotripsy failed. The patient was given the option of repeat lithotripsy attempt at the [facility] via ERCP or open common bile duct exploration. The patient has chosen ERCP with repeat attempt at lithotripsy. The arrangements for this will be made by gastroenterology. Surgery will sign off. Adam Lakhani MD FACS
[2018-06-24] MEDS: *HR* Buprenorphine HCl 8 MG TAB.SUBL SL SCH (08:30)
[2018-06-24] MEDS: FLUoxetine 20 MG CAPSULE PO SCH (08:31)
[2018-06-24] MEDS: 0.9 % Sodium Chloride 1,000 ML IVC SCH ×2 (08:32→10:05)
--- NOTE | 2018-06-24 09:45 | Discharge Summary ---
<Marcus Richmond - Last Filed: 06/24/18 18:04> Orders not resulted at time of discharge: Pending orders 06/21/18 11:39 Culture,Blood [BC] Stat Date of Encounter: 06/24/18 - Discharge Diagnosis (1) Abdominal pain Status: Acute Qualifiers: Abdominal location: right upper quadrant Qualified Code(s): R10.11 - Right upper quadrant pain (2) Choledocholithiasis Priority: Primary Status: Chronic (3) Hep C w/o coma, chronic Status: Chronic (4) Opiate dependence Status: Chronic Qualifiers: Substance use status: in remission Qualified Code(s): F11.21 - Opioid dependence, in remission Hospital course: Ms. Hoover is a 38 year old female - Time Spent with Patient Total time spent providing and/or coordinating discharge services: 35min - Discharge Medications Prescriptions: New Ibuprofen 800 mg PO Q8H #90 tablet Ondansetron ODT [Zofran ODT] 4 mg SL Q6HR #20 tab.rapdis Continue Buprenorphine HCl [Subutex] 10 mg SL DAILY FLUoxetine HCl [Prozac] 20 mg PO DAILY Docusate Sodium [Colace] 100 mg PO BID PRN #30 capsule PRN Reason: Contstipation Home Medications: Buprenorphine HCl [Subutex] 10 mg SL DAILY 05/25/18 [History] FLUoxetine HCl [Prozac] 20 mg PO DAILY 05/25/18 [History] Docusate Sodium [Colace] 100 mg PO BID PRN #30 capsule 06/03/18 [Rx] Ibuprofen 800 mg PO Q8H #90 tablet 06/24/18 [Rx] Ondansetron ODT [Zofran ODT] 4 mg SL Q6HR #20 tab.rapdis 06/24/18 [Rx] Allergies/Adverse Reactions: Allergy/AdvReac Type Severity Reaction Status Date / Time No Known Allergies Allergy Verified 06/21/18 10:47 Date of admission: 06/21/18 18:51 Primary care physician: PCP NONE Consults: 06/21/18 15:06 Consult to Surgery [CONS] Stat Consulting Provider: Acute Care Surgery Reason for Consult: possible abscess vs leak post-op zakiya Time Notified: 15:07 Call Completed: Yes 06/21/18 17:45 Consult to Gastroenterology [CONS] Stat Consulting Provider: [facility] [place] Reason for Consult: s/p ERCP with stent and retained stone Call Completed: No - Constitutional Vitals: Temp Pulse Resp BP Pulse Ox 98.1 F 82 17 143/82 100 06/24/18 11:19 06/24/18 11:19 06/24/18 11:19 06/24/18 11:19 06/24/18 11:19 - Patient Status Disposition: Home, Self-Care Condition: Fair - Discharge Instructions Instructions: Ibuprofen (By mouth), Ondansetron (By mouth) Follow Up With: [facility] [Other] (FE; For Lithotripsy, retain common bile duct stone. s/p ERCP and stenting x2. Offered CBD dissection. Pt refused; Would like lithotripsy instead.) NONE,PCP [Primary Care Provider] - Mahad Melo MD [Partnered Physician] - (Appointment has been requested. Office will call with date and time of appointment. ) Additional Instructions: Follow up with your PCP in 3-5 days for reevaluation. Follow up with Dr. Melo in gastroenterology as scheduled for referral to [facility]. Continue taking your regular home medications. Take zofran 4mg every 6 hours as needed for nausea. Return to the emergency department if you develop worsening abdominal pain, inability to tolerate oral intake, fevers, chills, or if new concerns arise. - Attending Attestation I examined this patient and my medical decision-making was reviewed with the Resident Physician on 06/24/18. I agree with the documented findings, disposition and treatment plan as described except to the extent set forth below. Ms Hoover has been admitted for abdominal pain related to choledocholithiasis. She is now able to tolerate a diet. She is afebrile and ready for discharge home. Exam ALert COmfortable Mucus membranes dry Heart reg No wheeze abd soft Plan DC home today. <Naomy Bob N - Last Filed: 06/24/18 20:15> - NOTES TO OUTPATIENT PROVIDER Notes to Outpatient Provider: Patient was admitted with abdominal pain, nausea, and vomiting secondary to retained stone in billiary tree. ERCP was unsuccessful in crushing stone. Patient is to followup with Dr. Melo to have referral to [facility] for additional procedure. Orders not resulted at time of discharge: Pending orders 06/21/18 11:39 Culture,Blood [BC] Stat Date of Encounter: 06/24/18 Time of Encounter: 09:45 - Discharge Diagnosis (1) Abdominal pain Priority: Primary Status: Acute Qualifiers: Abdominal location: right upper quadrant Qualified Code(s): R10.11 - Right upper quadrant pain (2) Choledocholithiasis Priority: Secondary Status: Chronic (3) Opiate dependence Priority: Secondary Status: Chronic Qualifiers: Substance use status: in remission Qualified Code(s): F11.21 - Opioid dependence, in remission (4) Hep C w/o coma, chronic Priority: Secondary Status: Chronic Hospital course: Ms. Hoover is a 38 year old female who presented to the ED with abdominal pain, nausea, and vomiting approximately 3 weeks after laparoscopic cholecystectomy. Patient had known choledocholithiasis, with stent placed by Dr. Melo previously. Initial concern for bile leak; however, HIDA scan was negative. Patient underwent repeat ERCP with Dr. Melo; however, stone was not amenable to crushing with lithotripsy. Patient was recommended for outpatient followup at [facility] for additional procedure to crush stone, which she is agreeable to. Open bile duct exploration was offered by surgery; however, patient declined. Patient had good improvement in symptoms, and was able to tolerate regular diet without pain or vomiting prior to discharge. She was provided with prescription for zofran at time of discharge. - Time Spent with Patient Total time spent providing and/or coordinating discharge services: Date of admission: 06/21/18 18:51 Primary care physician: PCP NONE Consults: 06/21/18 15:06 Consult to Surgery [CONS] Stat Consulting Provider: Acute Care Surgery Reason for Consult: possible abscess vs leak post-op zakiya Time Notified: 15:07 Call Completed: Yes 06/21/18 17:45 Consult to Gastroenterology [CONS] Stat Consulting Provider: [facility] [place] Reason for Consult: s/p ERCP with stent and retained stone Call Completed: No Discharging clinician: Naomy Bob Anticipated date of discharge: 06/24/18 - Constitutional Vitals: Temp Pulse Resp BP Pulse Ox 98.1 F 81 20 138/87 98 06/24/18 07:27 06/24/18 07:27 06/24/18 07:27 06/24/18 07:27 06/24/18 07:27 General appearance: Present: A&O X 3, pleasant, answers questions appropriately Exam: GENERAL: Well-developed, well-nourished adult female in no acute distress. HEENT: Atraumatic and normocephalic. CARDIOVASCULAR: Regular rate and rhythm. S1 and S2 present. No murmurs, gallops, or rubs. RESPIRATORY: Clear to auscultation bilaterally. Chest rises and falls symmetrically without accessory muscle use. GASTROINTESTINAL: Abdomen is soft and nondistended. Bowel sounds present. Abdomen is nontender to palpation. EXTREMITIES: No clubbing, cyanosis, or edema. SKIN: Warm, dry, and intact. NEUROLOGIC: Alert and oriented x3. Patient is cooperative with exam and answers questions appropriately. No apparent focal deficits. PSYCHIATRIC: Appropriate mood and affect. - Patient Status Functional capacity at discharge: independent ambulation Overall status at discharge: patient is progressing back to baseline - Diet and Activity Activity: increase activity as tolerated Diet: advance to your usual diet
[2018-06-24] MEDS: Pantoprazole 40 MG VIAL IVP SCH (11:16)
[2018-06-24 11:21] VITALS: BP 143/82
== END 2018-06-24 15:43 | disposition home or self-care (01) | DRG 252 ==
LOC: 3BNU 10:45 → EMEROOARM 10:45 → SUATTDRO 16:02 → 3BNU 16:25
PROVIDERS: ADMIT Hospitalist; ATTEND Internal Medicine